=== PATIENT | female | born 1950 | race Caucasian/White ===

== ENCOUNTER → 2019-09-27 13:06 | Outpatient (CLI) | payer MEDICARE, SELFPAY ==
--- NOTE | ~2019-09-27 | XR_ITS ---
EXAMINATION: XR chest 2V EXAM DATE: 09/27/2019 13:14 INDICATION: Cough for one month. Pneumonia. TECHNIQUE: Frontal and lateral projections of the chest obtained and reviewed. Comparison is made to prior examination from 06/13/2018. FINDINGS: There is severe chronic hyperinflation. There is aortic arterial sclerosis. The lungs are clear. There are no pleural effusions. The cardiomediastinal silhouette is within normal limits. T here is no pneumothorax suspected. There is mild to moderate thoracolumbar scoliosis. There is no si gnificant interval change. IMPRESSION: 1. No acute cardiopulmonary findings. 2. Hyperinflation. Reviewed, dictated and finalized at location A.
== END ==
PROVIDERS: PCP Internal Medicine; Visit Provider Internal Medicine
DX: J18.9 Pneumonia, unspecified organism (principal); R91.8 Other nonspecific abnormal finding of lung field
CPT/HCPCS: 71046

== ENCOUNTER 2020-05-17 09:32 | Emergency (ER) | payer MEDICARE, SELFPAY ==
--- NOTE | ~2020-05-17 | XR_ITS ---
EXAMINATION: XR chest 2V EXAM DATE: 05/17/2020 09:55 INDICATION: COUGH x 8 mos, afebrile, back pain, prev smoker, hx of HTN . TECHNIQUE: Frontal and lateral projections of the chest obtained and reviewed. Comparison is made to prior examination from 09/27/2019. FINDINGS: Severe chronic hyperinflation. There is aortic arteriosclerosis. The lungs are clear. The re are no pleural effusions. The cardiomediastinal silhouette is within normal limits. There is no pneumothorax suspected. Mild thoracic, moderate lumbar scoliosis. IMPRESSION: 1. No acute cardiopulmonary findings. 2. Hyperinflation. Reviewed, dictated and finalized at location B. [employer]PER[employer]
[2020-05-17 09:37] VITALS: BP 157/88; PULSE 93; RESP 16; TEMP 37.3; O2SAT 97
--- NOTE | 2020-05-17 10:05 | ED.URI ---
HPI - URI/Sore Throat General Chief Complaint: Upper Respiratory Infection Stated Complaint: back pain/sinus draingage Source: patient Mode of arrival: ambulatory Limitations: no limitations History of Present Illness HPI Narrative: 70-year-old female presents to [facility] for complaints of postnasal drainage, chest congestion, dry cough and intermittent shortness of breath for the past 2 weeks. Patient reports that she has a long history of pneumonia. Patient reports that she was diagnosed in September and January. Patient reports that 2 weeks ago her primary care provider again diagnosed with pneumonia without completing a chest x-ray. Patient reports that she finished her antibiotic approximately 4 days ago. Patient is a smoker. Patient denies fever, bodies, chills, nausea, vomiting, diarrhea or wheezing. MD elicited complaint: cough Onset (ago): week(s) (2) Able to tolerate fluids by mouth: Yes Relieving factors: nothing Treatments prior to arrival: none Related Data Allergies Allergy/AdvReac Type Severity Reaction Status Date / Time celecoxib Allergy Severe Hives Verified 05/17/20 09:38 levofloxacin Allergy Intermediate itching Verified 05/17/20 09:38 Sulfa (Sulfonamide Allergy Intermediate Nausea Verified 05/17/20 09:38 Antibiotics) Review of Systems Constitutional: Constitutional: Denies chills, Denies fatigue, Denies fever(s) and Denies weakness ENT: Denies dysphagia, Denies dizziness, Denies epistaxis and Denies sore throat Comments: PND Cardiovascular: Cardiovascular: Denies chest pain and Denies radiating jaw, neck or arm pain Respiratory: Respiratory: Reports chest congestion, Reports cough, Reports dyspnea and Denies wheezing Gastrointestinal: Gastrointestinal: Denies abdominal pain, Denies constipation, Denies diarrhea, Denies nausea and Denies vomiting Musculoskeletal: Musculoskeletal: Denies back pain, Denies joint swelling and Denies muscle cramps Neurologic: Denies vertigo, Denies dizziness and Denies syncope Endocrine: Endocrine: Denies fatigue [facility] Past Medical History Medical History (Updated 05/17/20 @ 10:16 by Laura Dangelo APRN) Borderline hyperlipidemia Hypertension Tonsillectomy planned Family History Family History Mother Carcinoma of colon Father Carcinoma of colon Social History Social History Smoking status: Current every day smoker Second hand tobacco smoke exposure: No Alcohol intake: current Comments At time of signature, I agree with nursing past medical, surgical, social and family history. There is no relevant family history pertinent to the presenting complaint. Exam Const: General: no acute distress and alert Nutritional Appearance: well nourished Orientation/consciousness: patient oriented x3 HENMT: Head: normal to inspection Face and sinus: sinuses nontender Mouth: Yes Normal oral and palatal mucosa present, Yes lip normal and Yes moist mucous membranes Other: Mild amount of clear post-nasal drainage noted Neck: Neck: normal visual inspection and no lymphadenopathy Chest: Chest palpation & inspection: normal inspection of the chest Resp: Effort & Inspection: normal respiratory effort, not labored, not tachypneic and no use of accessory muscles Auscultation: no rales, no rhonchi, no wheezes and diminished lung sounds diffuse Cardio: Rate: regular rate, not bradycardic and not tachycardic Rhythm: regular rhythm Heart sounds: no murmurs Skin: General skin exam: normal color, no jaundice and no pallor Rashes: no rashes Wounds: no wounds Neuro: General: patient oriented x3, moves all extremities, no meningeal signs and no focal motor deficits Speech: normal speech Psych: Appearance: grossly normal Mental Status: mental status grossly normal Affect: normal affect Thought content: Yes Normal thought content present Course Vital Sign
== END 2020-05-17 10:21 | disposition home or self-care (01) ==
PROVIDERS: Emergency Provider Nurse Practitioner Family; PCP Internal Medicine
DX: J06.9 Acute upper respiratory infection, unspecified (principal); F17.200 Nicotine dependence, unspecified, uncomplicated; I10 Essential (primary) hypertension
CPT/HCPCS: 71046; 99213; G0463

== ENCOUNTER 2020-05-22 00:35 | Outpatient (CLI) | payer MEDICARE, SELFPAY ==
[2020-05-22 19:47] LABS: SARS-CoV-2 RNA PCR Negative
== END 2020-05-22 00:36 | disposition home or self-care (01) ==
LOC: ANHCOVIDDT 00:35
PROVIDERS: PCP Internal Medicine; Visit Provider Internal Medicine Gastroenterology
DX: Z01.818 Encounter for other preprocedural examination (principal); Z20.828 Contact with and (suspected) exposure to other viral communicable diseases
CPT/HCPCS: 87635; C9803; U0003

== ENCOUNTER 2020-05-25 00:20 | Day surgery (SDC) | payer MEDICARE, SELFPAY ==
[2020-05-18 14:35] VITALS: BMI 20.1
[2020-05-25 07:07] VITALS: BP 144/77; PULSE 108; RESP 16; TEMP 36.6; O2SAT 95; BMI 19.6
--- NOTE | 2020-05-25 07:12 | WPDANESEPPF ---
Anes - Initial Pre Proc Eval Procedure: Operation Date: 05/25/20 08:30 Proposed Procedures p Screening Colonoscopy - Zachary Martinez MD Date/Time: 05/25/20 07:12 Surgeon: Zachary Martinez MD Pre Op Diagnosis: Hx of Colon Polyps Patient Data Age: 70 Gender: F Height: 1.57 m Weight: 48.8 kg Last Vital Signs Temp 36.6 C 05/25/20 07:07 Pulse 108 H 05/25/20 07:07 Resp 16 05/25/20 07:07 BP 144/77 H 05/25/20 07:07 Pulse Ox 95 05/25/20 07:07 Allergies Allergy/AdvReac Type Severity Reaction Status Date / Time celecoxib Allergy Severe Hives Verified 05/25/20 07:06 levofloxacin Allergy Intermediate itching Verified 05/25/20 07:06 Sulfa (Sulfonamide Allergy Intermediate Nausea Verified 05/25/20 07:06 Antibiotics) Home Medications Medication Instructions Recorded Confirmed Type atorvastatin 20 mg tablet 20 mg PO DAILY 90 Days #90 tablet 04/30/20 05/18/20 Rx ergocalciferol (vitamin D2) 1,250 50,000 unit PO MONTHLY 90 Days #3 04/30/20 05/18/20 Rx mcg (50,000 unit) capsule cap pantoprazole 40 mg tablet,delayed 40 mg PO DAILY 90 Days #90 tablet 04/30/20 05/18/20 Rx release perindopril erbumine 8 mg tablet 8 mg PO DAILY 90 Days #90 tablet 04/30/20 05/18/20 Rx albuterol sulfate [ProAir HFA] 1 inh INHALATION QID PRN #6.7 g 05/17/20 05/18/20 Rx loratadine [Claritin] 10 mg PO DAILY PRN #30 tablet 05/17/20 05/18/20 Rx ibuprofen 600 mg PO TID PRN 05/18/20 05/18/20 History Patient hx anesthesia problems: none Family hx anesthesia problems: none PMFSH Past Medical History Medical History (Updated 05/18/20 @ 00:00 by Petrona Austin) Borderline hyperlipidemia Hypertension Tonsillectomy planned Family History Family History Mother Carcinoma of colon Father Carcinoma of colon Social History Social History Smoking packs per day: 0.5 Smoking cigarettes per day: 10.0 Years smoked: 50 Smoking pack-years: 25.00 Smoking status: Current every day smoker Tobacco type: cigarettes Second hand tobacco smoke exposure: No Alcohol intake: current Living arrangements: with family Gender identity (if verbalized by the patient): Female Spiritual care concerns: No Anes - Eval Final PreProcedure Day of Procedure 05/25/20 07:12 Patient weight: normal Heart: regular rate and rhythm Lungs: clear to auscultation and normal air movement Airway: Mallampati scale class II Neurological: alert and oriented Last oral intake: >/= 8 hours ASA classification: II Emergent: no Anesthetic plan: proceed Anesthesia type and monitoring: general GIVS Informed Consent: The patient's anesthetic plan and its attendant risks and benefits were discussed with the patient/family/POA. Questions were solicited and answers provided to the satisfaction of the patient/family/POA.
[2020-05-25] MEDS: LACTATED RINGERS 1,000 ML 150 ML IV CONT (07:18)
--- NOTE | 2020-05-25 08:05 | WPDGICN ---
Assessment and Plan Assessment and plan (1) Personal history of colonic polyps: Code(s): Z86.010 - Personal history of colonic polyps Status: Acute Assessment and Plan: Patient has had colon polyps on several occasions in the past. Family history is significant both mother father and grandfather have had colon cancer. Plan is for surveillance colonoscopy now and at every 2-3 year intervals in the future. (2) Encounter for colonoscopy in patient with family history of colon cancer: Code(s): Z12.11 - Encounter for screening for malignant neoplasm of colon; Z80.0 - Family history of malignant neoplasm of digestive organs Status: Acute GI Consult Note Consult date/time: 05/25/20 08:05 HPI: Delilah Baltazar is a 70 year old female Presents for follow-up surveillance colonoscopy. Patient has had colon polyps in the past. Most recent colonoscopy 2018. Revealed several colon polyps. Family history is significant both mother father and grandfather all of had colon cancer. Patient states that her current weight appetite bowel movements are normal. She denies abdominal pain. She has had no bleeding. [facility] Past Medical History Medical History (Updated 05/25/20 @ 08:06 by Zachary Martinez MD) Borderline hyperlipidemia Hypertension Tonsillectomy planned Family History Family History Mother Carcinoma of colon Father Carcinoma of colon Social History Social History Smoking packs per day: 0.5 Smoking cigarettes per day: 10.0 Years smoked: 50 Smoking pack-years: 25.00 Smoking status: Current every day smoker Tobacco type: cigarettes Second hand tobacco smoke exposure: No Alcohol intake: current Living arrangements: with family Gender identity (if verbalized by the patient): Female Spiritual care concerns: No Meds Home Medications and Allergies Home Medications Medication Instructions Recorded Confirmed Type atorvastatin 20 mg tablet 20 mg PO DAILY 90 Days #90 tablet 04/30/20 05/18/20 Rx ergocalciferol (vitamin D2) 1,250 50,000 unit PO MONTHLY 90 Days #3 04/30/20 05/18/20 Rx mcg (50,000 unit) capsule cap pantoprazole 40 mg tablet,delayed 40 mg PO DAILY 90 Days #90 tablet 04/30/20 05/18/20 Rx release perindopril erbumine 8 mg tablet 8 mg PO DAILY 90 Days #90 tablet 04/30/20 05/18/20 Rx albuterol sulfate [ProAir HFA] 1 inh INHALATION QID PRN #6.7 g 05/17/20 05/18/20 Rx loratadine [Claritin] 10 mg PO DAILY PRN #30 tablet 05/17/20 05/18/20 Rx ibuprofen 600 mg PO TID PRN 05/18/20 05/18/20 History Allergies Allergy/AdvReac Type Severity Reaction Status Date / Time celecoxib Allergy Severe Hives Verified 05/25/20 07:06 levofloxacin Allergy Intermediate itching Verified 05/25/20 07:06 Sulfa (Sulfonamide Allergy Intermediate Nausea Verified 05/25/20 07:06 Antibiotics) Vital Signs Vital Signs - 24 hr 05/25/20 07:07 Temperature 97.8 F Pulse Rate 108 H Respiratory Rate 16 Blood Pressure 144/77 H Pulse Oximetry 95 Exam Narrative: Exam Narrative: Physical exam reveals patient to be alert. Vital signs stable. HEENT exam unremarkable. Lungs are clear to auscultation and percussion. Heart is without murmur or extra sounds. Abdominal exam bowel sounds are present soft nontender with no organomegaly. Digital external rectal exam normal.
[2020-05-25 08:30] VITALS: BP 94/52; PULSE 77; RESP 23; O2SAT 95
[2020-05-25 08:40] VITALS: BP 125/62; PULSE 67; RESP 18; O2SAT 93
[2020-05-25 08:50] VITALS: BP 134/68; PULSE 72; RESP 16; O2SAT 93
== END 2020-05-25 09:07 | disposition home or self-care (01) ==
PROVIDERS: PCP Internal Medicine; Visit Provider Internal Medicine Gastroenterology
PROC: 0DJD8ZZ Inspection of Lower Intestinal Tract, Via Natural or Artificial Opening Endoscopic (ICD-10-PCS; CPT 45378; principal; 2020-05-25 08:30)
DX: Z12.11 Encounter for screening for malignant neoplasm of colon (principal); K63.5 Polyp of colon; K62.1 Rectal polyp; K57.30 Diverticulosis of large intestine without perforation or abscess without bleeding; K64.8 Other hemorrhoids; Z80.0 Family history of malignant neoplasm of digestive organs; I10 Essential (primary) hypertension; F17.210 Nicotine dependence, cigarettes, uncomplicated
CPT/HCPCS: 45385; 45388; 87635; 88305; C9803; J2704; J7120; U0003

== ENCOUNTER 2021-02-25 14:22 | Outpatient (CLI) | payer MEDICARE, SELFPAY ==
--- NOTE | ~2021-02-25 | CT_ITS ---
EXAMINATION:CT lung screening DATE: 02/25/2021 14:39 INDICATION: Personal history of tobacco dependence. Current smoker with 50 pack year history. TECHNIQUE: Computed tomography (CT) of the chest was performed without intravenous contrast. Automate d exposure control and iterative reconstruction technique were employed. The dose-length product (DLP ) was 62.28 mGy-cm. COMPARISON: Chest 2 views 05/17/2020 FINDINGS: There is moderate emphysema. There is mild atelectasis bilaterally. There is mild scarring at the lung apices. Calcified left hilar and mediastinal lymph nodes are consistent with old granulom atous disease. The heart size is normal. There are coronary artery calcifications. No pericardial eff usion. Calcifications in the spleen are consistent with old granulomatous disease. There is a 1.9 cm cyst in the liver. There is levoscoliosis of cervicothoracic spine. There is mild thoracic spondylosi s. IMPRESSION: 1. Lung-RADS category 2: Benign appearance or behavior. Continue annual screening with noncontrast lo w-dose chest CT in 12 months. Reviewed, dictated and finalized at location B. IMPRESSION: 1. Lung-RADS category 2: Benign appearance or behavior. Continue annual screeni ng with noncontrast low-dose chest CT in 12 months.
== END 2021-02-25 14:23 | disposition home or self-care (01) ==
PROVIDERS: PCP Internal Medicine; Visit Provider Internal Medicine
DX: Z87.891 Personal history of nicotine dependence (principal)
CPT/HCPCS: 71271

== ENCOUNTER 2021-04-01 14:05 | Outpatient (CLI) | payer MEDICARE, SELFPAY ==
--- NOTE | ~2021-04-01 | US_ITS ---
EXAMINATION: US arterial ankle brachial ind DATE: 04/01/2021 14:37 INDICATION: Peripheral vascular disease. TECHNIQUE: Segmental pressures and plethysmographic and Doppler waveforms of the brachial and lower e xtremity arteries were obtained. COMPARISON: None. FINDINGS: Right and left brachial artery pressures of 152 mm Hg and 149 mm Hg, respectively, are concordant (no rmal difference <= 30 mmHg). The right ankle-brachial index (ASIA) is 0.89 (normal >= 0.9-1.0). The right great toe-brachial index (TBI) is 0.70 (normal >= 0.65). Arterial Doppler waveforms are biphasic with brisk systolic upstrokes at both the right posterior tibial and dorsalis pedis arteries. The left ASIA is 1.15. The left TBI is 0.68. Arterial Doppler waveforms are biphasic with brisk systol ic upstrokes at both the left posterior tibial and dorsalis pedis arteries. IMPRESSION: 1. Possible mild arterial occlusive disease to the right lower limb with borderline right ASIA but nor mal right TBI. 2. No significant arterial occlusive disease to the left lower limb with normal left ASIA and TBI. Reviewed, dictated and finalized at location A. IMPRESSION: 1. Possible mild arterial occlusive disease to the right lower limb with border line right ASIA but normal right TBI. 2. No significant arterial occlusive disease to the left lower limb with normal left ASIA and TBI.
== END 2021-04-01 14:06 | disposition home or self-care (01) ==
PROVIDERS: PCP Internal Medicine; Visit Provider Internal Medicine
DX: I73.9 Peripheral vascular disease, unspecified (principal)
CPT/HCPCS: 93922

== ENCOUNTER 2021-04-15 14:23 | Outpatient (CLI) | payer MEDICARE, SELFPAY ==
--- NOTE | ~2021-04-15 | MM_ITS ---
EXAMINATION: MM screening jorge l BI w doug HISTORY: Screening mammogram TECHNIQUE: Craniocaudal and mediolateral oblique 3-D tomosynthesis images were obtained and synthetic 2-D images were generated. CAD analysis was submitted and interpreted. COMPARISON: No prior mammogram is available for comparison at this institution. BREAST PARENCHYMAL COMPOSITION: The breasts are heterogeneously dense, which may obscure small masses . FINDINGS: RIGHT BREAST: There is a possible mass in the middle third of the slightly outer breast best apprecia asif 3.5 cm from the nipple on the craniocaudal view. LEFT BREAST: There is no evidence of suspicious mass, calcification, or architectural distortion to s uggest malignancy. IMPRESSION: 1. Possible right breast mass. 2. Additional mammographic views and possible breast ultrasound are recommended. BI-RADS Category 0: Incomplete: Needs additional imaging evaluation. Reviewed, dictated and finalized at location A. IMPRESSION: 1. Possible right breast mass. 2. Additional mammographic views and possible breast ultrasound are recommended . BI-RADS Category 0: Incomplete: Needs additional imaging evaluation.
--- NOTE | ~2021-04-15 | DEXA_ITS ---
Bone Density Report Name: Delilah Baltazar Age: 71 Sex: Female Ethnicity: White Date of : 1950 Indication: postmenopausal; Referring Provider: AMARILYS WESTFALL Study: Bone densitometry was performed. Exam Date: April 15, 2021 Accession number: [id number] Bone Density: Region BMD T-score Z-score Classification AP Spine (L1, L2) 1.001 0.2 2.2 Normal Femoral Neck (Left) 0.680 -1.5 0.3 Osteopenia Total Hip (Left) 0.800 -1.2 0.4 Osteopenia Total Hip Bilateral Avg 0.797 -1.2 0.4 Osteopenia Femoral Neck (Right) 0.662 -1.7 0.2 Osteopenia Total Hip (Right) 0.793 -1.2 0.3 Osteopenia World Health Organization criteria for BMD impression classify patients as: Normal (T-score at or above -1.0), Osteopenia (T-score between -1.0 and -2.5), or Osteoporosis (T-score at or below -2.5). 10-year Fracture Risk(1): Major Osteoporotic Fracture 9.7% Hip Fracture 1.7% Reported Risk Factors: [place] (), Neck BMD=0.662, BMI=21.9 (1) FRAX(R) Version 3.08. Fracture probability calculated for an untreated patient. Fracture probability may be lower if the patient has received treatment. Clinical Information Provided by Patient: Has used the following medications: Vitamin D Patient maximum height was 62 Menopause Age: 50 Drinks caffeinated beverages Onset of menses at age 14 Number of children 2 Impression: The patient has low bone mass, based on the Right Femoral Neck T-score. The patient has an estimated ten-year risk of hip fracture of 1.7% and an estimated ten-year risk of major fracture of 9.7%, based on the WHO FRAX algorithm. Discussion: BONE DENSITY IS LOW AT ONE OR MORE SKELETAL SITES. This patient's lowest T-score is low at one or more skeletal sites. It meets the World Health Organization's (WHO) criteria for ?low bone mass? (T-score between -1.0 and -2.5). The patient's 10-year risk of fracture as calculated by FRAX is less than the threshold where pharmacological therapy is recommended by the National Osteoporosis Foundation (NOF). However, all treatment decisions require clinical judgment and consideration of individual patient factors, including patient preferences, comorbidities, previous drug use, risk factors not captured in the FRAX model (e.g., frailty, falls, vitamin D deficiency, increased bone turnover, interval significant decline in bone density) and possible under or overestimation of fracture risk by FRAX. The patient should follow a healthful lifestyle (good nutrition with adequate calcium and vitamin D, and appropriate weight-bearing exercise). Follow-Up: Consider repeating this study in 2 to 3 years to reassess this patient's status, or sooner if there is some new clinical indication. Reported by: [facility] on 04/15/2021 2:51:00 PM. Re
== END 2021-04-15 14:24 | disposition home or self-care (01) ==
LOC: ANHIMG 14:25
PROVIDERS: PCP Internal Medicine; Visit Provider Internal Medicine
DX: Z12.31 Encounter for screening mammogram for malignant neoplasm of breast (principal); Z78.0 Asymptomatic menopausal state; M85.89 Other specified disorders of bone density and structure, multiple sites; R92.8 Other abnormal and inconclusive findings on diagnostic imaging of breast
CPT/HCPCS: 77063; 77067; 77080

== ENCOUNTER 2021-04-24 10:53 | Outpatient (CLI) | payer MEDICARE, SELFPAY ==
--- NOTE | ~2021-04-24 | MMUS_ITS ---
EXAMINATION: MM diagnostic jorge l RT w doug, US breast RT limited HISTORY: Follow-up right breast asymmetry TECHNIQUE: Additional 3-D tomosynthesis images of the right breast were performed and synthetic 2-D i mages were generated. CAD analysis was submitted and interpreted. High resolution Limited right breas t ultrasound was performed. COMPARISON: 04/15/2021 BREAST PARENCHYMAL COMPOSITION: Breast composed of scattered areas of fibroglandular density. FINDINGS: MAMMOGRAPHIC FINDINGS: There are no suspicious masses, calcifications or architectural distortion in the right breast to sug gest malignancy. ULTRASOUND: Limited right breast ultrasound: Normal heterogeneous echotexture without focal solid or cystic mass. IMPRESSION: 1. No evidence for malignancy in the right breast. 2. Routine yearly screening mammogram and regular clinical breast examination are recommended. BI-RADS Category 1: Negative Reviewed, dictated and finalized at location A. IMPRESSION: 1. No evidence for malignancy in the right breast. 2. Routine yearly screening mammogram and regular clinical breast examination a re recommended. BI-RADS Category 1: Negative
== END 2021-04-24 10:54 | disposition home or self-care (01) ==
LOC: ANHIMG 10:54
PROVIDERS: PCP Internal Medicine; Visit Provider Internal Medicine
DX: R92.8 Other abnormal and inconclusive findings on diagnostic imaging of breast (principal)
CPT/HCPCS: 76642; 77061; 77065; G0279

== ENCOUNTER 2022-02-20 14:40 | Emergency (ER) | payer MEDICARE, SELFPAY ==
--- NOTE | 2022-02-20 14:42 | ED.UPPEXIN ---
HPI - Extremity Injury (Upper) General Chief Complaint: Extremity Problem,Nontraumatic Stated Complaint: Left Wrist Pain Time Seen by Provider: 02/20/22 14:42 Source: patient Mode of arrival: ambulatory Limitations: no limitations History of Present Illness HPI narrative: Ms. Baltazar is a 71-year-old female patient presenting to the clinic today with complaints of left wrist pain times. She reports Related Data Home Medications Medication Instructions Recorded Confirmed cholecalciferol (vitamin D3) 1,250 50,000 unit PO MONTHLY 11/29/20 02/20/22 mcg (50,000 unit) capsule triamcinolone acetonide 10 mg/mL 10 mg subcut .3 month 02/21/21 02/20/22 suspension for injection Allergies Allergy/AdvReac Type Severity Reaction Status Date / Time celecoxib Allergy Severe Hives Verified 02/20/22 14:48 levofloxacin Allergy Intermediate Nausea Verified 02/20/22 14:48 Sulfa (Sulfonamide Allergy Intermediate Nausea Verified 02/20/22 14:48 Antibiotics) Review of Systems Review of Systems: Pertinent positives per HPI. Patient denies any fever, chills, rash, headache, visual changes, dizziness, cough, runny nose, sore throat, shortness of breath, chest pain, palpitations, nausea, vomiting, diarrhea, constipation, abdominal pain, or any urinary issues. [facility] Past Medical History Medical History Borderline hyperlipidemia Hypertension Tonsillectomy planned Surgical History Surgical History H/O colonoscopy 05/25/2020 Dr. Martinez + colonic polyp repeat in 2-3 years. Family History Family History Mother Carcinoma of colon Father Carcinoma of colon Social History Social History Smoking packs per day: 0.5 Smoking cigarettes per day: 10.0 Years smoked: 50 Smoking pack-years: 25.00 Smoking status: Former smoker Tobacco type: cigarettes Second hand tobacco smoke exposure: No Smoking end date: 12/14/20 Alcohol intake: never Substance use: never Gender identity (if verbalized by the patient): Female Spiritual care concerns: No Comments At the time of my signature, I reviewed and agree with the nursing past medical, surgical, social, and family history. There is no relevant family history pertinent to the patient complaint. Exam Narrative: General: Well-developed, well nourished, in no apparent distress Head: Normocephalic, atraumatic. Cardio: Regular rate and rhythm, s1 and s2 normal, no murmur appreciated. Resp: Clear to auscultation bilaterally, no rhonchi, rales, wheezing or rubs. Musculoskeletal: No deformity, non-tender to palpation, grossly normal range of motion, muscle strength strong and equal, peripheral pulse strong, no edema, no cyanosis, normal gait and station Course Course Emergency Course: Portions of this record may have been created with voice recognition software. Level of Care: Express Care Visit Vital Signs Vital signs: Vital signs reviewed MDM - Extremity Injury (Upper) MDM Narrative Medical decision making narrative: At the time of visit patient is resting comfortably on the exam table. Differential Diagnosis Differential diagnosis: Likely sprain and strain of wrist and fracture of wrist Discharge Plan Discharge Clinical Impression: Acute pain of left wrist Patient Disposition: Home, Self-Care Condition: Stable Instructions: Antibiotic Form, Arthralgia (ED), Tendinitis (ED) Additional Instructions: Left wrist pain likely from tendonitis. Take Naproxen as prescribed. Rest, ice, and elevate. Wear wrist brace x 1 week. Follow up with your PCP in 1-2 weeks if symptoms persist. Prescriptions: New naproxen 500 mg tablet 500 mg PO BID PRN (Reason: pain) 7 Days Qty: 14 0RF No A
[2022-02-20 14:49] VITALS: BP 163/81; PULSE 74; RESP 16; TEMP 35.8; O2SAT 96
[2022-02-20 14:50] VITALS: BP 163/81; PULSE 74; RESP 16; TEMP 35.8; O2SAT 96
== END 2022-02-20 14:58 | disposition home or self-care (01) ==
PROVIDERS: Emergency Provider Nurse Practitioner Family; PCP Internal Medicine
DX: M25.532 Pain in left wrist (principal); Z87.891 Personal history of nicotine dependence; I10 Essential (primary) hypertension
CPT/HCPCS: 99213; G0463

== ENCOUNTER 2022-02-24 07:48 | Outpatient (CLI) | payer MEDICARE, SELFPAY ==
[2022-02-24 09:00] LABS: Basophils Absolute Auto 0.1 K/mm3 (0.0-0.1); Basophils Percent Auto 0.8 % (0.2-1.2); Eosinophils Absolute Auto 0.3 K/mm3 (0-0.3); Eosinophils Percent Auto 4.3 % (0-4.4); Hematocrit 38.9 % (37.0-47.0); Hemoglobin 12.1 g/dL (12.0-15.0); Immature Granulocyte Absolute 0.02 K/mm3 (0.00-0.031); Immature Granulocyte Percent A 0.3 % (0-0.5); Lymphocytes Absolute Auto 1.51 K/mm3 (0.9-3.2); Lymphocytes Percent Auto 24.8 % (18.3-44.2); Mean Corpuscular HGB Conc 31.1 g/dl (32-36); Mean Corpuscular Hemoglobin 29.4 pg (26-34); Mean Corpuscular Volume 94.4 fl (80-100); Monocytes Absolute Auto 0.8 K/mm3 (0.1-0.6); Monocytes Percent Auto 12.3 % (2.6-8.5); Neutrophils Absolute Auto 3.5 K/mm3 (1.3-6.7); Neutrophils Percent Auto 57.5 % (45.5-73.1); Platelet Count Result 214 k/mm3 (150-375); Red Blood Count 4.12 M/mm3 (4.2-5.4); White Blood Count 6.1 K/mm3 (4.5-10.0)
[2022-02-24 09:11] LABS: Albumin Level 4.2 g/dL (3.5-5.1); Anion Gap 8 mmol/L (8-16); Blood Urea Nitrogen 23 mg/dL (7-17); Calcium 9.4 mg/dL (8.4-10.2); Carbon Dioxide 28 mmol/L (22-30); Chloride 100 mmol/L (98-107); Estimated Glomerular Filt Rate > 60; Glucose 91 mg/dL (65-110); Sodium 136 mmol/L (137-145)
[2022-02-24 09:29] LABS: Urine Cotinine NEGATIVE
[2022-02-24 09:41] LABS: Hemoglobin A1C 5.4 % (<5.7)
== END 2022-02-24 07:49 | disposition home or self-care (01) ==
LOC: ANHSURGERY 07:51
PROVIDERS: PCP Internal Medicine; Visit Provider Orthopaedic Surgery
DX: Z01.818 Encounter for other preprocedural examination (principal); M17.0 Bilateral primary osteoarthritis of knee
CPT/HCPCS: 80048; 80307; 82040; 83036; 85025; 87070

== ENCOUNTER 2022-02-28 07:25 | Outpatient (CLI) | payer MEDICARE, SELFPAY ==
--- NOTE | ~2022-02-28 | XR_ITS ---
EXAMINATION: XR wrist LT min 3V DATE: 02/28/2022 07:50 INDICATION: Left wrist pain TECHNIQUE: Posteroanterior, ulnar deviation, oblique, and lateral views of the left wrist were obtain ed. COMPARISON: None available FINDINGS: No fracture is identified. There is moderate osteoarthritis at the triscaphe joint and mild osteoarthritis at the first carpometacarpal joint. Negative ulnar variance is noted. The soft tissue s are unremarkable. IMPRESSION: 1. Osteoarthritis without acute osseous abnormality. Reviewed, dictated and finalized at location A.
== END 2022-02-28 07:26 | disposition home or self-care (01) ==
PROVIDERS: PCP Internal Medicine; Visit Provider Nurse Practitioner
DX: M25.532 Pain in left wrist (principal); M19.032 Primary osteoarthritis, left wrist
CPT/HCPCS: 73110

== ENCOUNTER 2022-03-12 00:30 | Day surgery (SDC) | payer MEDICARE, SELFPAY ==
--- NOTE | 2022-02-24 07:49 | PC.NURSE ---
PRE-OP INSTRUCTIONS, PLEASE READ CAREFULLY Report to the Outpatient Waiting Room, entrance under the green pavilion located off [facility], at time _1000_ on date _03/12/22_. OR Time: _1200_. - You and your visitor will be asked to self-screen and do not enter if you have any COVID symptoms. - A mask is required within the hospital. - Only one visitor and NO children visitors are allowed at this time. - The patient visitor is requested to leave or wait in car when not with patient due to restrictions. -PACK A SMALL OVERNIGHT BAG AND LEAVE IN THE CARE. VISITING HOURS 10AM-8PM. PARK IN FRONT PARKING LOT AND USE MAIN HOSPITAL ENTRANCE. Patients may have clear liquids (water, carbonated beverages, clear teas, apple juice) until 3 hours prior to surgery (0900 AM) with a maximum of 20 ounces. - No food from midnight until time of surgery Take the following medications with a SIP of water the morning of surgery: _AMLODIPINE_ Medications to discontinue per DR. LO - _IBUPROFEN 7 DAYS PRIOR TO SURGERY, Date to take last dose 03/04/22_ Please no make-up, nail albanian, hairspray, perfume, deodorant, or body powder the day of surgery. No jewelry (including any body piercings) or valuables the day of surgery, leave them at home. Please take a shower or bath the night before, or the morning of, surgery with an antibacterial soap. Wear comfortable, loose fitting clothing. - Jewelry must be removed prior to entering the operating room. Rings and piercings that are not removed may be cut off. - The hospital will not accept responsibility for valuables. - Please leave all valuables, including medications, at home the day of surgery. If you are going home after surgery, a licensed warehouse driver must drive you home. - NO public transportation without another adult. - We recommend that an adult stay with you for 24 hours following discharge. - We also recommend that you do not drive, make important decision, drink alcoholic beverages, or take any drugs that were not prescribed by your health care provider for at least 24 hours after your discharge time. Follow any additional instructions given to you from your surgeon. TOTAL JOINT CLASS 02/26/22 @ [facility] MAIN ENTRANCE - LOWER LEVEL If you or anyone in your household have experienced Covid symptoms in the past week, please notify your surgeon or the nurse liaison at the phone number below for possible testing. Instructions given to __PT__and asked if any additional questions and then verbalized understanding. Patient advised to call surgeon office or pre surgery nurse liaison [phone] if any additional questions.
[2022-02-24 08:12] VITALS: BP 154/78; PULSE 76; RESP 18; TEMP 37; O2SAT 93; BMI 23.2
--- NOTE | 2022-03-10 12:03 | PM.IMHP ---
H&P: HPI History of Present Illness Date/Time: 03/10/22 12:03 Chief Complaint: Bilateral knee DJD Narrative: 71-year-old female patient of Dr. Nick who presents today for right total knee arthroplasty with cortisone injection in the left. Patient has been having pain in her knees for years. She has been treating this nonsurgically with cortisone injections every 3 months as well as ibuprofen 600 mg 3 times a day. She has severe medial compartment arthritis in both knees. She has reached a point where the injections and the medications are not improving her symptoms well enough. She is a very active individual and the pain in her knee starting to prevent her from being active. She feels this point she is ready to proceed with total knee arthroplasty. She will also be receiving cortisone injection in the left knee at the time surgery as well. Review of Systems Review of Systems: All systems reviewed & are unremarkable except as noted in HPI and below PMFSH Past Medical History Medical History Borderline hyperlipidemia Hypertension Tonsillectomy planned Surgical History Surgical History H/O colonoscopy 05/25/2020 Dr. Martinez + colonic polyp repeat in 2-3 years. Family History Family History Mother Carcinoma of colon Father Carcinoma of colon Social History Social History Smoking packs per day: 0.5 Smoking cigarettes per day: 10.0 Years smoked: 50 Smoking pack-years: 25.00 Smoking status: Former smoker Tobacco type: cigarettes Second hand tobacco smoke exposure: No Smoking end date: 12/14/20 Additional smoking assessment comments: PT DENIES ALL FORMS OF TOBACCO USE Alcohol intake: never Substance use: never Substance use type: does not use Gender identity (if verbalized by the patient): Female Spiritual care concerns: No Meds Home Medications and Allergies Home Medications Medication Instructions Recorded Confirmed Type amlodipine 5 mg tablet 5 mg PO DAILY #90 tabs 09/30/21 02/28/22 Rx pantoprazole 40 mg tablet,delayed 40 mg PO DAILY 90 days #90 tabs 09/30/21 02/28/22 Rx release tiotropium 2.5 mcg-olodaterol 2.5 2 puff inhalation DAILY #4 grams 09/30/21 02/28/22 Rx mcg/actuation mist for inhalation (Stiolto Respimat) atorvastatin 20 mg tablet 20 mg PO DAILY 90 days #90 tabs 10/15/21 02/28/22 Rx perindopril erbumine 8 mg tablet 8 mg PO DAILY 90 days #90 tabs 11/18/21 02/28/22 Rx cholecalciferol (vitamin D3) 50 50 mcg PO DAILY 02/24/22 02/28/22 History mcg (2,000 unit) tablet ibuprofen 600 mg tablet 600 mg PO TID PRN Pain 02/24/22 02/28/22 History Allergies Allergy/AdvReac Type Severity Reaction Status Date / Time celecoxib Allergy Severe Hives Verified 03/06/22 12:48 levofloxacin Allergy Intermediate Nausea Verified 03/06/22 12:48 Sulfa (Sulfonamide Allergy Intermediate Nausea Verified 03/06/22 12:48 Antibiotics) Exam Narrative: 71-year-old female alert pleasant. She is 5 ft tall 122 lb. Range of motion right knee is from 3-155 degrees. 2+ dorsalis pedis and posterior artery pulse palpable. Hip range of motion is full without discomfort. Negative Stinchfield maneuver. Normal quad strength. Mild tenderness over the medial joint line to palpation. No edema in lower extremity. Normal sensation to the right lower extremity. Resp: Auscultation: clear to auscultation bilaterally Cardio: Rate: regular rate Rhythm: regular rhythm Assessment and Plan Assessment and plan (1) Left knee DJD: Code(s): M17.12 - Unilateral primary osteoarthritis, left knee Status: Acute (2) Right knee DJD: Code(s): M17.11 - Unilateral primary osteoarthritis, right knee Status: Acute Plan 71-year-old female who has
--- NOTE | 2022-03-11 13:16 | WPDANESEPPF ---
Anes - Initial Pre Proc Eval Procedure: Operation Date: 03/12/22 12:00 Proposed Procedures p Total Right Knee Arthroplasty, Cortisone Injection Left Knee - Chacorta Dunlap MD Date/Time: 03/11/22 13:16 Surgeon: Chacorta Dunlap MD Pre Op Diagnosis: O.A. Both Knees Patient Data Age: 71 Gender: F Height: 1.57 m Weight: 57.7 kg Last Vital Signs Temp 37.0 C 02/24/22 08:12 Pulse 76 02/24/22 08:12 Resp 18 02/24/22 08:12 BP 154/78 H 02/24/22 08:12 Pulse Ox 93 02/24/22 08:12 O2 Del Method Room Air 02/24/22 08:12 Allergies Allergy/AdvReac Type Severity Reaction Status Date / Time celecoxib Allergy Severe Hives Verified 03/12/22 11:14 levofloxacin Allergy Intermediate Nausea Verified 03/12/22 11:14 Sulfa (Sulfonamide Allergy Intermediate Nausea Verified 03/12/22 11:14 Antibiotics) Home Medications Medication Instructions Recorded Confirmed Type amlodipine 5 mg tablet 5 mg PO DAILY #90 tabs 09/30/21 02/28/22 Rx pantoprazole 40 mg tablet,delayed 40 mg PO DAILY 90 days #90 tabs 09/30/21 02/28/22 Rx release tiotropium 2.5 mcg-olodaterol 2.5 2 puff inhalation DAILY #4 grams 09/30/21 02/28/22 Rx mcg/actuation mist for inhalation (Stiolto Respimat) atorvastatin 20 mg tablet 20 mg PO DAILY 90 days #90 tabs 10/15/21 02/28/22 Rx perindopril erbumine 8 mg tablet 8 mg PO DAILY 90 days #90 tabs 11/18/21 02/28/22 Rx cholecalciferol (vitamin D3) 50 50 mcg PO DAILY 02/24/22 02/28/22 History mcg (2,000 unit) tablet ibuprofen 600 mg tablet 600 mg PO TID PRN Pain 02/24/22 02/28/22 History Patient hx anesthesia problems: none Family hx anesthesia problems: none Results Review: All pre-operative results and documents have been reviewed as part of the pre-operative evaluation. [facility] Past Medical History Medical History (Updated 03/11/22 @ 13:17 by Antwon Lynn MD) Borderline hyperlipidemia Chronic GERD COPD (chronic obstructive pulmonary disease) with chronic bronchitis Hypertension Osteoarthritis Personal history of nicotine dependence Tonsillectomy planned Surgical History Surgical History H/O colonoscopy 05/25/2020 Dr. Martinez + colonic polyp repeat in 2-3 years. Family History Family History Mother Carcinoma of colon Father Carcinoma of colon Social History Social History Smoking packs per day: 0.5 Smoking cigarettes per day: 10.0 Years smoked: 50 Smoking pack-years: 25.00 Smoking status: Former smoker Tobacco type: cigarettes Second hand tobacco smoke exposure: No Smoking end date: 12/14/20 Additional smoking assessment comments: PT DENIES ALL FORMS OF TOBACCO USE Alcohol intake: never Substance use: never Substance use type: does not use Living arrangements: alone Gender identity (if verbalized by the patient): Female Spiritual care concerns: No Anes - Eval Final PreProcedure Day of Procedure 03/11/22 13:16 Patient weight: normal Heart: regular rate and rhythm Lungs: clear to auscultation and normal air movement Airway: Mallampati scale class II Neurological: alert and oriented Last oral intake: >/= 8 hours ASA classification: III Emergent: no Anesthetic plan: proceed Anesthesia type and monitoring: general LMA Results Review: All pre-operative results and documents have been reviewed as part of the pre-operative evaluation. Informed Consent: The patient's anesthetic plan and its attendant risks and benefits were discussed with the patient/family/POA. Questions were solicited and answers provided to the satisfaction of the patient/family/POA.
[2022-03-12] VITALS (14 sets, daily range): BP systolic 134–161; BP diastolic 56–90; PULSE 82–99; RESP 10–24; TEMP 33.9–37.2; O2SAT 87–98
--- NOTE | ~2022-03-12 | XR_ITS ---
EXAMINATION: XR knee RT 2V DATE: 03/12/2022 17:17 INDICATION: Postoperative evaluation following right total knee arthroplasty. TECHNIQUE: Anteroposterior and lateral views of the right knee were obtained. COMPARISON: None. FINDINGS: Right total knee arthroplasty without patellar resurfacing appears well seated and in near anatomic a lignment. No fractures identified. Expected postoperative subcutaneous and intra-articular gas. IMPRESSION: 1. Right total knee arthroplasty, negative for postoperative purposes. Reviewed, dictated and finalized at location A.
[2022-03-12] MEDS: LACTATED RINGERS 1,000 ML 30 ML IV CONT ×2 (11:00→16:19)
[2022-03-12] MEDS: TRANEXAMIC ACID 1,000MG/ISO100 1,000 MG/100 ML BAG 200 MG IVPB (11:00)
[2022-03-12] MEDS: ACETAMINOPHEN 500 MG TABLET 1000 MG PO (11:00)
--- NOTE | 2022-03-12 12:11 | WPDHPUPDATE1 ---
History and Physical Update Update Date/Time: 03/12/22 12:11 History and Physical has been reviewed, including an updated exam of the patient. There are NO changes in the patient's condition. Risks, benefits, and alternatives have been discussed and questions answered. Patient agrees to proceed with procedure.
[2022-03-12] MEDS: ceFAZolin 2 GM/D5W 50 ML 2 GM/50 ML BAG IVPB (12:44)
[2022-03-12] MEDS: LIDOCAINE HCL 1% PF 30 ML VIAL INFILTRATE (13:00)
[2022-03-12] MEDS: methylPREDNISolone ACETATE 80 MG/ML VIAL IM (13:00)
[2022-03-12] MEDS: ceFAZolin SODIUM 1 GM VIAL 3 GM IRRIGATION (13:23)
[2022-03-12] MEDS: GENTAMICIN BONE CEMENT REFOBACIN 1 EACH TOPICAL (14:38)
[2022-03-12] MEDS: TRANEXAMIC ACID 1,000 MG/10 ML AMPUL 1000 MG IV PUSH (15:02)
[2022-03-12] MEDS: ceFAZolin SODIUM 1 GM VIAL IV PUSH (15:03)
--- NOTE | 2022-03-12 16:00 | W.PM.PROC2 ---
Procedure Note - Detailed Date of Procedure 03/12/22 Pre-op Diagnosis O.A. Both Knees Post-op Diagnosis Same Procedure Performed Cortisone injection left knee, right total knee arthroplasty Surgeon Chacorta Dunlap MD Hinging Machine Operator Galdino Anesthesia General Description of Procedure Patient was brought to the operating room general anesthesia was administered. She received 2 g Ancef weight based vancomycin 1 g of tranexamic acid preoperatively. The left knee was prepped with ChloraPrep and 80 mg of Depo-Medrol 3 cc 1% lidocaine were injected without difficulty into the left knee using sterile technique. The right knee was prepped draped usual fashion. The was exsanguinated tourniquet elevated to 250 mmHg. A 6 in longitudinal incision was made and a vastus medialis splitting approach utilized splitting the vastus medialis at the superior pole of the patella. Infrapatellar and suprapatellar fat pads were excised the quadriceps synovectomy carried out. The patella had normal articular cartilage on it. There is a small osteophyte along the medial margin and inferomedially which was debrided. The a guide chloé was inserted down the femoral canal after aspiration canal contents using the 5 degree valgus cutting bushing 9 mm of bone removed from the distal femur. Next the tibial plateau was cut making the cut perpendicular to the axis of the tibia making a skin cut off the low point of the medial tibial plateau which removed about 8 mm laterally. Meniscal remnants were excised the PCL was recessed. She had no flexion contracture under anesthesia so we did not release posterior capsule. In flexion the knee measured 8 mm medially and 11 mm laterally at 90? of flexion. We set the femoral sizing guide at 3? external rotation which matched Whitesides line. Posterior referencing pinholes were placed. 62.5 was going to notch. We made a cut with a 65 and then placed a small amount of flexion the distal femoral cut so that we could apply the 62.5 cutting guide which was further stabilized with the threaded pins and AP and chamfer cuts were made. Notch was avoided. The trial fit appropriately about 1 mm of lateral overhang flush medially. Tibia was sized to a 67 vanguard with the component placed at proper rotation reference soft the medial 1/3 of the tibial tubercle and the anterior cortex of the tibial metaphysis and 2nd metatarsal ray. This was punched. We trialed with 10 insert and stability was very appropriate 90? with a 10 insert opening 1 mm laterally 2 mm medially at 90?. The knee had a fairly positive bounce. 1-2 mm of medial play and no significant play laterally. Therefore an additional 1 mm bone was removed the distal femur. Minimal posterior femoral osteophytes removed. With trialing the knee now came out to full extension with 1 mm lateral opening 2 mm medial opening and appropriate stability in all positions. Lug holes were drilled. Step drill was used to make multiple perforations in the bone. The 2 batches of methylmethacrylate 1 with gentamicin powder mix immediately applied the 67 tibial component and the 62.5 right CR femoral component vanguard. Cement was applied to the tibia pressurized tibial component fully seated cement applied to the femur femoral component fully seated the brought into extension with an 11 mm 5 in 1 insert for pressurization. Tourniquet was released at approximately 105 minutes. Cement was allowed to harden local anesthetic cocktail was injected hemostasis was achieved trialing showed the 10 was the appropriate choice and had the same findings as described above. This was placed without difficulty 10 locked with a locking pin range of motion stability patellar tracking reconfirmed. Arthrotomy was closed with 2. Vicryl 1. Unidirectional barbed Stratafix suture. The split closed with 1. Vicryl skin closed with 2 subcutaneous Vicryl 3-0 subcuticular Monocryl and glue. 3rd g Ancef 2nd g of tranexamic acid were given
[2022-03-12] MEDS: fentaNYL CITRATE INJ (*CRX) 100 MCG/2 ML VIAL 25 MCG IV PUSH ×6 (16:31→17:27)
[2022-03-12] MEDS: ONDANSETRON INJ 4 MG/2 ML VIAL IV PUSH (16:54)
--- NOTE | 2022-03-12 18:08 | ADMGEN ---
This patient, Delilah Baltazar, was admitted to Medical Room 243-01. Patient/family oriented to hospital policies and general routines including ID bracelet, bed and alarms, visiting hours, pain management, procedures, bathroom and other care routines, personal items, smoking policy, room service/diet, and visiting hours. Information on how to activate the Rapid Response Team has been discussed. Patient/Family are encouraged to report perceived risks to care and to ask questions if they do not understand what they are told or what they should do.
[2022-03-12] MEDS: MORPHINE SULFATE (*CRX) 2 MG/ML INJ IV PUSH ×4 (18:29→22:59)
[2022-03-12] MEDS: SODIUM CHLORIDE 0.9% IV 1,000 ML 125 ML IV CONT (18:29)
[2022-03-12] MEDS: ONDANSETRON HCL ODT 4 MG TABLET PO (19:43)
[2022-03-12] MEDS: diphenhydrAMINE HCl INJ 50 MG/ML VIAL 25 MG IV PUSH (21:17)
[2022-03-12] MEDS: KETOROLAC 15 MG/ML VIAL (*BKC) IV PUSH (21:36)
--- NOTE | 2022-03-12 22:00 | WPDCN ---
Assessment and Plan Assessment and plan (1) Osteoarthritis of both knees: Code(s): M17.0 - Bilateral primary osteoarthritis of knee Status: Acute Assessment and Plan: Postoperative day 0 status post right total knee arthroplasty and left knee cortisone injection. Difficulty disease evening controlling her pain. Morphine seems to be making her more nauseated and is not very effective. She is not having any spasms thus diazepam or other muscle laxatives would likely not be of benefit. At this time we will try Ofirmev 1000 mg x 1. Discontinue morphine and switch to dilaudid which does not seem to cause as much nausea. Monitor on capnography. Wound care and and DVT prophylaxis deferred to Dr. Dunlap. PT/OT consulted. (2) Postoperative nausea: Code(s): R11.0 - Nausea; Z98.890 - Other specified postprocedural states Status: Acute Assessment and Plan: An ongoing issue despite receiving ondansetron and diphenhydramine. Morphine may be contributing to her nausea and does not seem to be helping with her pain much either. Phenergan can be good for opioid induced nausea and vomiting; will try 1 dose this evening to see how she responds. Continue judicious IV fluid rehydration. (3) Hypertension: Code(s): I10 - Essential (primary) hypertension Status: Acute Assessment and Plan: Blood pressures were reviewed and are stable postoperatively. Resume antihypertensives and monitor. (4) Hyperlipidemia: Code(s): E78.5 - Hyperlipidemia, unspecified Status: Acute Assessment and Plan: Continue statin. Check LFTs in a.m. (5) Chronic obstructive pulmonary disease: Code(s): J44.9 - Chronic obstructive pulmonary disease, unspecified Status: Acute Assessment and Plan: No acute issues. Continue inhalers. Plan Thank you for allowing us to participate in this patient's care. Please do not hesitate to contact us with any questions. Supervising physician for this medical consultation is Dr. Dr. Marco Dominguez. HPI Data of Consult Date/Time: 03/12/22 22:00 Requesting Physician: Chacorta Dunlap MD Consult Narrative Reason for consult: Postoperative medical management. Narrative: This is a 71-year-old female with osteoarthritis, hypertension, hyperlipidemia, and GERD whom the hospitalist service has been consulted for help managing her medical conditions postoperatively. She has had ongoing pain in both knees for quite some time. Unfortunately conservative outpatient treatment has not provided her with longstanding benefit and she opted for replacement of the right knee today. She also received a cortisone injection in her left knee. Surgery was performed under general anesthesia with no immediate complications documented an estimated blood loss of 150 mL. She has been having issues with pain control and nausea postoperatively. Morphine and ketorolac have not provided her with much relief, and she still rates her pain 8/10. She describes a constant ache and occasional sharp pain in the right knee up into the right thigh. She is not having any spasms in the near leg. She also reports ongoing nausea despite ondansetron and diphenhydramine. She denies vomiting but reports frequent dry heaves. Review of Systems Review of Systems: Twelve systems were reviewed. No fever, chills, or sweats. No chest pain or shortness of breath. No cough. No paresthesias, skin color, or temperature changes distal to the surgical site. No history of venous thromboembolism. Except as documented, all other systems were reviewed and are negative. [facility] Past Medical History Medical History (Updated 03/12/22 @ 23:34 by Cassandra Trent PA-C) Chronic GERD Chronic obstructive pulmonary disease Hyperlipidemia Hypertension Osteoarthritis Stress incontinence Surgical History Surgical History (Updated 03/12/22 @ 22:50 by Cassandra Trent PA-C) History of colo
--- NOTE | 2022-03-12 23:53 | PC.NURSE ---
Pharmacy notified first dose IV Tylenol due at time of order 2049. No dose received, unable to reach pharmacy prior to 0. First dose will be given at 0000.
--- NOTE | 2022-03-12 23:56 | PC.NURSE ---
Hospitalist ordered dilaudid Q4hr to start after 0100 if pt unable to take PO and having severe pain. Pt placed on capnography per order.
[2022-03-13] VITALS (7 sets, daily range): BP systolic 121–146; BP diastolic 56–60; PULSE 74–98; RESP 20–24; TEMP 36.3–36.9; O2SAT 90–95
[2022-03-13] MEDS: PROMETHAZINE HCL 25 MG/ML AMPUL 12.5 MG IV PUSH
[2022-03-13] MEDS: oxyCODONE HCL (*CRX) 5 MG TAB IR PO ×2 (01:53→05:28)
[2022-03-13] MEDS: oxyCODONE HCL (*CRX) 2.5 MG TAB IR PO ×4 (01:53→13:16)
[2022-03-13 04:35] LABS: Basophils Percent Auto 0.1 % (0.2-1.2); Hematocrit 34.5 % (37.0-47.0); Hemoglobin 11.1 g/dL (12.0-15.0); Immature Granulocyte Absolute 0.05 K/mm3 (0.00-0.031); Immature Granulocyte Percent A 0.5 % (0-0.5); Lymphocytes Absolute Auto 0.64 K/mm3 (0.9-3.2); Lymphocytes Percent Auto 6.5 % (18.3-44.2); Mean Corpuscular HGB Conc 32.2 g/dl (32-36); Mean Corpuscular Hemoglobin 29.8 pg (26-34); Mean Corpuscular Volume 92.5 fl (80-100); Monocytes Absolute Auto 0.4 K/mm3 (0.1-0.6); Monocytes Percent Auto 4.5 % (2.6-8.5); Neutrophils Absolute Auto 8.7 K/mm3 (1.3-6.7); Neutrophils Percent Auto 88.4 % (45.5-73.1); Platelet Count Result 219 k/mm3 (150-375); Red Blood Count 3.73 M/mm3 (4.2-5.4); Red Cell Distribution Width 12.7 % (11.5-14.5); White Blood Count 9.9 K/mm3 (4.5-10.0)
[2022-03-13 04:53] LABS: Alanine Aminotransferase 13 U/L (6-35); Alkaline Phosphatase 60 U/L (38-126); Anion Gap 10 mmol/L (8-16); Aspartate Amino Transferase 26 U/L (14-36); Bilirubin,Total 0.4 mg/dL (0.2-1.3); Blood Urea Nitrogen 13 mg/dL (7-17); Calcium 8.9 mg/dL (8.4-10.2); Carbon Dioxide 27 mmol/L (22-30); Chloride 98 mmol/L (98-107); Estimated CRCL calculation 58 ml/min; Estimated Glomerular Filt Rate > 60; Glucose 137 mg/dL (65-110); Magnesium 1.6 mg/dL (1.6-2.3); Potassium 3.9 mmol/L (3.4-5.0); Sodium 135 mmol/L (137-145)
[2022-03-13] MEDS: ONDANSETRON HCL ODT 4 MG TABLET PO (05:30)
[2022-03-13] MEDS: PANTOPRAZOLE 40 MG TABLET PO (06:40)
--- NOTE | 2022-03-13 07:28 | PM.PNORT ---
Subjective Subjective Date/Time Seen: 03/13/22 07:28 Postop day 1 patient is alert. She was very nauseated when she 1st got the floor yesterday. Most likely from postop anesthesia. She did get 2 small dose of morphine, 2 mg due to increased pain in the knee. Patient did get up to the bedside commode this morning and tolerated this until she got back in the and some continued nausea. Patient is still having nausea at this point. No bouts emesis. Morning labs are noted and are relatively all normal. I did order a dose of Decadron this morning that hopefully will help with pain and nausea for her. She has been getting Zofran. We have ordered a her 2nd dose of vancomycin to 500 rather than a 1000 due to her weight. Her dressing is dry and intact. Minimal swelling in the knee. Neurovascularly she is intact. She is tolerating pain medicine without increased nausea. At this point patient is on 2 L of O2 per nasal cannula and her sats are 92/93. Nursing will work on weaning her off the oxygen this morning. She is a 50 year history of smoking. We will have Physical therapy work with the patient today and see how she does by this afternoon. If she is making steady improvement and is comfortable we plan to discharge the patient home this afternoon. If she continues to have significant symptoms with nausea and intolerance she may need to be kept for another night. Objective Data Vital Signs Vital Signs: Vital Signs - 24 hr 03/12/22 11:10 03/12/22 16:25 03/12/22 16:40 Temperature 37.2 C 36.7 C Pulse Rate 82 98 99 Respiratory Rate 14 14 15 Blood Pressure 161/68 H 141/60 H 147/70 H Pulse Oximetry 96 98 94 Oxygen Delivery Room Air Simple Face Mask Simple Face Mask Oxygen Flow Rate 8 8 03/12/22 16:55 03/12/22 17:10 03/12/22 17:25 Temperature Pulse Rate 92 94 94 Respiratory Rate 18 10 L 16 Blood Pressure 147/68 H 143/70 H 148/68 H Pulse Oximetry 95 94 Oxygen Delivery Nasal Cannula Nasal Cannula Oxygen Flow Rate 2 2 03/12/22 17:40 03/12/22 17:49 03/12/22 18:40 Temperature Pulse Rate 90 89 Respiratory Rate 12 20 Blood Pressure 135/71 140/90 Pulse Oximetry 95 98 Oxygen Delivery Room Air Nasal Cannula Room Air Oxygen Flow Rate 2 08/31/22 18:12 03/12/22 18:36 03/12/22 19:21 Temperature 36.9 C 33.9 C L 36.7 C Pulse Rate 82 90 95 Respiratory Rate 24 H 20 20 Blood Pressure 142/56 H 139/57 L 134/78 Pulse Oximetry 89 L 93 87 L Oxygen Delivery Oxygen Flow Rate 03/12/22 21:18 03/12/22 23:33 03/13/22 00:04 Temperature 36.8 C 36.4 C Pulse Rate 98 95 93 Respiratory Rate 16 12 20 Blood Pressure 147/69 H 146/60 H Pulse Oximetry 90 92 92 Oxygen Delivery Oxygen Flow Rate 03/12/22 23:45 03/13/22 06:42 Temperature 36.9 C Pulse Rate 89 82 Respiratory Rate 18 22 H Blood Pressure 121/56 L Pulse Oximetry 92 91 Oxygen Delivery Nasal Cannula Oxygen Flow Rate 3 Intake/Output Intake/Output: Intake & Output 03/10/22 03/11/22 03/12/22 03/13/22 23:59 23:59 23:59 23:59 Intake Total 1700 1215 Output Total 1800 Balance 1700 -585 Meds/Results Medications: Active Medications Generic Name Dose Route Start Last Admin Trade Name Freq PRN Reason Stop Dose Admin Amlodipine Besylate 5 mg 03/13/22 09:00 Amlodipine Besylate 5 Mg Tablet PO DAILY KRISTEN Apixaban 2.5 mg 03/13/22 09:00 Apixaban 2.5 Mg Tablet PO Q12HR KRISTEN Atorvastatin Calcium 20 mg 03/12/22 21:00 03/12/22 21:31 Atorvastatin 20 Mg Tablet PO Not Given HS KRISTEN Hydromorphone HCl 0.5 mg 03/13/22 01:00 Hydromorphone Hcl Inj (*Crx) 1 Mg/Ml Syr IV PUSH Q4H PRN Breakthrough Pain Rated 7-10 Vancomycin HCl 1,000 mg in 250 mls @ 250 mls/hr 03/12/22 23:00 03/12/22 23:57 Vancomycin 1,000 Mg/D5w 250 Ml IVPB 03/13/22 11:59 Infused Q12H KRISTEN Infusion Cefazolin Sodium 1 gm in 50 mls @ 100 mls/hr 03/12/22 21:00 03/13/22 06:42 Ancef 1 Gm/D5w 50 Ml Pm IVPB 03/13/22
[2022-03-13] MEDS: APIXABAN 2.5 MG TABLET PO (08:16)
[2022-03-13] MEDS: CHOLECALCIFEROL 1,000 UNITS TABLET 2000 UNITS PO (08:16)
[2022-03-13] MEDS: amLODIPine BESYLATE 5 MG TABLET PO (08:16)
[2022-03-13] MEDS: MELOXICAM 7.5 MG TABLET PO (08:16)
[2022-03-13] MEDS: polyethylene glycoL 3350 17 GM POWD.PACK PO (08:17)
[2022-03-13] MEDS: SENNA/DOCUSATE SODIUM TABLET 2 TAB PO (08:17)
--- NOTE | 2022-03-13 08:18 | P.PNAN_ITS ---
Anes - Prog Note Post-Op Date/Time: 03/13/22 08:18 Cardiovascular status: normal Respiratory status: normal Airway patency: baseline Mental status: baseline Post-Op hydration status: normal Vital Signs: Last Vital Signs Temp 36.9 C 03/13/22 06:42 Pulse 82 03/13/22 06:42 Resp 22 H 03/13/22 06:42 BP 121/56 L 03/13/22 06:42 Pulse Ox 91 03/13/22 06:42 O2 Del Method Nasal Cannula 03/12/22 23:45 O2 Flow Rate 3 03/12/22 23:45 Pain Score (VAS): 02/19 I/O: Intake & Output 03/12/22 03/13/22 03/13/22 23:59 07:59 15:59 Intake Total 1650 1215 Output Total 1800 Balance 1650 -585 Laboratory Tests 03/13/22 04:18 03/13/22 04:18 03/12/22 03/13/22 03/13/22 11:39 04:18 04:18 WBC 9.9 RBC 3.73 L Hgb 11.1 L Hct 34.5 L MCV 92.5 MCH 29.8 MCHC 32.2 RDW 12.7 Plt Count 219 MPV 10.0 Immature Gran % (Auto) 0.5 Neut % (Auto) 88.4 H Lymph % (Auto) 6.5 L [place] % (Auto) 4.5 Eos % (Auto) 0.0 Baso % (Auto) 0.1 L Lymph # (Auto) 0.64 L [place] # (Auto) 0.4 Eos # (Auto) 0.0 Baso # (Auto) 0.0 Abs Immat Gran (auto) 0.05 H Absolute Neuts (auto) 8.7 H Absolute Nucleated RBC 0.0 Nucleated RBC % 0.0 Sodium 135 L Potassium 3.9 Chloride 98 Carbon Dioxide 27 Anion Gap 10 BUN 13 D Creatinine 0.60 L Estim Creat Clear Calc 58 Estimated GFR > 60 Glucose 137 H Calcium 8.9 Magnesium 1.6 Total Bilirubin 0.4 Direct Bilirubin 0.0 AST 26 ALT 13 Alkaline Phosphatase 60 Total Protein 6.0 L Albumin 4.0 Blood Type O Positive Antibody Screen Negative Post-procedural complaints: nausea Patient Feedback: Patient satisfied with anesthetic care.
--- NOTE | 2022-03-13 08:27 | PM.DS ---
DS: Admitting Diagnosis Discharge Date 03/13 Admitting Diagnosis right knee DJD DS: Discharge Diagnosis Discharge Diagnosis Plan 71-year-old female in with a right total knee arthroplasty cortisone injection into the left knee on 03/12. Underwent the procedure without complications. She had significant of nausea postoperatively. This started immediately after surgery and continued overnight. No bouts of emesis. She is tolerating pain medicine without increased nausea. She was up to the bedside commode evening surgery and did tolerate this relatively well. Morning postop day 1 she was still nauseated but seem to be improving. Pain was improving. She was able to straight-leg raise the morning of postop day 1. She was on oxygen per nasal cannula still morning of postop day 1. She is a 50 year smoker. She has no shortness of breath. They will wean her off the oxygen throughout the day on postop day 1. She is on Eliquis for DVT prophylaxis she is on Tylenol 650 Q 6 hours and oxycodone 5 mg. She is also on meloxicam 7.5 mg. She is weight-bearing as tolerated. Patient is going to work physical therapy on 03/13 she continues do well throughout the day with planned discharge home Later that day. Patient was strongly advised to keep the leg elevated at home prevent swelling as well as do her exercises on a hourly basis. She is having home health set up to the fact she has no one to drive her to outpatient therapy. She will also go home on Senokot and MiraLax for constipation. Patient was advised any questions or concerns she is to call the office otherwise we will see her at her appointment dates. DS: Summary Hospital Course Hospital Course: Stable Time Spent with Patient Time attestation: Total time spent providing and/or coordinating discharge services: DS: Data Data Completed and Pending Labs on day of discharge: Labs from last 24 hours 03/13/22 03/13/22 03/12/22 04:18 04:18 11:39 WBC 9.9 RBC 3.73 L Hgb 11.1 L Hct 34.5 L MCV 92.5 MCH 29.8 MCHC 32.2 RDW 12.7 Plt Count 219 MPV 10.0 Immature Gran % (Auto) 0.5 Neut % (Auto) 88.4 H Lymph % (Auto) 6.5 L [place] % (Auto) 4.5 Eos % (Auto) 0.0 Baso % (Auto) 0.1 L Lymph # (Auto) 0.64 L [place] # (Auto) 0.4 Eos # (Auto) 0.0 Baso # (Auto) 0.0 Abs Immat Gran (auto) 0.05 H Absolute Neuts (auto) 8.7 H Absolute Nucleated RBC 0.0 Nucleated RBC % 0.0 Sodium 135 L Potassium 3.9 Chloride 98 Carbon Dioxide 27 Anion Gap 10 BUN 13 D Creatinine 0.60 L Estim Creat Clear Calc 58 Estimated GFR > 60 Glucose 137 H Calcium 8.9 Magnesium 1.6 Total Bilirubin 0.4 Direct Bilirubin 0.0 AST 26 ALT 13 Alkaline Phosphatase 60 Total Protein 6.0 L Albumin 4.0 Blood Type O Positive Antibody Screen Negative Discharge Plan Discharge Patient Disposition: Home, Self-Care Discharge Instructions: PATRICE LO M.D [facility], [address] [address] POST-OPERATIVE DISCHARGE INSTRUCTIONS TOTAL KNEE ARTHROPLASTY 1. When resting, lie on back with leg elevated above heart to minimize swelling. Significant swelling could indicate a blood clot and if this occurs call the office (or go to the ER) to have a venous ultrasound. 2. Do exercise 5 times a day. 3. Do not sit with leg down except for meals. 4. Wound Care: Nursing will give additional dressings at discharge. Patient to change dressing at home 1 week from surgery, then maintain until seen in office. 5. May shower with dressing in place. 6. Follow weight bearing status instructions. IMPORTANT: Remember not to sit in the chair for more than 30 minutes at a time. As a rule, during the first 14 days after surgery, only sit in the chair to work on the chair knee bending stretch exercise, for meals or for use of the re
[2022-03-13] MEDS: ACETAMINOPHEN 325 MG TABLET 650 MG PO (11:10)
--- NOTE | 2022-03-13 12:30 | PM.IMPN ---
Progress Note: A&P Assessment and Plan (1) Osteoarthritis of both knees: Code(s): M17.0 - Bilateral primary osteoarthritis of knee Status: Acute Assessment and Plan: POD#1 status post right total knee arthroplasty and left knee cortisone injection. Wound care and and DVT prophylaxis deferred to Dr. Dunlap. PT/OT consulted. Pain control with oral medications, wean IV narcotics. (2) Postoperative nausea: Code(s): R11.0 - Nausea; Z98.890 - Other specified postprocedural states Status: Acute Assessment and Plan: Improving. No emesis. Given dexamethasone IV x1 by Ortho this am. PRN IV ondansetron Continue judicious IV fluid rehydration. Bowel regimen. (3) Postoperative hypoxia: Code(s): R09.02 - Hypoxemia; Z98.890 - Other specified postprocedural states Status: Acute Assessment and Plan: Likely secondary to IV narcotics and anesthesia overnight. Wean O2 to keep sats>92%. Push incentive spirometry use Q1-2 hour while awake. IS 1250 mL. (4) Hypertension: Code(s): I10 - Essential (primary) hypertension Status: Chronic Assessment and Plan: Blood pressures were reviewed and mildly elevated, but stable. Continue antihypertensives at home dose and monitor. (5) Hyperlipidemia: Code(s): E78.5 - Hyperlipidemia, unspecified Status: Chronic Assessment and Plan: Continue statin. LFTs within normal limits. (6) Chronic obstructive pulmonary disease: Code(s): J44.9 - Chronic obstructive pulmonary disease, unspecified Status: Chronic Assessment and Plan: Not in acute exacerbation. Continue maintenance inhalers. Plan Thank you for allowing us to participate in this patient's care. Please do not hesitate to contact us with any questions. Time Spent With Patient Time with patient: 15 - 25 minutes Subjective Date/time seen: 03/13/22 12:30 Delilah Baltazar is a 71-year-old female with osteoarthritis, hypertension, hyperlipidemia, and GERD who presented to the hospital for right TKA. Patient is POD#1. She reports mild nausea, but no emesis. She is tolerating her diet and passing flatus. Nursing reports the patient had multiple doses of morphine yesterday, requiring oxygen and capnography monitoring overnight. She denies c/o chest pain, shortness of breath or dyspnea with exertion. Nursing is weaning her O2. Review of Systems Review of Systems: All systems reviewed & are unremarkable except as noted in HPI and below Exam Narrative: General: No acute distress. Sitting up in the chair. HEENT: PERRL, EOMI. Sclera anicteric. Moist mucous membranes. Neck: Supple. Respiratory: Lungs are clear to auscultation bilaterally. RR even and unlabored. Speaking in full sentences. No accessory muscle use. Cardiovascular: Regular rate and rhythm with S1-S2. No murmurs, gallops or rubs. Gastrointestinal: Abdomen soft, nontender, and nondistended with positive bowel sounds. No guarding. Skin: Warm and dry. No rash or lesions on limited exam. Right knee aquacel dressing clean, dry and intact. Surrounding skin with mild edema, no erythema or discharge. Extremities: No cyanosis, clubbing, or edema. Radial and pedal pulses intact. Neurovascularly intact distal to the surgical site. Neurological: Alert. Oriented x4. Cranial nerves 2-12 grossly intact. No gross focal deficits to casual conversation. Psychiatric: Pleasant and cooperative with appropriate mood and affect. Objective Data Vital Signs Vital Signs: Vital Signs - 24 hr 03/12/22 16:25 03/12/22 16:40 03/12/22 16:55 Temperature 98.1 F Pulse Rate 98 99 92 Respiratory Rate 14 15 18 Blood Pressure 141/60 H 147/70 H 147/68 H Pulse Oximetry 98 94 Oxygen Delivery Simple Face Mask Simple Face Mask Oxygen Flow Rate 8 8 03/12/22 17:10 03/12/22 17:25 03/12/22 17:40 Temperature Pulse Rate 94 94 90 Respiratory Rate 10 L
== END 2022-03-13 14:25 | disposition home health service (06) ==
LOC: ANHSURGERY 09:53 → ANH2MED 17:53
PROVIDERS: Physician Assistant; PCP Internal Medicine; Visit Provider Orthopaedic Surgery
PROC: (CPT 27447; principal; 2022-03-12 12:00)
DX: M17.0 Bilateral primary osteoarthritis of knee (principal); R11.0 Nausea; I10 Essential (primary) hypertension; E78.5 Hyperlipidemia, unspecified; J44.9 Chronic obstructive pulmonary disease, unspecified; Z87.891 Personal history of nicotine dependence; Z79.51 Long term (current) use of inhaled steroids
CPT/HCPCS: 27447; 20610; 36415; 73560; 80048; 80076; 80307; 82040; 83036; 83735; 85025; 86850; 86900; 86901; 87070; 97110; 97161; 97165; 97530; 97535; A9270; C1713; C1776; J0131; J0171; J0690; J1040; J1100; J1170; J1200; J1885; J2270; J2370; J2405; J2550; J2704; J2795; J3010; J3370; J7030; J7120

== ENCOUNTER 2022-03-18 15:36 | Observation (INO) | payer MEDICARE, SELFPAY ==
--- NOTE | ~2022-03-18 | US_ITS ---
EXAMINATION: US venous doppler LE RT DATE: 03/18/2022 16:45 INDICATION: Right lower limb pain TECHNIQUE: Trimble scale images without and with compression and Doppler images of the right lower extre mity veins were obtained. COMPARISON: None FINDINGS: The right common femoral vein, profunda femoral vein, femoral vein, popliteal vein, peronea l trunk, posterior tibial veins, and greater saphenous vein are patent. IMPRESSION: 1. Patent right lower extremity veins. No evidence of deep venous thrombosis. Reviewed, dictated and finalized at location B.
--- NOTE | ~2022-03-18 | CT_ITS ---
EXAMINATION: CT abdomen pelvis w con DATE: 03/18/2022 18:14 INDICATION: Right lower quadrant abdominal pain. Right groin pain. TECHNIQUE: Computed tomography (CT) of the abdomen and pelvis was performed with 100 mL Omnipaque 350 intravenous contrast. Automated exposure control and iterative reconstruction technique were employe d. The dose-length product was 217.15 mGy-cm. COMPARISON: None. FINDINGS: The visualized portions of the lung bases demonstrate emphysema and mild atelectasis. No pl eural effusion. The heart size is normal. There are coronary artery calcifications. No pericardial ef fusion. There are cysts in the liver measuring up to 21 mm. The gallbladder is normal. Calcifications in the spleen are consistent with old granulomatous disease. The pancreas, adrenal glands, and kidne ys are normal. There is a 3.2 cm fusiform aneurysm of infrarenal aorta. There is diverticulosis of th e colon without evidence of diverticulitis. There is a large volume of stool in the colon. The append ix is normal. There is a diverticulum of the third portion of the duodenum. There are no pathological ly enlarged lymph nodes. There is no free intraperitoneal fluid. There is severe stenosis of right co mmon femoral artery. There is moderate stenosis of right common iliac artery. There is lumbar dextros coliosis and severe spondylosis. There is mild osteoarthritis of the hips. IMPRESSION: 1. 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 2. Severe stenosis of right common femoral artery and moderate stenosis of right common iliac artery. 3. Mild osteoarthritis of the hips. Reviewed, dictated and finalized at location E. IMPRESSION: 1. 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 2. Severe stenosis of right common femoral artery and moderate stenosis of righ t common iliac artery. 3. Mild osteoarthritis of the hips.
--- NOTE | ~2022-03-18 | US_ITS ---
EXAMINATION: US art doppler w press LE DATE: 03/19/2022 10:34 INDICATION: Peripheral arterial disease. TECHNIQUE: Segmental pressures and plethysmographic and Doppler waveforms of the brachial and lower e xtremity arteries were obtained. COMPARISON: None. FINDINGS: Right and left brachial artery pressures of 165 mm Hg and 171 mm Hg, respectively, are concordant (no rmal difference <= 30 mmHg). The thigh and below-knee pressures were not measured due to recent knee surgery. The right ankle-brac hial index (ASIA) is 0.65 (normal >= 0.9-1.0). The right great toe-brachial index (TBI) is 0.26 (alison l >= 0.65). Arterial Doppler waveforms are biphasic from the common femoral artery to the ankle. The left ASIA is 1.06. The left TBI is 0.25. Arterial Doppler waveforms are biphasic from common femor al artery to the ankle. IMPRESSION: 1. Moderately decreased right ASIA, consistent with right-sided arterial occlusive disease. 2. Decreased left TBI and normal left ASIA, consistent with left-sided arterial occlusive disease. Not e that ASIA may be overestimated if arteries are calcified. Reviewed, dictated and finalized at location A. IMPRESSION: 1. Moderately decreased right ASIA, consistent with right-sided arterial occlusi ve disease. 2. Decreased left TBI and normal left ASIA, consistent with left-sided arterial occlusive disease. Note that ASIA may be overestimated if arteries are calcified .
--- NOTE | ~2022-03-18 | XR_ITS ---
EXAMINATION: XR knee RT 3V DATE: 03/18/2022 19:58 INDICATION: Right lower limb pain. TECHNIQUE: 3 views of right knee were obtained. COMPARISON: Right knee radiographs 03/12/2022 FINDINGS: There is a total right knee arthroplasty without patellar resurfacing in near-anatomic alig nment. No periprosthetic lucency to suggest loosening or infection. There is an osteophyte of the pat lary. There is soft tissue gas, consistent with recent surgery. There is a small knee joint effusion versus synovitis. IMPRESSION: 1. Total right knee arthroplasty in near-anatomic alignment. 2. Small right knee joint effusion versus synovitis. Reviewed, dictated and finalized at location E.
--- NOTE | ~2022-03-18 | XR_ITS ---
EXAMINATION: XR hip RT 2V w AP pelvis INDICATION: Right hip pain TECHNIQUE: AP view the pelvis and two views of the right hip are obtained. COMPARISON: CT from today FINDINGS: Bone alignment is normal. There is no fracture. Contrast from earlier CT partially opacifie s the urinary tract. There is severe lumbar spondylosis. IMPRESSION: 1. No acute osseous abnormality. Reviewed, dictated and finalized at location F.
--- NOTE | ~2022-03-18 | MR_ITS ---
EXAMINATION: MR hip RT wo/w con DATE: 03/19/2022 09:54 INDICATION: Right hip pain TECHNIQUE: Magnetic resonance imaging (MRI) of the right hip was performed without and with 10 mL Mu ltihance intravenous contrast. Sequences included full-field axial PD-weighted FS FSE and T1-weighted FSE, coronal of the pelvis with PD-weighted FS FSE, T2-weighted FSE and T1-weighted FSE, small field of view of the right hip with axial PD-weighted FS FSE, sagittal PD-weighted FS FSE, coronal PD-weig hted FS FSE and coronal T2 weighted FSE. Radial T1-weighted FGR oriented orthogonal to the acetabula r rim were obtained for evaluation of the labrum. Postcontrast large [id number] axial T1-weighted FS FSE of the pelvis were also obtained. COMPARISON: None FINDINGS: Bones/labrum/cartilage: Lumbar dextroscoliosis with severe multilevel spondylosis. Normal alignment at the bilateral hips. No fracture, avascular necrosis or pathologic marrow replacing process. Mild right hip osteoarthritis w ith partial thickness cartilage loss resulting in mild nonuniform joint space narrowing at the lead mechanic ior and posterosuperior aspect of the joint space. There is a tear of the anterosuperior to superolat eral right acetabular labrum. Similar tear is suggested at the contralateral left hip which is not di agnostically evaluated on the larger field of view images. Fluid: Relative symmetric small bilateral hip joint effusions. Soft tissues: Normal and symmetric muscle bulk and signal in the pelvis and visualized proximal thighs. The iliopso as, gluteal and proximal hamstring tendons are normal. Marked sigmoid diverticulosis without adjacent inflammatory change to suggest diverticulitis. Limited evaluation of visceral organs of the pelvis i s unremarkable. No pathologically enlarged pelvic/inguinal lymphadenopathy. IMPRESSION: 1. Mild right hip osteoarthritis with anterosuperior to superolateral labral tear. 2. Lumbar dextroscoliosis with severe spondylosis. 3. Prominent sigmoid diverticulosis. Reviewed, dictated and finalized at location A. IMPRESSION: 1. Mild right hip osteoarthritis with anterosuperior to superolateral labral te ar. 2. Lumbar dextroscoliosis with severe spondylosis. 3. Prominent sigmoid diverticulosis.
[2022-03-18 15:42] VITALS: BP 134/60; PULSE 99; RESP 18; TEMP 36.8; O2SAT 98
[2022-03-18 16:06] LABS: Basophils Percent Auto 0.7 % (0.2-1.2); Eosinophils Absolute Auto 0.1 K/mm3 (0-0.3); Eosinophils Percent Auto 2.2 % (0-4.4); Hematocrit 32.6 % (37.0-47.0); Hemoglobin 10.6 g/dL (12.0-15.0); Immature Granulocyte Absolute 0.16 K/mm3 (0.00-0.031); Immature Granulocyte Percent A 2.7 % (0-0.5); Lymphocytes Absolute Auto 1.33 K/mm3 (0.9-3.2); Lymphocytes Percent Auto 22.5 % (18.3-44.2); Mean Corpuscular HGB Conc 32.5 g/dl (32-36); Mean Corpuscular Hemoglobin 29.9 pg (26-34); Mean Corpuscular Volume 91.8 fl (80-100); Mean Platelet Volume 9.8 fl (7.4-10.4); Monocytes Percent Auto 16.8 % (2.6-8.5); Neutrophils Absolute Auto 3.3 K/mm3 (1.3-6.7); Neutrophils Percent Auto 55.1 % (45.5-73.1); Platelet Count Result 290 k/mm3 (150-375); Red Blood Count 3.55 M/mm3 (4.2-5.4); Red Cell Distribution Width 12.6 % (11.5-14.5); White Blood Count 5.9 K/mm3 (4.5-10.0)
[2022-03-18 16:16] LABS: INR 1.1; Prothrombin Time 13.3 Seconds (11.1-14.7)
[2022-03-18 16:17] LABS: Alanine Aminotransferase 16 U/L (6-35); Albumin Level 4.2 g/dL (3.5-5.1); Alkaline Phosphatase 66 U/L (38-126); Anion Gap 17 mmol/L (8-16); Aspartate Amino Transferase 28 U/L (14-36); Bilirubin,Total 1.4 mg/dL (0.2-1.3); Blood Urea Nitrogen 15 mg/dL (7-17); Calcium 9.2 mg/dL (8.4-10.2); Carbon Dioxide 29 mmol/L (22-30); Chloride 89 mmol/L (98-107); Estimated CRCL calculation 58 ml/min; Estimated Glomerular Filt Rate > 60; Glucose 107 mg/dL (65-110); Potassium 3.9 mmol/L (3.4-5.0); Sodium 135 mmol/L (137-145)
--- NOTE | 2022-03-18 17:49 | ED.LOWEXIN ---
HPI - Extremity Injury (Lower) General Chief Complaint: Extremity Injury, Lower <Natalie Vicente PA-C - Last Filed: 03/18/22 17:55> Stated Complaint: pain in groin post op knee <RENE Oakley Last Filed: 03/18/22 17:55> Time Seen by Provider: 03/18/22 17:18 <RENE Oakley Last Filed: 03/18/22 17:55> Source: patient <RENE Oakley Last Filed: 03/18/22 17:55> Mode of arrival: wheelchair <RENE Oakley Last Filed: 03/18/22 17:55> Limitations: no limitations <RENE Oakley Last Filed: 03/18/22 17:55> History of Present Illness HPI Narrative: This is a 71 year old female that presents to the ER for right hip pain. Present over the last couple of days. The pain is sharp and constant in nature. Worse with movement. Relieved with rest. Reports recent right knee total arthroplasty. She was sent to the ER for rule out DVT. Does report bruising and swelling to the right lower leg. Is currently taking Eliquis for DVT prophylaxis. Denies fever, erythema or warmth of the leg. <Natalie Vicente PA-C - Last Filed: 03/18/22 17:55> Related Data Home Medications: Home Medications Medication Instructions Recorded Confirmed cholecalciferol (vitamin D3) 50 50 mcg PO DAILY 02/24/22 02/28/22 mcg (2,000 unit) tablet <RENE Oakley Last Filed: 03/18/22 17:55> Allergies/Adverse Reactions: Allergies Allergy/AdvReac Type Severity Reaction Status Date / Time celecoxib Allergy Severe Hives Verified 03/12/22 11:14 levofloxacin Allergy Intermediate Nausea Verified 03/12/22 11:14 Sulfa (Sulfonamide Allergy Intermediate Nausea Verified 03/12/22 11:14 Antibiotics) <RENE Oakley Last Filed: 03/18/22 17:55> Review of Systems Review of Systems: CONSTITUTIONAL: Denies fever GASTROINTESTINAL: Reports nausea. Denies abdominal pain, vomiting, or diarrhea. GENITOURINARY: Denies dysuria or hematuria. SKIN: Denies rash MUSCULOSKELETAL: Reports joint pain, and myalgia. NEUROLOGIC: Denies numbness <Natalie Vicente PA-C - Last Filed: 03/18/22 17:55> All systems reviewed & are unremarkable except as noted in HPI and below <Natalie Vicente PA-C - Last Filed: 03/18/22 17:55> [facility] Past Medical History Medical History: Medical History (Updated 03/13/22 @ 13:37 by Trupti Kraft, LEAD PROCESS ENGINEER) Chronic GERD Chronic obstructive pulmonary disease Hyperlipidemia Hypertension Osteoarthritis Stress incontinence <Natalie Vicente PA-C - Last Filed: 03/18/22 17:55> Surgical History Surgical History: Surgical History (Updated 03/12/22 @ 22:50 by Cassandra Trent PA-C) History of colonoscopy with polypectomy History of tonsillectomy <Natalie Vicente PA-C - Last Filed: 03/18/22 17:55> Family History Family History: Family History Mother Carcinoma of colon Father Carcinoma of colon <Natalie Vicente PA-C - Last Filed: 03/18/22 17:55> Social History Social History: Social History (Updated 03/12/22 @ 22:51 by Cassandra Trent PA-C) Social History: Surrogate medical decision maker: Cristine Baltazar, daughter. Code status: Full code. Smoking packs per day: 0.5 Smoking cigarettes per day: 10.0 Years smoked: 50 Smoking pack-years: 25.00 Smoking status: Former smoker Tobacco type: cigarettes Second hand tobacco smoke exposure: No Alcohol intake: never Substance use: never Substance use type: does not use Additional living arrangements comments: The patient lives in her own home in [place]. in June 2021. Additional occupation/education comments: Retired. Spiritual care concerns: No <Natalie Vicente PA-C - Last Filed: 03/18/22 17:55> Exam Narrative: GENERAL: Well-appearing, well-nourished, and in no acute distress. HEAD: Normocephalic, atraumatic. EYES: EOMI. CHEST: Clear to au
[2022-03-18] MEDS: MORPHINE SULFATE (*CRX) 4 MG/ML INJ IV PUSH (17:56)
[2022-03-18] MEDS: ONDANSETRON INJ 4 MG/2 ML VIAL IV PUSH (17:56)
--- NOTE | 2022-03-18 19:29 | PC.NURSE ---
1899 Assumed pt care from ROSALIO Martin
[2022-03-18 19:35] LABS: Appearance Urine Clear (Clear); Bilirubin Urine Negative (Negative); Color Urine Yellow (Yellow); Glucose Urine UA Negative (Negative); Ketones Urine 2+ mg/dL (Negative); Leukocyte Esterase Ur Negative LEU/UL (Negative); Nitrate Urine Negative (Negative); Protein Urine Negative (Negative); Specific Grav Ur <= 1.005 (1.001-1.035); Urobilinogen Urine 0.2 mg/dL (<2.0); pH Urine 6.5 (5.0-9.0)
[2022-03-18] MEDS: KETOROLAC 15 MG/ML VIAL (*BKC) IV PUSH (19:45)
[2022-03-18 19:56] LABS: Add Urine Microscopic? YES; Blood Urine Trace-Intact (Negative)
[2022-03-18 19:58] LABS: RBC Urine 0-2 /hpf (0-2)
[2022-03-18 19:59] LABS: Squamous Epithelial Cell Urine Few /hpf (Few); WBC Urine None seen /hpf
[2022-03-18 20:00] LABS: Bacteria Urine None seen /hpf
--- NOTE | 2022-03-18 21:40 | PM.IMHP ---
H&P: HPI History of Present Illness Date/Time: 03/18/22 21:40 Chief Complaint: Right femoral pain Narrative: This is a 71-year-old female patient who underwent a right total knee arthroplasty per Dr. Dunlap on 03/12/2022. The patient has been on pain medication since she went home which is making her very nauseated. She has been on Eliquis for DVT prophylaxis and taking oxycodone as well as meloxicam. She does have a large hematoma around the left leg extending to the lower extremity. She is also complaining of some constipation and has not had a bowel movement for at least 2 days. Her pain is worse with movement and is constant. She has not had any relief from the right femoral pain. The hip pelvis x-ray was read as no acute osseous abnormality. Knee x-ray was read as total right knee arthroplasty in near anatomic alignment. Small right knee joint effusion versus synovitis. Abdominal pelvis CT was read as the following. 1. 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 2. Severe stenosis of right common femoral artery and moderate stenosis of right common iliac artery. 3. Mild osteoarthritis of the hips. Venous Dopplers were performed which shows a patent right lower extremity pain no evidence of deep vein thrombosis. ED note from conversation with vascular surgeon per meri Vicente in [place] (Spoke with about patient and workup, vascular surgery at [facility].? Patient is appropriate for outpatient evaluation for findings on CT scan.? She may call to make an appointment . Spoke with Dr. Dunlap about patient and workup who recommends admission for intractable groin pain.) The patient was given morphine, Zofran, Toradol and Tylenol without any relief of the right foot more pain. The patient is being admitted for observation status on the date of service of 03/18/2022. Review of Systems Review of Systems: See HPI All systems reviewed & are unremarkable except as noted in HPI and below Constitutional: Constitutional: Reports as per HPI and Reports no additional constitutional complaints Eyes: Eyes: Reports as per HPI and Reports no additional eye complaints ENT: Reports system reviewed and no additional complaints, except as documented and Reports Normal hearing present Cardiovascular: Cardiovascular: Reports no additional cardiovascular complaints Respiratory: Respiratory: Reports no additional respiratory complaints and Reports no additional respiratory complaints Gastrointestinal: Gastrointestinal: Reports as per HPI and Reports no additional gastrointestinal complaints Musculoskeletal: Musculoskeletal: Reports no additional musculoskeletal complaints Integumentary/Breasts: Skin/Breast: Reports system reviewed and no additional complaints, except as docu and Reports as per HPI Neurologic: Reports system reviewed and no additional complaints, except as documented, Reports as per HPI and Reports Normal hearing present Psychiatric: Psychiatric: Reports no additional psychiatric complaints and Reports as per HPI Endocrine: Endocrine: Reports no additional endocrine complaints Hematologic/Lymphatic: Hematologic/Lymphatic: Reports no additional hematologic/lymphatic complaints Allergic/Immunologic: Allergic/Immunologic: Reports no additional allergic/immunologic complaints [facility] Past Medical History Medical History (Updated 03/18/22 @ 22:26 by Tiffany Angulo NP) Atypical pigmented lesion Chronic GERD Chronic obstructive pulmonary disease Encounter for colonoscopy in patient with family history of colon cancer Establishing care with new doctor, encounter for History of tobacco use Hyperlipidemia Hypertension Osteoarthritis Screening mammogram, encounter for Tobacco use disorder Surgical History Surgical History (Updated 03/18/22 @ 22:18 by Tiffany Angulo NP) History of colonoscopy with polypectomy History of tonsillectomy S/P total knee arthroplasty Right knee 03/12/2022 Family History
[2022-03-18 22:33] VITALS: BP 115/52; PULSE 89; RESP 16; TEMP 37; O2SAT 97
[2022-03-18 22:45] VITALS: BP 129/61; PULSE 92; RESP 22; TEMP 36.6; O2SAT 94; BMI 22.4
[2022-03-18 22:55] VITALS: BP 129/61; PULSE 92; RESP 22; TEMP 36.6; O2SAT 94
[2022-03-18] MEDS: HYDROmorphone HCL INJ (*CRX) 1 MG/ML SYR 0.5 MG IV PUSH (23:07)
--- NOTE | 2022-03-19 00:02 | PC.NURSE ---
This patient, Delilah Baltazar, was admitted to Medical Room 347-01. Patient/family oriented to hospital policies and general routines including ID bracelet, bed and alarms, visiting hours, pain management, procedures, bathroom and other care routines, personal items, smoking policy, room service/diet, and visiting hours. Information on how to activate the Rapid Response Team has been discussed. Patient/Family are encouraged to report perceived risks to care and to ask questions if they do not understand what they are told or what they should do.
[2022-03-19] MEDS: HYDROmorphone HCL INJ (*CRX) 1 MG/ML SYR 0.5 MG IV PUSH ×6 (03:13→23:04)
[2022-03-19] MEDS: APIXABAN 2.5 MG TABLET PO ×3 (03:17→20:27)
[2022-03-19 04:18] VITALS: BP 126/53; PULSE 89; RESP 16; TEMP 36.4; O2SAT 92
[2022-03-19 05:30] LABS: Basophils Absolute Auto 0.1 K/mm3 (0.0-0.1); Basophils Percent Auto 1.2 % (0.2-1.2); Eosinophils Absolute Auto 0.2 K/mm3 (0-0.3); Eosinophils Percent Auto 2.6 % (0-4.4); Hematocrit 29.8 % (37.0-47.0); Hemoglobin 9.8 g/dL (12.0-15.0); Immature Granulocyte Absolute 0.13 K/mm3 (0.00-0.031); Immature Granulocyte Percent A 2.1 % (0-0.5); Lymphocytes Absolute Auto 1.72 K/mm3 (0.9-3.2); Lymphocytes Percent Auto 28.4 % (18.3-44.2); Mean Corpuscular HGB Conc 32.9 g/dl (32-36); Mean Corpuscular Hemoglobin 29.8 pg (26-34); Mean Corpuscular Volume 90.6 fl (80-100); Mean Platelet Volume 9.7 fl (7.4-10.4); Monocytes Absolute Auto 1.1 K/mm3 (0.1-0.6); Monocytes Percent Auto 17.8 % (2.6-8.5); Neutrophils Absolute Auto 2.9 K/mm3 (1.3-6.7); Neutrophils Percent Auto 47.9 % (45.5-73.1); Platelet Count Result 289 k/mm3 (150-375); Red Blood Count 3.29 M/mm3 (4.2-5.4); Red Cell Distribution Width 12.6 % (11.5-14.5); White Blood Count 6.1 K/mm3 (4.5-10.0)
[2022-03-19 05:42] LABS: Alanine Aminotransferase 13 U/L (6-35); Albumin Level 3.7 g/dL (3.5-5.1); Alkaline Phosphatase 59 U/L (38-126); Anion Gap 10 mmol/L (8-16); Aspartate Amino Transferase 23 U/L (14-36); Bilirubin,Total 1.3 mg/dL (0.2-1.3); Blood Urea Nitrogen 17 mg/dL (7-17); Carbon Dioxide 27 mmol/L (22-30); Chloride 96 mmol/L (98-107); Estimated CRCL calculation 68 ml/min; Estimated Glomerular Filt Rate > 60; Glucose 86 mg/dL (65-110); Phosphorus 4.3 mg/dL (2.5-4.5); Potassium 3.1 mmol/L (3.4-5.0); Sodium 133 mmol/L (137-145)
[2022-03-19 05:43] LABS: Lactic Acid Reflex 0.7 mmol/L (0.7-2.0)
[2022-03-19] MEDS: ONDANSETRON INJ 4 MG/2 ML VIAL IV PUSH (08:25)
[2022-03-19] MEDS: polyethylene glycoL 3350 17 GM POWD.PACK PO (08:31)
[2022-03-19] MEDS: amLODIPine BESYLATE 5 MG TABLET PO (08:32)
[2022-03-19] MEDS: lisinopriL 20 MG TABLET PO (08:32)
[2022-03-19] MEDS: MELOXICAM 7.5 MG TABLET PO (08:32)
[2022-03-19] MEDS: SENNA/DOCUSATE SODIUM TABLET 2 TAB PO ×2 (08:32→20:27)
[2022-03-19] MEDS: CHOLECALCIFEROL 1,000 UNITS TABLET 2000 UNITS PO (08:33)
[2022-03-19] MEDS: ATORVASTATIN 20 MG TABLET PO (08:33)
[2022-03-19] MEDS: POTASSIUM CHLORIDE 20 MEQ PACKET (FOR LIQUID) 40 MEQ PO (08:43)
[2022-03-19] MEDS: FAMOTIDINE 20 MG/2 ML VIAL IV PUSH ×2 (08:45→16:57)
[2022-03-19] MEDS: UMECLIDINIUM/VILANTEROL 62.5-25 MCG ELLIPTA 1 PUFF INHALATION (11:03)
--- NOTE | 2022-03-19 11:24 | PM.CNOR ---
Assessment and Plan Assessment and plan (1) Intractable pain: Code(s): R52 - Pain, unspecified Status: Acute Plan 71-year-old female who appears to have possible diverticulitis at this. After consult General surgery for evaluation and treatment options. She may be developing an ileus as well following surgery. She has been getting the Senokot MiraLax this morning. We limit narcotics at this point. Her knee is and appears to be healing uneventfully. The ecchymosis she has on the leg dissipate time. Her hip has good range of motion any real discomfort in the MRI scan was equivocal. Since being home patient has very limited food intake, her protein was low on admission. She may need some supplemental treatments depending on general surgery's recommendation for treatment. Patient is Eliquis at this. History of Present Illness HPI Consult date: 03/19/22 Chief complaint: Intractable Right Groin Pain Narrative: 71-year-old female who underwent right total knee arthroplasty 1 week ago. Patient was having quite a bit and nausea immediately following surgery as well as into postop day 1. No bouts of emesis. She did feel comfortable and wanted to go home following day /. She did go home with Senokot MiraLax for constipation. We also gave her Zofran to help with the nausea. Patient states at that time she had a very sensitive stomach to most medications. She was taking oxycodone 2.5 mg. She was also taking Tylenol every 6 hours. I talked with the patient on the phone her Thursday following day she was still having nausea as well as a lot of stomach gas. She states she was belching quite a bit. She started [id number] Pepcid twice a day as well. She was still having nausea. We switched her pain medication to hydrocodone instead of oxycodone which typically has less issues for nausea. She will remain on Zofran. I again talked to the patient Saturday 03/17. She was still having the nausea. Over the phone she states she was having left-sided lower quadrant pain. Apparently she missed spoke. She has been having right-sided lower quadrant pain has been very painful for. She continued to have the nausea. Symptoms got worse and she came to emergency night was admitted. They did do a CT scan her abdomen which showed possible diverticulitis. Appendix looks in stated on report. Overall she states her knee is doing well she is not having much pain in regard to the knee. MRI scan was done the right hip today which showed no significant arthritic changes of the right hip. It did show again diverticulitis in the sigmoid. Patient states on Thursday she 2 very loose bowel movements at home and stop taking the Senokot MiraLax at that point because she was concerned she going to continue with having loose stools being on the medicine. She has not had a bowel movement since that time. [facility] Past Medical History Medical History (Updated 03/18/22 @ 22:26 by Tiffany Angulo NP) Atypical pigmented lesion Chronic GERD Chronic obstructive pulmonary disease Encounter for colonoscopy in patient with family history of colon cancer Establishing care with new doctor, encounter for History of tobacco use Hyperlipidemia Hypertension Osteoarthritis Screening mammogram, encounter for Tobacco use disorder Surgical History Surgical History (Updated 03/18/22 @ 22:18 by Tiffany Angulo NP) History of colonoscopy with polypectomy History of tonsillectomy S/P total knee arthroplasty Right knee 03/12/2022 Family History Family History Mother Carcinoma of colon Father Carcinoma of colon Social History Social History (Updated 03/18/22 @ 22:20 by Tiffany Angulo NP) Social History: 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 She is a former smoker and only has 1 child. She is . She denies any alcohol marijuana or illicit drug Surrogate medical de
--- NOTE | 2022-03-19 12:43 | PM.CNGS ---
Assessment and Plan Assessment and plan (1) Intractable pain: Code(s): R52 - Pain, unspecified Status: Acute Assessment and Plan: Patient having RLQ abdominal pain and right groin pain. No evidence of acute appendicitis or any other acute surgical issues on imaging. Her white blood cell count is normal and she is afebrile. She appears to have a large amount of stool in the colon that may be contributing to her pain and nausea. Will additionally give her 1/2 bottle of magnesium citrate to treat her constipation. History of Present Illness Consult details Consult date: 03/19/22 [facility] Past Medical History Medical History (Updated 03/18/22 @ 22:26 by Tiffany Angulo NP) Atypical pigmented lesion Chronic GERD Chronic obstructive pulmonary disease Encounter for colonoscopy in patient with family history of colon cancer Establishing care with new doctor, encounter for History of tobacco use Hyperlipidemia Hypertension Osteoarthritis Screening mammogram, encounter for Tobacco use disorder Surgical History Surgical History (Updated 03/18/22 @ 22:18 by Tiffany Angulo NP) History of colonoscopy with polypectomy History of tonsillectomy S/P total knee arthroplasty Right knee 03/12/2022 Family History Family History Mother Carcinoma of colon Father Carcinoma of colon Social History Social History (Updated 03/18/22 @ 22:20 by Tiffany Angulo NP) Social History: 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 She is a former smoker and only has 1 child. She is . She denies any alcohol marijuana or illicit drug Surrogate medical decision maker: Cristine Baltazar, daughter. Code status: Full code. Smoking packs per day: 1 Smoking cigarettes per day: 20.0 Years smoked: 40 Smoking pack-years: 40.00 Smoking status: Former smoker Tobacco type: cigarettes Second hand tobacco smoke exposure: No Alcohol intake: never Substance use: never Substance use type: does not use Additional living arrangements comments: The patient lives in her own home in [place]. in June 2021. Additional occupation/education comments: Retired. Spiritual care concerns: No Meds Home Medications and Allergies Home Medications Medication Instructions Recorded Confirmed Type amlodipine 5 mg tablet 5 mg PO DAILY #90 tabs 09/30/21 03/18/22 Rx pantoprazole 40 mg tablet,delayed 40 mg PO DAILY 90 days #90 tabs 09/30/21 03/18/22 Rx release tiotropium 2.5 mcg-olodaterol 2.5 2 puff inhalation DAILY #4 grams 09/30/21 03/18/22 Rx mcg/actuation mist for inhalation (Stiolto Respimat) atorvastatin 20 mg tablet 20 mg PO DAILY 90 days #90 tabs 10/15/21 03/18/22 Rx perindopril erbumine 8 mg tablet 8 mg PO DAILY 90 days #90 tabs 11/18/21 03/18/22 Rx cholecalciferol (vitamin D3) 50 50 mcg PO DAILY 02/24/22 03/18/22 History mcg (2,000 unit) tablet apixaban 2.5 mg tablet (Eliquis) 2.5 mg PO Q12HR #27 tabs 03/13/22 03/18/22 Rx polyethylene glycol 3350 17 gram 17 g PO QAM #30 ea 03/13/22 03/18/22 Rx oral powder packet (Miralax) sennosides 8.6 mg-docusate sodium 2 tab PO BID #6 tabs 03/13/22 03/18/22 Rx 50 mg tablet (Senokot-S) acetaminophen 325 mg tablet (Mapap 650 mg PO Q6HR PRN Pain 03/18/22 03/18/22 History (acetaminophen)) hydrocodone 7.5 mg-acetaminophen 1 tablet PO DIRECTED PRN Pain 03/18/22 03/18/22 History 325 mg tablet meloxicam 7.5 mg tablet 7.5 mg PO QAM 03/18/22 03/18/22 History Allergies Allergy/AdvReac Type Severity Reaction Status Date / Time celecoxib Allergy Severe Hives Verified 03/12/22 11:14 levofloxacin Allergy Intermediate Nausea Verified 03/12/22 11:14 Sulfa (Sulfonamide Allergy Intermediate Nausea Verified 03/12/22 11:14 Antibiotics) Vital Signs Vital Signs - 24 hr 03/18/22 15:42 03/18/22 22:33 03/18/22 22:45 Temperature 98.3 F 98
[2022-03-19 12:57] VITALS: BMI 22.4
--- NOTE | 2022-03-19 13:26 | PM.IMPN ---
Progress Note: A&P Assessment and Plan (1) Intractable pain: Code(s): R52 - Pain, unspecified Status: Acute Assessment and Plan: -the patient was started on IV Tylenol -orthopedic physician has been notified and recommends an MRI of the right hip for tomorrow. -CT of the pelvis as mentioned above. 1. 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 2. Severe stenosis of right common femoral artery and moderate stenosis of right common iliac artery. 3. Mild osteoarthritis of the hips. -as mentioned above in the HPI the ED provider did call a vascular surgeon who recommended that the patient be seen outpatient -continue with analgesics -MRI of the right hip scheduled for tomorrow. -arterial Dopplers ordered for tomorrow. -the patient had a venous Doppler which was negative for DVT and the patient is currently on Eliquis. Arterial Doppler does show some vascular disease in his right lower extremity. Legs are both warm. Symptoms on the right lower quadrant of the abdomen probably completely unrelated to her vascular disease issues. If she has ongoing right lower extremity symptoms will need a follow-up with vascular surgery.\ Appreciate surgical input (2) Hypertension: Code(s): I10 - Essential (primary) hypertension Status: Chronic Assessment and Plan: -continue with amlodipine (3) Chronic obstructive pulmonary disease: Code(s): J44.9 - Chronic obstructive pulmonary disease, unspecified Status: Chronic Assessment and Plan: -continue with home inhalers (4) Chronic GERD: Code(s): K21.9 - Gastro-esophageal reflux disease without esophagitis Status: Acute Assessment and Plan: -continue with IV Pepcid -stool softener since she is on narcotic (5) Hyperlipidemia: Qualifiers: Hyperlipidemia type: mixed hyperlipidemia Qualified Code(s): E78.2 - Mixed hyperlipidemia Code(s): E78.5 - Hyperlipidemia, unspecified Status: Acute Assessment and Plan: -continue with atorvastatin Subjective Date/time seen: 03/19/22 13:26 Still complaining of right lower quadrant pain. Exam Const: General: cooperative, healthy appearing, comfortable, no acute distress, well developed, alert, awake and Physically active Nutritional Appearance: average body habitus and well nourished Orientation/consciousness: oriented to person, oriented to place, oriented to time and patient oriented x3 Limitations: no limitations HENMT: Head: normal to inspection, No palpable skull fracture present, normocephalic and atraumatic Ears: hearing grossly normal bilaterally and external ears normal General nose exam: Normal external nose present and Normal nares present Eyes: General: appearance normal, both eyes and all related structures Alignment and Position: alignment normal Periorbital: periorbital findings normal Eyelids: eyelids normal Sclera: sclerae normal Pupils: Equal, round and reactive pupils present EOM: EOMs intact bilaterally Neck: Neck: normal visual inspection, full ROM, no lymphadenopathy, trachea midline and supple Chest: Chest palpation & inspection: normal inspection of the chest Resp: Effort & Inspection: normal respiratory effort Auscultation: clear to auscultation bilaterally Cardio: Palpation: normal PMI Rate: regular rate Rhythm: regular rhythm Heart sounds: S1 normal heart sound present and S2 normal heart sound present Peripheral pulses: Peripheral pulses 2+ throughout GI: Inspection: normal to inspection Auscultation: normal bowel sounds Rectal Exam: deferred Back/Spine/Pelvis: Cervical Spine: cervical ROM normal Skin: General skin exam: normal color Lesions: no lesions Hair: normal Nails: normal Other: Dressing to right knee dry intact. She has a hematoma around the area of her knee replacement with purple bruising noted from her knee down to her right ankle. Neuro: General: oriented to person, oriented to place, pavan
[2022-03-19 14:00] VITALS: BP 116/50; PULSE 91; RESP 20; TEMP 36.4; O2SAT 97
--- NOTE | 2022-03-19 14:20 | PM.PNGS ---
Progress Note: A&P Assessment and Plan (1) Right lower quadrant abdominal pain: Code(s): R10.31 - Right lower quadrant pain Status: Acute Assessment and Plan: Patient seen and examined. I discussed the patient with ANDRESSA Olguin. I agree with her documentation as noted in her consultation. I provided a substantive portion of the care of this patient. I personally performed the medical decision making and much of the history and exam for this encounter. I reviewed the CT scan independently. I do not see evidence of an acute surgical process at this time. I spoke with Dr. Dunlap regarding my findings. I suspect that her fullness and tenderness in the right lower quadrant is distended cecum from retained stool. Will give oral per good if is a as well as some enemas. Repeat her CBC and exam again tomorrow. Thank you for asking us to see her in consultation. We will follow along with you. Subjective Subjective Date/Time Seen: 03/19/22 14:20 Interval history: The patient is a 71-year-old woman who had a right total knee arthroplasty 1 week ago. She has been on apixaban prophylaxis for venous thromboembolism. She was doing well but 3 days ago began experiencing right lower quadrant abdominal pain. She admits that she has not had a bowel movement for several days. She did have a couple of small bowel movements at home but that was probably 4 days ago. She came to the emergency room and had a thorough evaluation. She is seen in consultation at the request of Dr. Dunlap regarding her right lower quadrant abdominal pain. She has had no nausea or vomiting. She has not noticed any fever. Review of Systems Review of Systems: All systems reviewed & are unremarkable except as noted in HPI and below ( HPI) Exam Const: General: comfortable and no acute distress GI: Inspection: normal to inspection, non-distended and no visible herniation GI Palp: Yes Soft to palpation, Yes Tenderness to palpation present (GI) ( right lower quadrant), No Guarding due to palpation present (GI), No Hepatomegaly present, No Splenomegaly present, No Hernia present, Yes Palpable mass present ( fullness right lower quadrant) and No Ascites present Auscultation: normal bowel sounds Objective Data Vital Signs Vital Signs: Vital Signs - 24 hr 03/18/22 15:42 03/18/22 22:33 03/18/22 22:45 Temperature 36.8 C 37.0 C 36.6 C Pulse Rate 99 89 92 Respiratory Rate 18 16 22 H Blood Pressure 134/60 115/52 L 129/61 Pulse Oximetry 98 97 94 Oxygen Delivery Room Air 03/18/22 23:56 03/19/22 04:18 03/18/22 22:55 Temperature 36.4 C 36.6 C Pulse Rate 89 92 Respiratory Rate 16 22 H Blood Pressure 126/53 L 129/61 Pulse Oximetry 92 94 Oxygen Delivery Room Air Intake/Output Intake/Output: Intake & Output 03/16/22 03/17/22 03/18/22 03/19/22 23:59 23:59 23:59 23:59 Intake Total 100 540 Output Total 200 Balance 100 340 Meds/Results Medications: Active Medications Generic Name Dose Route Start Last Admin Trade Name Freq PRN Reason Stop Dose Admin Amlodipine Besylate 5 mg 03/19/22 09:00 03/19/22 08:32 Amlodipine Besylate 5 Mg Tablet PO 5 mg DAILY KRISTEN Administration Apixaban 2.5 mg 03/19/22 00:45 03/19/22 12:37 Apixaban 2.5 Mg Tablet PO 2.5 mg Q12HR KRISTEN Administration Atorvastatin Calcium 20 mg 03/19/22 09:00 03/19/22 08:33 Atorvastatin 20 Mg Tablet PO 20 mg DAILY KRISTEN Administration Famotidine 20 mg 03/19/22 09:00 03/19/22 08:45 Famotidine 20 Mg/2 Ml Vial IV PUSH 20 mg BID KRISTEN Administration Hydromorphone HCl 0.5 mg 03/18/22 21:45 03/19/22 10:41 Hydromorphone Hcl Inj (*Crx) 1 Mg/Ml Syr IV PUSH 0.5 mg Q2H PRN Administration Pain Rated 7-10 Acetaminophen 1,000 mg in 100 mls @ 400 mls/hr 03/18/22 21:50 Ofirmev 1,000 Mg Ivpb IVPB 03/19/22 21:49 Q6H PRN pain3-6 Lisinopril 20 mg 03/19/22 09:00 03/19/22 08:32 Lisinopril 20 M
--- NOTE | 2022-03-19 14:34 | PM.CNGS ---
Assessment and Plan Assessment and plan (1) Right lower quadrant abdominal pain: Code(s): R10.31 - Right lower quadrant pain Status: Acute Assessment and Plan: Patient with RLQ abdominal pain. Her WBC count is normal and she is afebrile. There is no evidence of acute appendicitis or an acute surgical process at this time. She does have a large volume of stool throughout her colon, which could be contributing to her abdominal pain and possibly nausea. Will stimulate her bowels from above and agree with enemas. Will repeat labs tomorrow and monitor with serial abdominal exams. (2) COPD (chronic obstructive pulmonary disease) with chronic bronchitis: Code(s): J44.9 - Chronic obstructive pulmonary disease, unspecified Status: Acute (3) S/P total knee arthroplasty: Code(s): Z96.659 - Presence of unspecified artificial knee joint Status: Acute Plan I have discussed the patient's case and plan of care with Dr. Owens. Thank you for allowing us to see the patient in consultation and we will continue to follow along with you. History of Present Illness Consult details Consult date: 03/19/22 Reason for consult: other (RLQ abdominal pain) Requesting physician: Merrick Sanchez PA Narrative: This is a 71-year-old woman who had a right total knee arthroplasty 1 week ago.? She was discharged post-op day 1 and has been on apixaban for venous thromboembolism prophylaxis.? She was doing well until 3 days ago when she began experiencing right lower quadrant abdominal pain and right groin pain. She also endorses nausea ever since having surgery with a few episodes of vomiting at home. She had a few small BMs after surgery, but her last BM was 4 days ago.?The RLQ abdominal pain was initially mild and intermittent, but her pain became more severe yesterday. She presented to the ER for evaluation. Labs showed a normal WBC count. She had plain films of her right knee and hip that were unremarkable. Venous doppler study was negative for RLE DVT. CT abdomen/pelvis showed a large volume of stool in the colon, a normal appendix, 3.2 cm AAA, and mild OA of hips. Also incidentally noted was severe stenosis of the right common femoral artery and moderate stenosis of right common iliac artery. Vascular surgery was consulted from the ER and recommended outpatient f/u. She was admitted and is requiring IV Dilaudid for her pain almost every 2 hours.? She is now seen in consultation at the request of Dr. Dunlap regarding her right lower quadrant abdominal pain.? She denies any fever or chills. Her pain is very low in the RLQ almost in the right groin. Although she is having nausea, she is currently eating her lunch and has been tolerating this well. She reports having dry heaves last night. She has received Miralax once this morning and a fleets enema. She reports flatus. Labs again today show a normal WBC count. Review of Systems Review of Systems: All systems reviewed & are unremarkable except as noted in HPI and below Constitutional: Constitutional: Reports as per HPI, Reports no additional constitutional complaints, Denies chills, Denies fatigue, Denies fever(s), Denies headache(s) and Reports poor appetite Eyes: Eyes: Reports no additional eye complaints ENT: Reports system reviewed and no additional complaints, except as documented Cardiovascular: Cardiovascular: Reports no additional cardiovascular complaints, Denies chest pain and Denies leg edema Respiratory: Respiratory: Reports no additional respiratory complaints, Denies cough and Denies dyspnea Gastrointestinal: Gastrointestinal: Reports as per HPI, Reports no additional gastrointestinal complaints, Reports abdominal pain (RLQ, right groin), Denies melena, Denies bloating, Denies hematochezia, Reports constipation, Denies diarrhea, Reports nausea and Reports vomiting Genitourinary: Genitourinary: Reports no additional female genitourinary complaints Musculoskeletal: Musc
--- NOTE | 2022-03-19 14:36 | PM.CNGS ---
Assessment and Plan Assessment and plan (1) Right lower quadrant abdominal pain: Code(s): R10.31 - Right lower quadrant pain Status: Acute Assessment and Plan: patient has normal white count and no evidence of appendicitis by CT scan or MRI. No evidence of diverticulitis. There is no evidence of bleeding. She does have a fullness in the right lower quadrant and judging by the CT scan I think this is the cecum which is tender and distended with retained stool. I discussed this with Dr. Dunlap. will go ahead and start the patient on Metamucil, mineral oil, do collects tabs and Senokot. I will also go ahead with a soapsuds enema. Thank you for asking me to see the patient in consultation. I will follow along with you. We will repeat a CBC again in the morning as well as examination. (2) S/P total knee arthroplasty: Code(s): Z96.659 - Presence of unspecified artificial knee joint Status: Acute Assessment and Plan: One week ago. History of Present Illness Consult details Consult date: 03/19/22 Reason for consult: abdominal pain Requesting physician: Chacorta Dunlap MD Narrative: Patient is a 71-year-old woman who 1 week ago underwent right total knee arthroplasty. She did well following the surgery. She has been on laxatives as well as Eliquis for venous thromboembolism prophylaxis. About 3 days ago she started having right lower quadrant abdominal pain. She admits that she has been constipated. She had 2 small bowel movements after discharge but they were at least 4 days ago. She came to the emergency room today as this pain was intractable. She had a thorough workup. MRI of the hip showed no osteoarthritis and a labral tear. She also had a CT scan of the abdomen pelvis. This showed a normal appendix. There was a very small fusiform aneurysm and some evidence of inflow vascular disease on the right leg. ABIs showed 0.65 on the right side left side was normal. Venous Doppler was negative. Patient's white count was normal. She is seen now in consultation for her right lower quadrant abdominal pain at the request of Dr. Dunlap. she has had no fever or chills. She has had no nausea or vomiting. She has never had pain like this before. She did receive a Fleet's enema but had very minimal bowel movement afterwards. Her right lower quadrant pain has stayed the same since she has been in the hospital. Review of Systems Review of Systems: All systems reviewed & are unremarkable except as noted in HPI and below ( HPI and those items noted below) Constitutional: Constitutional: Denies chills and Denies fever(s) Cardiovascular: Cardiovascular: Denies chest pain, Denies diaphoresis, Denies dyspnea and Denies paroxysmal nocturnal dyspnea Respiratory: Respiratory: Denies chest congestion, Denies cough and Denies dyspnea Gastrointestinal: Gastrointestinal: Reports as per HPI, Reports abdominal pain, Reports constipation, Denies nausea and Denies vomiting Integumentary/Breasts: Skin/Breast: Denies lesions and Denies rash PMFSH Past Medical History Medical History (Updated 03/19/22 @ 14:26 by Vini Owens MD) Atypical pigmented lesion Chronic GERD Chronic obstructive pulmonary disease Encounter for colonoscopy in patient with family history of colon cancer Establishing care with new doctor, encounter for History of tobacco use Hyperlipidemia Hypertension Osteoarthritis Screening mammogram, encounter for Tobacco use disorder Surgical History Surgical History (Updated 03/19/22 @ 14:44 by Vini Owens MD) History of colonoscopy with polypectomy History of tonsillectomy S/P total knee arthroplasty Right knee 03/12/2022 Family History Family History Mother Carcinoma of colon Father Carcinoma of colon Social History Social History (Updated 03/18/22 @ 22:20 by Tiffany Angulo NP) Social History: The patient i
[2022-03-19] MEDS: BISACODYL 5 MG TABLET EC 10 MG PO (15:37)
[2022-03-19] MEDS: PSYLLIUM POWDER PACKET 1 PACKET PO (15:38)
[2022-03-19] MEDS: MINERAL OIL 30 ML UDC 15 ML PO (15:38)
[2022-03-19 19:53] VITALS: BP 126/48; PULSE 94; RESP 18; TEMP 36.4; O2SAT 93
[2022-03-19 20:00] VITALS: PULSE 94; RESP 18; O2SAT 93
[2022-03-20 04:43] VITALS: BP 124/73; PULSE 100; RESP 18; TEMP 36.4; O2SAT 94
[2022-03-20 05:26] LABS: Hemoglobin 9.9 g/dL (12.0-15.0); Mean Corpuscular Hemoglobin 29.9 pg (26-34); Mean Corpuscular Volume 90.6 fl (80-100); Mean Platelet Volume 9.4 fl (7.4-10.4); Platelet Count Result 298 k/mm3 (150-375); Red Blood Count 3.31 M/mm3 (4.2-5.4); Red Cell Distribution Width 12.8 % (11.5-14.5); White Blood Count 5.7 K/mm3 (4.5-10.0)
[2022-03-20 05:39] LABS: Anion Gap 6 mmol/L (8-16); Blood Urea Nitrogen 15 mg/dL (7-17); Calcium 8.8 mg/dL (8.4-10.2); Carbon Dioxide 31 mmol/L (22-30); Chloride 96 mmol/L (98-107); Estimated CRCL calculation 58 ml/min; Estimated Glomerular Filt Rate > 60; Glucose 96 mg/dL (65-110); Potassium 3.1 mmol/L (3.4-5.0); Sodium 133 mmol/L (137-145)
--- NOTE | 2022-03-20 07:29 | PM.PNORT ---
Progress Note: A&P Assessment and Plan (1) S/P total knee arthroplasty: Code(s): Z96.659 - Presence of unspecified artificial knee joint Status: Acute Assessment and Plan: Patient had passage of a great deal of gas but minimal stool yesterday. She has noticed no pain in the right lower quadrant this morning as yet so it would seem that the decompression of the distended cecum has associated with resolution of her right lower abdominal pain. She is complaining of more pain in her knee today and looking at her medication list, the IV Tylenol was discontinued but the oral Tylenol was not started. I have ordered 650 Tylenol scheduled Q 6 hours. Her relative ileus is likely due to the narcotic use and it would be best to minimize narcotic use and I have discussed this with her and we will try the 2.5 mg oxycodone on an as-needed basis. She has 5 mg at home and she can simply break these in half at home. Hopefully she will have solid stool expressed today to further evacuate the colon. I will defer to Dr. Owens recommendations for stool softening medications at discharge. She is trying to walk around frequently. She has extensive ecchymosis in her right leg. Her hemoglobin is 9.9 which is stable. There is mild swelling the right leg. It would be helpful for her leg to be elevated on pillows when she is in bed. Subjective Subjective Date/Time Seen: 03/20/22 07:29 Objective Data Vital Signs Vital Signs: Vital Signs - 24 hr 03/19/22 14:00 03/19/22 08:30 03/19/22 19:53 Temperature 36.4 C 36.4 C L Pulse Rate 91 94 Respiratory Rate 20 18 Blood Pressure 116/50 L 126/48 L Pulse Oximetry 97 93 Oxygen Delivery Room Air 03/19/22 20:00 03/20/22 04:43 Temperature 36.4 C Pulse Rate 94 100 Respiratory Rate 18 18 Blood Pressure 124/73 Pulse Oximetry 93 94 Oxygen Delivery Room Air Intake/Output Intake/Output: Intake & Output 03/17/22 03/18/22 03/19/22 03/20/22 23:59 23:59 23:59 23:59 Intake Total 100 1150 100 Output Total 200 Balance 100 950 100 Meds/Results Medications: Active Medications Generic Name Dose Route Start Last Admin Trade Name Freq PRN Reason Stop Dose Admin Acetaminophen 650 mg 03/20/22 07:30 Acetaminophen 325 Mg Tablet PO Q6H [facility] Amlodipine Besylate 5 mg 03/19/22 09:00 03/19/22 08:32 Amlodipine Besylate 5 Mg Tablet PO 5 mg DAILY [facility] Administration Apixaban 2.5 mg 03/19/22 00:45 03/19/22 20:27 Apixaban 2.5 Mg Tablet PO 2.5 mg Q12HR [facility] Administration Atorvastatin Calcium 20 mg 03/19/22 09:00 03/19/22 08:33 Atorvastatin 20 Mg Tablet PO 20 mg DAILY [facility] Administration Famotidine 20 mg 03/19/22 09:00 03/19/22 16:57 Famotidine 20 Mg/2 Ml Vial IV PUSH 20 mg BID [facility] Administration Hydromorphone HCl 0.5 mg 03/18/22 21:45 03/19/22 23:04 Hydromorphone Hcl Inj (*Crx) 1 Mg/Ml Syr IV PUSH 0.5 mg Q2H PRN Administration Pain Rated 7-10 Lisinopril 20 mg 03/19/22 09:00 03/19/22 08:32 Lisinopril 20 Mg Tablet PO 20 mg QAM [facility] Administration Meloxicam 7.5 mg 03/19/22 08:00 03/19/22 08:32 Meloxicam 7.5 Mg Tablet PO 7.5 mg DAILY@0800 [facility] Administration Mineral Oil 15 ml 03/19/22 21:00 03/19/22 20:28 Mineral Oil 30 Ml Udc PO Not Given Q12HR [facility] Ondansetron HCl 4 mg 03/18/22 22:18 03/19/22 08:25 Ondansetron Inj 4 Mg/2 Ml Vial IV PUSH 4 mg Q4H PRN Administration Nausea And Vomiting Oxycodone HCl 2.5 mg 03/20/22 07:28 Oxycodone Hcl (*Crx) 2.5 Mg Tab Ir PO Q4H PRN Pain Rated 7-10 Psyllium Hydrophilic Mucilloid 1 packet 03/19/22 21:00 03/19/22 20:29 Psyllium Powder Packet PO Not Given Q12HR [facility] Senna/Docusate Sodium 2 tab 03/19/22 21:00 03/19/22 20:27 Senna/Docusate Sodium Tablet PO 2 tab HS [facility] Administration Umeclidinium/Vilanterol 1 puff 03/19/22 08:00 03/19/22 11:03 Umeclidinium/Vilanterol 62.5-25 Mcg Ellipta
[2022-03-20 08:00] VITALS: PULSE 100; RESP 18; O2SAT 94
[2022-03-20] MEDS: UMECLIDINIUM/VILANTEROL 62.5-25 MCG ELLIPTA 1 PUFF INHALATION (08:03)
[2022-03-20] MEDS: APIXABAN 2.5 MG TABLET PO ×2 (08:56→21:24)
[2022-03-20] MEDS: amLODIPine BESYLATE 5 MG TABLET PO (08:56)
[2022-03-20] MEDS: MINERAL OIL 30 ML UDC 15 ML PO ×2 (08:56→21:28)
[2022-03-20] MEDS: CHOLECALCIFEROL 1,000 UNITS TABLET 2000 UNITS PO (08:56)
[2022-03-20] MEDS: PSYLLIUM POWDER PACKET 1 PACKET PO ×2 (08:56→21:28)
[2022-03-20] MEDS: ACETAMINOPHEN 500 MG TABLET 1000 MG PO ×2 (08:57→16:34)
[2022-03-20] MEDS: ATORVASTATIN 20 MG TABLET PO (08:57)
[2022-03-20] MEDS: lisinopriL 20 MG TABLET PO (08:57)
[2022-03-20] MEDS: FAMOTIDINE 20 MG/2 ML VIAL IV PUSH ×2 (08:58→16:34)
[2022-03-20] MEDS: MELOXICAM 7.5 MG TABLET PO (08:58)
--- NOTE | 2022-03-20 10:19 | PM.PNGS ---
Progress Note: A&P Assessment and Plan (1) Right lower quadrant abdominal pain: Code(s): R10.31 - Right lower quadrant pain Status: Acute Assessment and Plan: Clinically improving. RLQ abdominal pain improved and she is nontender on exam. Bowels moved this morning. Continue with bowel stimulation and treating her constipation. Avoid narcotics when possible. Continue to monitor. (2) S/P total knee arthroplasty: Code(s): Z96.659 - Presence of unspecified artificial knee joint Status: Acute Assessment and Plan: Encouraged increasing activity as tolerated with PT/OT. Plan I have discussed the patient's case and plan of care with Dr. Owens. Subjective Subjective Date/Time Seen: 03/20/22 10:19 Patient reports: no new complaints, feels better, tolerating a regular diet, flatus, bowel movement and afebrile Interval history: Patient seen and examined. She reports feeling much better today. Abdominal and groin pain has improved significantly. She reports lots of flatus today and had one large BM right before my arrival to her room. Also reports her nausea has improved and was able to tolerate breakfast well this am. Review of Systems Review of Systems: All systems reviewed & are unremarkable except as noted in HPI and below Exam Const: General: comfortable, no acute distress and awake Orientation/consciousness: patient oriented x3 GI: Inspection: normal to inspection and non-distended GI Palp: Yes Soft to palpation, No Tenderness to palpation present (GI), No Guarding due to palpation present (GI) and No Rebound tenderness present Auscultation: normal bowel sounds Extrem: Right lower extremity: edema (ecchymosis diffusely of right knee and lower leg) and knee (dressing dry and intact) Psych: Mental Status: mental status grossly normal Insight: Good insight present (Psych) Objective Data Vital Signs Vital Signs: Vital Signs - 24 hr 03/19/22 14:00 03/19/22 19:53 03/19/22 20:00 Temperature 97.6 F 97.5 F L Pulse Rate 91 94 94 Respiratory Rate 20 18 18 Blood Pressure 116/50 L 126/48 L Pulse Oximetry 97 93 93 Oxygen Delivery Room Air 03/20/22 04:43 Temperature 97.6 F Pulse Rate 100 Respiratory Rate 18 Blood Pressure 124/73 Pulse Oximetry 94 Oxygen Delivery Intake/Output Intake/Output: Intake & Output 0903/18/22 03/19/22 03/20/22 23:59 23:59 23:59 23:59 Intake Total 100 1150 340 Output Total 200 Balance 100 950 340 Meds/Results Medications: Active Medications Generic Name Dose Route Start Last Admin Trade Name Freq PRN Reason Stop Dose Admin Acetaminophen 1,000 mg 03/20/22 08:34 03/20/22 08:57 Acetaminophen 500 Mg Tablet PO 1,000 mg Q6H PRN Administration Mild Pain (1-3) or Fever Amlodipine Besylate 5 mg 03/19/22 09:00 03/20/22 08:56 Amlodipine Besylate 5 Mg Tablet PO 5 mg DAILY [facility] Administration Apixaban 2.5 mg 03/19/22 00:45 03/20/22 08:56 Apixaban 2.5 Mg Tablet PO 2.5 mg Q12HR [facility] Administration Atorvastatin Calcium 20 mg 03/19/22 09:00 03/20/22 08:57 Atorvastatin 20 Mg Tablet PO 20 mg DAILY [facility] Administration Famotidine 20 mg 03/19/22 09:00 03/20/22 08:58 Famotidine 20 Mg/2 Ml Vial IV PUSH 20 mg BID [facility] Administration Hydromorphone HCl 0.5 mg 03/18/22 21:45 03/19/22 23:04 Hydromorphone Hcl Inj (*Crx) 1 Mg/Ml Syr IV PUSH 0.5 mg Q2H PRN Administration Pain Rated 7-10 Lisinopril 20 mg 03/19/22 09:00 03/20/22 08:57 Lisinopril 20 Mg Tablet PO 20 mg QAM [facility] Administration Meloxicam 7.5 mg 03/19/22 08:00 03/20/22 08:58 Meloxicam 7.5 Mg Tablet PO 7.5 mg DAILY@0800 [facility] Administration Mineral Oil 15 ml 03/19/22 21:00 03/20/22 08:56 Mineral Oil 30 Ml Udc PO 15 ml Q12HR [facility] Administration Ondansetron HCl 4 mg 03/18/22 22:18 03/19/22 08:25 Ondansetron Inj 4 Mg/2 Ml Vial IV PUSH 4 mg Q4H PRN Administration Nausea A
--- NOTE | 2022-03-20 11:01 | PC.NURSE ---
On 03/20/22, the student, Marti Gaytan, provided care and completed [facility] documentation on this patient. I have reviewed the student's documentation and agree with the findings.
[2022-03-20] MEDS: POTASSIUM CHLORIDE 20 MEQ PACKET (FOR LIQUID) 40 MEQ PO (11:21)
--- NOTE | 2022-03-20 12:48 | PM.IMPN ---
Progress Note: A&P Assessment and Plan (1) Intractable pain: Code(s): R52 - Pain, unspecified Status: Acute Assessment and Plan: improved today. (2) Hypertension: Code(s): I10 - Essential (primary) hypertension Status: Chronic Assessment and Plan: -continue with amlodipine (3) Chronic obstructive pulmonary disease: Code(s): J44.9 - Chronic obstructive pulmonary disease, unspecified Status: Chronic Assessment and Plan: -continue with home inhalers (4) Chronic GERD: Code(s): K21.9 - Gastro-esophageal reflux disease without esophagitis Status: Acute Assessment and Plan: -continue with IV Pepcid -stool softener since she is on narcotic (5) Hyperlipidemia: Qualifiers: Hyperlipidemia type: mixed hyperlipidemia Qualified Code(s): E78.2 - Mixed hyperlipidemia Code(s): E78.5 - Hyperlipidemia, unspecified Status: Acute Assessment and Plan: -continue with atorvastatin Subjective Date/time seen: 03/20/22 12:48 No new complaints Exam Const: General: cooperative, healthy appearing, comfortable, no acute distress, well developed, alert, awake and Physically active Nutritional Appearance: average body habitus and well nourished Orientation/consciousness: oriented to person, oriented to place, oriented to time and patient oriented x3 Limitations: no limitations HENMT: Head: normal to inspection, No palpable skull fracture present, normocephalic and atraumatic Ears: hearing grossly normal bilaterally and external ears normal General nose exam: Normal external nose present and Normal nares present Eyes: General: appearance normal, both eyes and all related structures Alignment and Position: alignment normal Periorbital: periorbital findings normal Eyelids: eyelids normal Sclera: sclerae normal Pupils: Equal, round and reactive pupils present EOM: EOMs intact bilaterally Neck: Neck: normal visual inspection, full ROM, no lymphadenopathy, trachea midline and supple Chest: Chest palpation & inspection: normal inspection of the chest Resp: Effort & Inspection: normal respiratory effort Auscultation: clear to auscultation bilaterally Cardio: Palpation: normal PMI Rate: regular rate Rhythm: regular rhythm Heart sounds: S1 normal heart sound present and S2 normal heart sound present Peripheral pulses: Peripheral pulses 2+ throughout GI: Inspection: normal to inspection Auscultation: normal bowel sounds Rectal Exam: deferred Back/Spine/Pelvis: Cervical Spine: cervical ROM normal Skin: General skin exam: normal color Lesions: no lesions Hair: normal Nails: normal Other: Dressing to right knee dry intact. She has a hematoma around the area of her knee replacement with purple bruising noted from her knee down to her right ankle. Neuro: General: oriented to person, oriented to place, oriented to time and patient oriented x3 Cranial nerves: Yes Equal, round and reactive pupils present and Yes Normal hearing present Cognition (Neuro): normal cognition Speech: normal speech Sensory Exam: normal sensation Extrem: General: normal to inspection Right upper extremity: normal to inspection and shoulder/upper arm Left upper extremity: normal to inspection and shoulder/upper arm Left lower extremity: normal to inspection Other: Large amount of bruising to right knee all the way down to her ankle. Dressing intact to right knee without any drainage. Right lower extremity warm to touch with good capillary refill however her pedal pulse is weak. Psych: Appearance: grossly normal Mental Status: mental status grossly normal Speech and movement: Normal speech and movement present Affect: normal affect Attitude: cooperative Thought process: Normal thought process present Insight: Good insight present (Psych) Judgement: Good judgement present (Psych) Objective Data Vital Signs Vital Signs: Vital Signs - 24 hr 09
[2022-03-20 14:00] VITALS: BP 110/52; PULSE 92; RESP 18; TEMP 36.8; O2SAT 99
--- NOTE | 2022-03-20 14:47 | PCPTNOTE ---
Addendum entered by Natalie Rodriguez, PT 03/20/22 15:01: After patient showered, patient was agreeable to PT evaluation. Patient independent with functional mobility. Original Note: Attempted PT evaluation. Patient was found getting ready to take a shower independently. Per patient, she has been independent in the room using walker. Per patient, she continues to perform her HEP and ambulating as originally instructed with initial hospital stay when TKA was performed. Patient declines needing therapy services at this time. 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
[2022-03-20 19:55] VITALS: BP 107/49; PULSE 98; RESP 18; TEMP 36.4; O2SAT 95
[2022-03-20] MEDS: SENNA/DOCUSATE SODIUM TABLET 2 TAB PO (21:24)
[2022-03-21] MEDS: ACETAMINOPHEN 500 MG TABLET 1000 MG PO ×2 (00:01→12:59)
[2022-03-21 04:47] VITALS: BP 122/56; PULSE 82; RESP 16; TEMP 36.6; O2SAT 94
[2022-03-21] MEDS: CHOLECALCIFEROL 1,000 UNITS TABLET 2000 UNITS PO (08:40)
[2022-03-21] MEDS: APIXABAN 2.5 MG TABLET PO (08:40)
[2022-03-21] MEDS: ATORVASTATIN 20 MG TABLET PO (08:40)
[2022-03-21] MEDS: FAMOTIDINE 20 MG/2 ML VIAL IV PUSH (08:40)
[2022-03-21] MEDS: MINERAL OIL 30 ML UDC 15 ML PO (08:40)
[2022-03-21] MEDS: MELOXICAM 7.5 MG TABLET PO (08:40)
[2022-03-21] MEDS: amLODIPine BESYLATE 5 MG TABLET PO (08:40)
[2022-03-21] MEDS: lisinopriL 20 MG TABLET PO (08:40)
[2022-03-21] MEDS: PSYLLIUM POWDER PACKET 1 PACKET PO (08:40)
[2022-03-21 09:00] LABS: Anion Gap 8 mmol/L (8-16); Blood Urea Nitrogen 11 mg/dL (7-17); Calcium 9.3 mg/dL (8.4-10.2); Carbon Dioxide 30 mmol/L (22-30); Chloride 100 mmol/L (98-107); Estimated CRCL calculation 58 ml/min; Estimated Glomerular Filt Rate > 60; Glucose 98 mg/dL (65-110); Potassium 3.7 mmol/L (3.4-5.0); Sodium 138 mmol/L (137-145)
[2022-03-21] MEDS: UMECLIDINIUM/VILANTEROL 62.5-25 MCG ELLIPTA 1 PUFF INHALATION (09:10)
--- NOTE | 2022-03-21 10:55 | PM.PNGS ---
Progress Note: A&P Assessment and Plan (1) Right lower quadrant abdominal pain: Code(s): R10.31 - Right lower quadrant pain Status: Acute Assessment and Plan: Pain has resolved. Most likely due to constipation with retained stool in the cecum. Okay to discharge patient today. She does not need any new stool softeners but can go home on the MiraLax and Senokot that she already was taking. No need for surgical follow-up with me. Will sign off. (2) S/P total knee arthroplasty: Code(s): Z96.659 - Presence of unspecified artificial knee joint Status: Acute Subjective Subjective Date/Time Seen: 03/21/22 10:55 Patient reports: feels better (No abdominal pain. Only pain from knee replacement), bowel movement (Multiple BMs yesterday and this morning) and afebrile Review of Systems Review of Systems: All systems reviewed & are unremarkable except as noted in HPI and below (HPI and those items noted below) Constitutional: Constitutional: Denies chills and Denies fever(s) Cardiovascular: Cardiovascular: Denies chest pain, Denies diaphoresis, Denies dyspnea and Denies paroxysmal nocturnal dyspnea Respiratory: Respiratory: Denies chest congestion, Denies cough and Denies dyspnea Integumentary/Breasts: Skin/Breast: Denies lesions and Denies rash Exam Const: General: comfortable and no acute distress; No confusion Orientation/consciousness: patient oriented x3 and No confusion GI: Inspection: normal to inspection and non-distended GI Palp: Yes Soft to palpation, No Tenderness to palpation present (GI), No Guarding due to palpation present (GI) and No Rebound tenderness present Auscultation: normal bowel sounds Objective Data Vital Signs Vital Signs: Vital Signs - 24 hr 03/20/22 14:00 03/20/22 14:50 03/20/22 19:55 Temperature 36.8 C 36.4 C Pulse Rate 92 98 Respiratory Rate 18 18 Blood Pressure 110/52 L 107/49 L Pulse Oximetry 99 95 Oxygen Delivery Room Air 03/21/22 04:47 03/21/22 08:00 Temperature 36.6 C Pulse Rate 82 Respiratory Rate 16 Blood Pressure 122/56 L Pulse Oximetry 94 Oxygen Delivery Room Air Intake/Output Intake/Output: Intake & Output 03/18/22 03/19/22 03/20/22 03/21/22 23:59 23:59 23:59 23:59 Intake Total 100 1150 1020 390 Output Total 200 Balance 351 208 5397 390 Meds/Results Medications: Active Medications Generic Name Dose Route Start Last Admin Trade Name Freq PRN Reason Stop Dose Admin Acetaminophen 1,000 mg 03/20/22 08:34 03/21/22 00:01 Acetaminophen 500 Mg Tablet PO 1,000 mg Q6H PRN Administration Mild Pain (1-3) or Fever Amlodipine Besylate 5 mg 03/19/22 09:00 03/21/22 08:40 Amlodipine Besylate 5 Mg Tablet PO 5 mg DAILY [facility] Administration Apixaban 2.5 mg 03/19/22 00:45 03/21/22 08:40 Apixaban 2.5 Mg Tablet PO 2.5 mg Q12HR [facility] Administration Atorvastatin Calcium 20 mg 03/19/22 09:00 03/21/22 08:40 Atorvastatin 20 Mg Tablet PO 20 mg DAILY [facility] Administration Famotidine 20 mg 03/19/22 09:00 03/21/22 08:40 Famotidine 20 Mg/2 Ml Vial IV PUSH 20 mg BID [facility] Administration Hydromorphone HCl 0.5 mg 03/18/22 21:45 03/19/22 23:04 Hydromorphone Hcl Inj (*Crx) 1 Mg/Ml Syr IV PUSH 0.5 mg Q2H PRN Administration Pain Rated 7-10 Lisinopril 20 mg 03/19/22 09:00 03/21/22 08:40 Lisinopril 20 Mg Tablet PO 20 mg QAM [facility] Administration Meloxicam 7.5 mg 03/19/22 08:00 03/21/22 08:40 Meloxicam 7.5 Mg Tablet PO 7.5 mg DAILY@0800 [facility] Administration Mineral Oil 15 ml 03/19/22 21:00 03/21/22 08:40 Mineral Oil 30 Ml Udc PO 15 ml Q12HR [facility] Administration Ondansetron HCl 4 mg 03/18/22 22:18 03/19/22 08:25 Ondansetron Inj 4 Mg/2 Ml Vial IV PUSH 4 mg Q4H PRN Administration Nausea And Vomiting Oxycodone HCl 2.5 mg 03/20/22 07:28 Oxycodone Hcl (*Crx) 2.5 Mg Tab Ir PO Q4H PRN Pain Rated 7-10 Psyllium [place]
--- NOTE | 2022-03-21 11:59 | PM.DS ---
DS: Admitting Diagnosis Discharge Date March 21, 2022 Admitting Diagnosis right groin pain DS: Discharge Diagnosis Discharge Diagnosis (1) Intractable pain: Code(s): R52 - Pain, unspecified Status: Acute Assessment and Plan: improved today. (2) Hypertension: Code(s): I10 - Essential (primary) hypertension Status: Chronic Assessment and Plan: -continue with amlodipine (3) Chronic obstructive pulmonary disease: Code(s): J44.9 - Chronic obstructive pulmonary disease, unspecified Status: Chronic Assessment and Plan: -continue with home inhalers (4) Chronic GERD: Code(s): K21.9 - Gastro-esophageal reflux disease without esophagitis Status: Acute Assessment and Plan: -continue with IV Pepcid -stool softener since she is on narcotic (5) Hyperlipidemia: Qualifiers: Hyperlipidemia type: mixed hyperlipidemia Qualified Code(s): E78.2 - Mixed hyperlipidemia Code(s): E78.5 - Hyperlipidemia, unspecified Status: Acute Assessment and Plan: -continue with atorvastatin DS: Summary Hospital Course Hospital Course: patient has a recent knee arthroplasty in came with right groin pain. This is felt to be likely related to constipation after bowel movement patient had significant improvement. She has been doing well for the in the last 2 days. We adjusted her pain medications and gave her new medications for constipation. Otherwise she is doing better bowels are moving and she can be discharged Time Spent with Patient Time attestation: Total time spent providing and/or coordinating discharge services: Exam Const: General: cooperative, healthy appearing, comfortable, no acute distress, well developed, alert, awake and Physically active Nutritional Appearance: average body habitus and well nourished Orientation/consciousness: oriented to person, oriented to place, oriented to time and patient oriented x3 Limitations: no limitations HENMT: Head: normal to inspection, No palpable skull fracture present, normocephalic and atraumatic Ears: hearing grossly normal bilaterally and external ears normal General nose exam: Normal external nose present and Normal nares present Eyes: General: appearance normal, both eyes and all related structures Alignment and Position: alignment normal Periorbital: periorbital findings normal Eyelids: eyelids normal Sclera: sclerae normal Pupils: Equal, round and reactive pupils present EOM: EOMs intact bilaterally Neck: Neck: normal visual inspection, full ROM, no lymphadenopathy, trachea midline and supple Chest: Chest palpation & inspection: normal inspection of the chest Resp: Effort & Inspection: normal respiratory effort Auscultation: clear to auscultation bilaterally Cardio: Palpation: normal PMI Rate: regular rate Rhythm: regular rhythm Heart sounds: S1 normal heart sound present and S2 normal heart sound present Peripheral pulses: Peripheral pulses 2+ throughout GI: Inspection: normal to inspection Auscultation: normal bowel sounds Rectal Exam: deferred Back/Spine/Pelvis: Cervical Spine: cervical ROM normal Skin: General skin exam: normal color Lesions: no lesions Hair: normal Nails: normal Other: Dressing to right knee dry intact. She has a hematoma around the area of her knee replacement with purple bruising noted from her knee down to her right ankle. Neuro: General: oriented to person, oriented to place, oriented to time and patient oriented x3 Cranial nerves: Yes Equal, round and reactive pupils present and Yes Normal hearing present Cognition (Neuro): normal cognition Speech: normal speech Sensory Exam: normal sensation Extrem: General: normal to inspection Right upper extremity: normal to inspection and shoulder/upper arm Left upper extremity: normal to inspection and shoulder/upper arm Left lower extremity: normal to inspection Other: Large amount o
== END 2022-03-21 14:10 | disposition home health service (06) ==
LOC: ANHED 17:31 → ANH3MED 23:48
PROVIDERS: Emergency Medicine; Nurse Practitioner; Physician Assistant; Surgery; Admitting Provider Internal Medicine; Emergency Provider Emergency Medicine; PCP Internal Medicine; Visit Provider Chiropractor
DX: M25.551 Pain in right hip (principal); R10.31 Right lower quadrant pain; R11.0 Nausea; K59.00 Constipation, unspecified; K56.7 Ileus, unspecified; I25.10 Atherosclerotic heart disease of native coronary artery without angina pectoris; I71.4 Abdominal aortic aneurysm, without rupture; M79.89 Other specified soft tissue disorders; J44.9 Chronic obstructive pulmonary disease, unspecified; I10 Essential (primary) hypertension; E78.2 Mixed hyperlipidemia; K21.9 Gastro-esophageal reflux disease without esophagitis; N39.3 Stress incontinence (female) (male); M16.0 Bilateral primary osteoarthritis of hip; Z96.651 Presence of right artificial knee joint; Z87.891 Personal history of nicotine dependence; Z79.51 Long term (current) use of inhaled steroids; Z79.01 Long term (current) use of anticoagulants; Z79.891 Long term (current) use of opiate analgesic
CPT/HCPCS: 36415; 73502; 73562; 73723; 74177; 80048; 80053; 81001; 82728; 83605; 83735; 84100; 85025; 85027; 85610; 93923; 93971; 94640; 96365; 96375; 96376; 97161; 99285; A9270; A9577; G0378; J0131; J1170; J1885; J2270; J2405; Q9967

== ENCOUNTER 2022-05-19 09:20 | Emergency (ER) | payer MEDICARE, SELFPAY ==
[2022-05-19 09:30] VITALS: BP 136/81; PULSE 84; RESP 18; TEMP 36; O2SAT 98
--- NOTE | 2022-05-19 09:56 | ED.URI ---
HPI - URI/Sore Throat General Chief Complaint: Ear Stated Complaint: Right Ear, Neck Pain Time Seen by Provider: 05/19/22 09:57 Source: patient, RN notes reviewed and old records reviewed Mode of arrival: ambulatory Limitations: no limitations History of Present Illness HPI Narrative: 72-year-old female presents to the [facility] with complaints of 2 weeks of right-sided sinus congestion and pressure. Over the last 2 days started having pain and pressure in her right ear. Denies fevers chest pain, abdominal pain. Has tried [id number] Tylenol Sinus medication with no improvement. Related Data Home Medications Medication Instructions Recorded Confirmed cholecalciferol (vitamin D3) 50 50 mcg PO DAILY 02/24/22 05/19/22 mcg (2,000 unit) tablet acetaminophen 325 mg tablet (Mapap 650 mg PO Q6HR PRN Pain 03/18/22 05/19/22 (acetaminophen)) meloxicam 7.5 mg tablet 7.5 mg PO QAM 03/18/22 05/19/22 Allergies Allergy/AdvReac Type Severity Reaction Status Date / Time celecoxib Allergy Severe Hives Verified 05/19/22 09:46 levofloxacin Allergy Intermediate Nausea Verified 05/19/22 09:46 Sulfa (Sulfonamide Allergy Intermediate Nausea Verified 05/19/22 09:46 Antibiotics) Review of Systems Review of Systems: All systems reviewed & are unremarkable except as noted in HPI and below Constitutional: Constitutional: Reports no additional constitutional complaints, Denies chills and Denies fever(s) Eyes: Eyes: Reports no additional eye complaints ENT: Reports as per HPI Cardiovascular: Cardiovascular: Reports no additional cardiovascular complaints Respiratory: Respiratory: Reports no additional respiratory complaints Gastrointestinal: Gastrointestinal: Reports no additional gastrointestinal complaints Musculoskeletal: Musculoskeletal: Reports no additional musculoskeletal complaints Integumentary/Breasts: Skin/Breast: Reports system reviewed and no additional complaints, except as docu Neurologic: Reports system reviewed and no additional complaints, except as documented Psychiatric: Psychiatric: Reports no additional psychiatric complaints Allergic/Immunologic: Allergic/Immunologic: Reports no additional allergic/immunologic complaints PMFSH Past Medical History Medical History Atypical pigmented lesion Chronic GERD Chronic obstructive pulmonary disease Encounter for colonoscopy in patient with family history of colon cancer Establishing care with new doctor, encounter for History of tobacco use Hyperlipidemia Hypertension Osteoarthritis Screening mammogram, encounter for Tobacco use disorder Surgical History Surgical History History of colonoscopy with polypectomy History of tonsillectomy S/P total knee arthroplasty Right knee 03/12/2022 Family History Family History Mother Carcinoma of colon Father Carcinoma of colon Social History Social History Social History: 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 She is a former smoker and only has 1 child. She is . She denies any alcohol marijuana or illicit drug Surrogate medical decision maker: Cristine Baltazar, daughter. Code status: Full code. Smoking packs per day: 1 Smoking cigarettes per day: 20.0 Years smoked: 40 Smoking pack-years: 40.00 Smoking status: Former smoker Tobacco type: cigarettes Second hand tobacco smoke exposure: No Alcohol intake: never Substance use: never Substance use type: does not use Additional living arrangements comments: The patient lives in her own home in [place]. in June 2021. Additional occupation/education comments: Retired. Spiritual care concerns: No Comments At the time of my signature, I reviewed
== END 2022-05-19 10:10 | disposition home or self-care (01) ==
PROVIDERS: Emergency Provider Nurse Practitioner; PCP Internal Medicine
DX: J01.90 Acute sinusitis, unspecified (principal); Z87.891 Personal history of nicotine dependence; K21.9 Gastro-esophageal reflux disease without esophagitis; J44.9 Chronic obstructive pulmonary disease, unspecified; E78.5 Hyperlipidemia, unspecified; I10 Essential (primary) hypertension; M19.90 Unspecified osteoarthritis, unspecified site
CPT/HCPCS: 99213; G0463

== ENCOUNTER 2022-09-04 14:41 | Outpatient (CLI) | payer MEDICARE, SELFPAY ==
--- NOTE | ~2022-09-04 | XR_ITS ---
EXAMINATION: XR chest 2V 09/04/2022 14:54 INDICATION: Cough and shortness of breath PROCEDURE: 2 view chest COMPARISON: Comparison to multiple prior studies sequentially, with oldest reviewed study dated 10/10. FINDINGS: The lungs are clear. The cardiomediastinal silhouette is within normal limits. There are no pleural effusions. There is no pneumothorax suspected. There is dextroscoliosis of the thoracic spine. IMPRESSION: 1: NO ACUTE CARDIOPULMONARY DISEASE. Reviewed, dictated and finalized at location A. 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
== END 2022-09-04 14:42 | disposition home or self-care (01) ==
LOC: ANHIMG 14:46
PROVIDERS: PCP Internal Medicine; Visit Provider Nurse Practitioner
DX: R05.9 Cough, unspecified (principal)
CPT/HCPCS: 71046

== ENCOUNTER 2022-12-04 08:59 | Outpatient (CLI) | payer MEDICARE, SELFPAY ==
--- NOTE | ~2022-12-04 | XR_ITS ---
Clinical Indication: Shortness of breath PA and lateral views of the chest: Comparison: 09/04/2022 Findings: The lungs are clear, without evidence of focal consolidation or pleural effusion. Probable COPD. Cardiomediastinal silhouette is within normal limits. Bones and soft tissues are unremarkable. Impression: Probable COPD. Clear lungs. Reviewed, dictated and finalized at location . Impression: Probable COPD. Clear lungs.
== END 2022-12-04 09:00 | disposition home or self-care (01) ==
PROVIDERS: PCP Family Medicine; Visit Provider Nurse Practitioner
DX: R06.02 Shortness of breath (principal)
CPT/HCPCS: 71046

== ENCOUNTER 2023-03-14 11:21 | Emergency (ER) | payer MEDICARE, SELFPAY ==
[2023-03-14 11:36] VITALS: BP 135/62; PULSE 70; RESP 16; TEMP 36.6; O2SAT 95
--- NOTE | 2023-03-14 12:05 | ED.GENADULT ---
HPI - General Adult General Chief complaint: Upper Respiratory Infection Stated complaint: Neck Pain Time Seen by Provider: 03/14/23 11:55 Source: patient, RN notes reviewed and old records reviewed Mode of arrival: ambulatory Limitations: no limitations History of Present Illness HPI narrative: 72 year old female who presents to [facility] care with complaints of one week duration of swelling and pain in the bilateral submandibular gland region of her neck. Pateint has palpable swelling of gland with tenderness on palpation. Patient reports that she has had some sinus congestion and drainage also and has been taking Tylenol sinus medication, denies any fever chills or body aches. Patient reports that she saw an Ent a few months ago for same symptoms was told was salivary gland infection and put on antibiotics and they resolved but has reoccurred. Patient has history of past tobacco use and COPD. Patient denies any sore throat or any difficulty with her swallowing or any changes in her breathing status. MD complaint: submandibular gland swelling and tenderness. Onset (ago): week(s) (1) Location: neck (submandibular area) Severity: mild Treatments prior to arrival: other (Tylenol sinus, uses inhalers) Related Data Home Medications Medication Instructions Recorded Confirmed cholecalciferol (vitamin D3) 50 50 mcg PO DAILY 02/24/22 03/14/23 mcg (2,000 unit) tablet ibuprofen 600 mg tablet 600 mg PO TID 12/04/22 03/14/23 Allergies Allergy/AdvReac Type Severity Reaction Status Date / Time celecoxib Allergy Severe Hives Verified 03/14/23 11:43 levofloxacin Allergy Intermediate Nausea Verified 03/14/23 11:43 Sulfa (Sulfonamide Allergy Intermediate Nausea Verified 03/14/23 11:43 Antibiotics) doxycycline Allergy Nausea and Verified 03/14/23 12:02 Vomiting Review of Systems Review of Systems: CONSTITUTIONAL: Denies malaise, chills, sweats, or fever. EYES: Denies visual changes, redness, or discharge. ENT: Reports rhinorrhea, sinus congestion,no sinus pain, otalgia and no sore throat.swelling and discomfort of bilateral submandibular glands CARDIOVASCULAR: Denies chest pain, palpitations, or edema. RESPIRATORY: Reports cough.? Denies acute dyspnea. GASTROINTESTINAL: Denies abdominal pain, nausea, vomiting, diarrhea SKIN: Denies rash or itching. MUSCULOSKELETAL: Denies myalgia. NEUROLOGIC: Denies headache. All systems reviewed & are unremarkable except as noted in HPI and below PMFSH Past Medical History Medical History Atypical pigmented lesion Chronic GERD Chronic obstructive pulmonary disease Encounter for colonoscopy in patient with family history of colon cancer Establishing care with new doctor, encounter for History of tobacco use Hyperlipidemia Hypertension Osteoarthritis Screening mammogram, encounter for Tobacco use disorder Surgical History Surgical History History of colonoscopy with polypectomy History of tonsillectomy S/P total knee arthroplasty Right knee 03/12/2022 Family History Family History Mother Carcinoma of colon Father Carcinoma of colon Social History Social History Social History: 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 She is a former smoker and only has 1 child. She is . She denies any alcohol marijuana or illicit drug Surrogate medical decision maker: Cristine Baltazar, daughter. Code status: Full code. Smoking packs per day: 1 Smoking cigarettes per day: 20.0 Years smoked: 40 Smoking pack-years: 40.00 Smoking status: Former smoker Tobacco type: cigarettes Second hand tobacco smoke exposure: No Alcohol intake: never Substance use: never Substance use type: does not use Lack of Trans
== END 2023-03-14 12:27 | disposition home or self-care (01) ==
PROVIDERS: Emergency Provider Registered Nurse; PCP Family Medicine
DX: K11.1 Hypertrophy of salivary gland (principal); K11.9 Disease of salivary gland, unspecified; Z87.891 Personal history of nicotine dependence; K21.9 Gastro-esophageal reflux disease without esophagitis; J44.9 Chronic obstructive pulmonary disease, unspecified; E78.5 Hyperlipidemia, unspecified; I10 Essential (primary) hypertension; M19.90 Unspecified osteoarthritis, unspecified site
CPT/HCPCS: 99213; G0463

== ENCOUNTER 2023-05-19 00:41 | Day surgery (SDC) | payer MEDICARE, SELFPAY ==
[2023-05-07 13:31] VITALS: BMI 24.1
--- NOTE | 2023-05-15 11:09 | SUR.PREOP ---
Patient called regarding upcoming procedure. Reviewed preop instructions, appointment times, and procedure prep.
[2023-05-19 11:09] VITALS: BP 131/61; PULSE 106; RESP 18; TEMP 36.2; O2SAT 92
[2023-05-19] MEDS: LACTATED RINGERS 1,000 ML 150 ML IV CONT (11:19)
--- NOTE | 2023-05-19 11:40 | PM.HPGS ---
History of Present Illness History of Present Illness Consent: Risks, benefits, and alternatives have been discussed and questions answered. Patient agrees to proceed with procedure. Chief complaint: Hx colon polyps, Family hx colon CA Narrative: Delilah Baltazar is a 73 year old female Presents for screening colonoscopy. Patient states that her current weight appetite and bowel movements are normal. Patient denies abdominal pain. She has had no bleeding. Her family history is significant both mother and father have had colon cancer. Patient herself has had colon polyps on frequent occasions in the past. Most recent colonoscopy 2018. Review of Systems Review of Systems: Review of systems noncontributory. [facility] Past Medical History Medical History (Updated 04/28/23 @ 13:27 by Rober Seaman APRN) Atypical pigmented lesion Chronic GERD Chronic obstructive pulmonary disease Encounter for colonoscopy in patient with family history of colon cancer Establishing care with new doctor, encounter for History of tobacco use Hyperlipidemia Hypertension Osteoarthritis Screening mammogram, encounter for Tobacco use disorder Surgical History Surgical History History of colonoscopy with polypectomy History of tonsillectomy S/P total knee arthroplasty Right knee 03/12/2022 Family History Family History Mother Carcinoma of colon Father Carcinoma of colon Social History Social History Social History: 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 She is a former smoker and only has 1 child. She is . She denies any alcohol marijuana or illicit drug Surrogate medical decision maker: Cristine Baltazar, daughter. Code status: Full code. Smoking packs per day: 1 Smoking cigarettes per day: 20.0 Years smoked: 50 Smoking pack-years: 50.00 Smoking status: Former smoker Tobacco type: cigarettes Second hand tobacco smoke exposure: No Alcohol intake: never Substance use: never Substance use type: does not use Lack of Transportation: No Lack of Food: Never True Current Housing: I Have Housing Concerned About Future Housing: No Difficulty Paying Gas/Electric Bills: No Difficulty Paying for Meds: No Currently Unemployed: No Difficulty w/ Childcare or Family Care: No Living arrangements: alone Additional living arrangements comments: The patient lives in her own home in [place]. in June 2021. Additional occupation/education comments: Retired. Spiritual care concerns: No Meds Home Medications and Allergies Home Medications Medication Instructions Recorded Confirmed Type cholecalciferol (vitamin D3) 50 50 mcg PO DAILY 02/24/22 05/07/23 History mcg (2,000 unit) tablet perindopril erbumine 8 mg tablet 8 mg PO DAILY 90 days #90 tabs 11/14/22 05/07/23 Rx albuterol sulfate 90 mcg/actuation 2 inh inhalation Q4H PRN shortness 12/04/22 05/07/23 Rx aerosol inhaler of breath or wheezing #8.5 grams ibuprofen 600 mg tablet 600 mg PO TID 12/04/22 05/07/23 History amlodipine 5 mg tablet 5 mg PO DAILY #90 tabs 04/06/23 05/07/23 Rx atorvastatin 20 mg tablet 20 mg PO DAILY 90 days #90 tabs 04/22/23 05/07/23 Rx pantoprazole 40 mg tablet,delayed See Rx Instructions .Route 04/28/23 05/07/23 Rx release .COMPLEX #90 tabs tiotropium 2.5 mcg-olodaterol 2.5 See Rx Instructions .Route 04/28/23 05/07/23 Rx mcg/actuation mist for inhalation .COMPLEX #4 grams (Stiolto Respimat) Allergies Allergy/AdvReac Type Severity Reaction Status Date / Time celecoxib Allergy Severe Hives Verified 05/19/23 11:07 levofloxacin Allergy Intermediate Nausea Verified 05/19/23 11:07 Sulfa (Sulfonamide Allergy Intermediate Nausea Verified 05/19/23 11:07 Antibiotics) nishant
--- NOTE | 2023-05-19 12:27 | WPDANESEPPF ---
Anes - Initial Pre Proc Eval Procedure: Operation Date: 05/19/23 12:30 Proposed Procedures p Colonoscopy - Zachary Martinez MD Date/Time: 05/19/23 12:27 Surgeon: Zachary Martinez MD Pre Op Diagnosis: Hx colon polyps, Family hx colon CA Patient Data Age: 73 Gender: F Height: 1.57 m Weight: 58.1 kg Last Vital Signs Temp 97.1 F L 05/19/23 11:09 Pulse 106 H 05/19/23 11:09 Resp 18 05/19/23 11:09 BP 131/61 05/19/23 11:09 Pulse Ox 92 05/19/23 11:09 O2 Del Method Room Air 05/19/23 11:09 Allergies Allergy/AdvReac Type Severity Reaction Status Date / Time celecoxib Allergy Severe Hives Verified 05/19/23 11:07 levofloxacin Allergy Intermediate Nausea Verified 05/19/23 11:07 Sulfa (Sulfonamide Allergy Intermediate Nausea Verified 05/19/23 11:07 Antibiotics) doxycycline Allergy Nausea and Verified 05/19/23 11:07 Vomiting Home Medications Medication Instructions Recorded Confirmed Type cholecalciferol (vitamin D3) 50 50 mcg PO DAILY 02/24/22 05/07/23 History mcg (2,000 unit) tablet perindopril erbumine 8 mg tablet 8 mg PO DAILY 90 days #90 tabs 11/14/22 05/07/23 Rx albuterol sulfate 90 mcg/actuation 2 inh inhalation Q4H PRN shortness 12/04/22 05/07/23 Rx aerosol inhaler of breath or wheezing #8.5 grams ibuprofen 600 mg tablet 600 mg PO TID 12/04/22 05/07/23 History amlodipine 5 mg tablet 5 mg PO DAILY #90 tabs 04/06/23 05/07/23 Rx atorvastatin 20 mg tablet 20 mg PO DAILY 90 days #90 tabs 04/22/23 05/07/23 Rx pantoprazole 40 mg tablet,delayed See Rx Instructions .Route 04/28/23 05/07/23 Rx release .COMPLEX #90 tabs tiotropium 2.5 mcg-olodaterol 2.5 See Rx Instructions .Route 04/28/23 05/07/23 Rx mcg/actuation mist for inhalation .COMPLEX #4 grams (Stiolto Respimat) Patient hx anesthesia problems: none Family hx anesthesia problems: none Results Review: All pre-operative results and documents have been reviewed as part of the pre-operative evaluation. [facility] Past Medical History Medical History (Updated 04/28/23 @ 13:27 by Rober Seaman APRN) Atypical pigmented lesion Chronic GERD Chronic obstructive pulmonary disease Encounter for colonoscopy in patient with family history of colon cancer Establishing care with new doctor, encounter for History of tobacco use Hyperlipidemia Hypertension Osteoarthritis Screening mammogram, encounter for Tobacco use disorder Surgical History Surgical History History of colonoscopy with polypectomy History of tonsillectomy S/P total knee arthroplasty Right knee 03/12/2022 Family History Family History Mother Carcinoma of colon Father Carcinoma of colon Social History Social History Social History: 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 She is a former smoker and only has 1 child. She is . She denies any alcohol marijuana or illicit drug Surrogate medical decision maker: Cristine Baltazar, daughter. Code status: Full code. Smoking packs per day: 1 Smoking cigarettes per day: 20.0 Years smoked: 50 Smoking pack-years: 50.00 Smoking status: Former smoker Tobacco type: cigarettes Second hand tobacco smoke exposure: No Alcohol intake: never Substance use: never Substance use type: does not use Lack of Transportation: No Lack of Food: Never True Current Housing: I Have Housing Concerned About Future Housing: No Difficulty Paying Gas/Electric Bills: No Difficulty Paying for Meds: No Currently Unemployed: No Difficulty w/ Childcare or Family Care: No Living arrangements: alone Additional living arrangements comments: The patient lives in her own home in [place]. in June 2021. Additional occupation/education comments: Retired. Spiritual ca
[2023-05-19 13:47] VITALS: BP 118/78; PULSE 81; RESP 20; O2SAT 97
--- NOTE | 2023-05-19 13:47 | SUR.PREOP ---
Patient notified that Dr Martinez is running behind and was updated to plan of care.
[2023-05-19 13:57] VITALS: BP 133/75; PULSE 75; RESP 16; O2SAT 92
[2023-05-19 14:07] VITALS: BP 136/75; PULSE 75; RESP 19; O2SAT 92
== END 2023-05-19 14:11 | disposition home or self-care (01) ==
PROVIDERS: PCP Nurse Practitioner; Visit Provider Internal Medicine Gastroenterology
PROC: 0DJD8ZZ Inspection of Lower Intestinal Tract, Via Natural or Artificial Opening Endoscopic (ICD-10-PCS; CPT 45378; principal; 2023-05-19 12:30)
DX: Z12.11 Encounter for screening for malignant neoplasm of colon (principal); D12.7 Benign neoplasm of rectosigmoid junction; K63.5 Polyp of colon; Z80.0 Family history of malignant neoplasm of digestive organs; Z79.51 Long term (current) use of inhaled steroids; J44.9 Chronic obstructive pulmonary disease, unspecified; I10 Essential (primary) hypertension; E78.5 Hyperlipidemia, unspecified; K21.9 Gastro-esophageal reflux disease without esophagitis; Z87.891 Personal history of nicotine dependence
CPT/HCPCS: 45385; 88305; J2704; J7120

== ENCOUNTER 2023-06-09 09:06 | Outpatient (CLI) | payer MEDICARE, SELFPAY ==
--- NOTE | ~2023-06-09 | CT_ITS ---
CT Scan of the Chest without Contrast: Clinical Indication: Lung cancer screening, personal history of nicotine dependence Technique: Contiguous sections were acquired throughout the chest without intravenous contrast. Dose reduction technique was used on this scan by utilizing automated exposure control and iterative recon struction technique. The dose-length product (DLP) was 63.15 mGy-cm. COMPARISON: 02/25/2021 Findings: There is no evidence of any significant mediastinal, hilar or axillary lymphadenopathy. There are ext ensive atherosclerotic calcifications of the aorta and coronary arteries. There is no evidence of pleural or pericardial effusion. Advanced emphysema noted. No pulmonary nodule seen. Images through the upper abdomen reveal stable hepatic cyst. Impression: Lung RADS 1: Negative. 12 month follow-up screening CT advised. Advanced emphysema. Reviewed, dictated and finalized at [facility]. SETTER Impression: Lung RADS 1: Negative. 12 month follow-up screening CT advised. Advanced emphysema.
[2023-06-09 10:00] VITALS: PULSE 86; O2SAT 92
[2023-06-09 10:03] VITALS: PULSE 106; O2SAT 84
[2023-06-09 10:04] VITALS: O2SAT 87
[2023-06-09 10:05] VITALS: PULSE 107; O2SAT 90
[2023-06-09 10:15] VITALS: PULSE 90; O2SAT 93
--- NOTE | 2023-06-09 11:41 | HOMEO2EVAL ---
Evaluation was performed at [facility] Home Oxygen Evaluation RC: Home Oxygen (O2) Evaluation Start: 06/09/23 11:39 Freq: Status: Active Protocol: RPE Activity Type Activity Date Activity User E-sign Co-sign Detail Recorded Client Recorded Date Recorded By Document 06/09/23 10:00 MARY JANE [email or web address] 06/09/23 11:41 MARY JANE Document 06/09/23 10:03 MARY JANE [email or web address] 06/09/23 11:41 MARY JANE Document 06/09/23 10:04 MARY JANE [email or web address] 06/09/23 11:41 MARY JANE Document 06/09/23 10:05 MARY JANE [email or web address] 06/09/23 11:41 MARY JANE Document 06/09/23 10:15 MARY JANE [email or web address] 06/09/23 11:41 MARY JANE 06/09/23 06/09/23 06/09/23 10:00 10:03 10:04 Home O2 Evaluation [Oxygen] -Test Phase Resting Exercise Exercise -Oxygen Delivery Room Air Room Air Nasal Cannula -Oxygen Flow Rate (L/min) 1 [Pulse Oximetry] -Pulse Oximetry (90-100 %) 92 84 L 87 L [Pulse Rate] -Pulse Rate (60-100 beats/min) 86 106 H [Comments] -Home Oxygen Evaluation Comments [Charges] -Treatment Charges O2 Evaluation - Outpatient 06/09/23 06/09/23 10:05 10:15 Home O2 Evaluation [Oxygen] -Test Phase Exercise Resting -Oxygen Delivery Nasal Cannula Room Air -Oxygen Flow Rate (L/min) 2 [Pulse Oximetry] -Pulse Oximetry (90-100 %) 90 93 [Pulse Rate] -Pulse Rate (60-100 beats/min) 107 H 90 [Comments] -Home Oxygen Evaluation Comments PT REQUIRES 2 L HOME O2 WITH ACTIVITY/ EXERTION [Charges] -Treatment Charges
--- NOTE | 2023-06-09 12:19 | WPDPFTINT ---
PFT Procedure Performed PFT Procedure Performed Spirometry with Pre/Post Bronchodilator Plethysmography (Lung Vol) Diffusing Cap (DLCO) Flow Vol Loop PFT Interpretation This is a pulmonary function test with pre and post-bronchodilator spirometry, plethysmography and diffusing capacity. The test was performed and results interpreted in accordance with the 2019 and 2005 ATS/ERS Task Force guidelines respectively using the Global Lung Function Initiative-2012 reference equations. Patient demonstrated good effort and cooperation. Reproducibility criteria were met. The quality of the pre bronchodilator spirometry maneuver was Grade A and post bronchodilator spirometry maneuver was Grade A. Findings: Spirometry: There is decreased maximal expiratory airflow at all lung volumes with concave expiratory flow tracing. The contour the inspiratory flow tracing is normal. The pre bronchodilator FVC is 2.25 L, 88% predicted. The pre bronchodilator FEV1 is 1.17 L, 59% predicted. The pre bronchodilator FEV1: FVC ratio is 52%. The post bronchodilator FVC is 2.29 L, representing a 2% increase. The post bronchodilator FEV1 is 1.25 L, representing a 7% increase. The post bronchodilator FEV1: FVC ratio is 54%. Plethysmography: The total lung capacity is 5.03 L, 107% predicted. The functional residual capacity is 3.24 L, 120% predicted. The residual volume is 2.45 L, 115% predicted. Diffusing capacity: The diffusing capacity unadjusted for hemoglobin and carboxyhemoglobin is 7.5, 39% predicted. The diffusing capacity adjusted for alveolar volume is 2.17, 50% predicted. Impression: There is a moderately severe obstructive abnormality without significant improvement after inhaling a single dose of albuterol. The lung volumes are normal. The diffusing capacity unadjusted for hemoglobin and carboxyhemoglobin is severely decreased and remains moderately decreased when adjusted for alveolar volume. There are no prior studies for comparison
== END 2023-06-09 09:07 | disposition home or self-care (01) ==
PROVIDERS: PCP Nurse Practitioner; Visit Provider Nurse Practitioner Family
DX: J44.9 Chronic obstructive pulmonary disease, unspecified (principal); Z12.2 Encounter for screening for malignant neoplasm of respiratory organs; R06.09 Other forms of dyspnea; Z87.891 Personal history of nicotine dependence; R94.2 Abnormal results of pulmonary function studies; J43.9 Emphysema, unspecified
CPT/HCPCS: 71271; 94060; 94618; 94726; 94729

== ENCOUNTER 2023-11-18 15:38 | Outpatient (CLI) | payer MEDICARE, SELFPAY ==
--- NOTE | ~2023-11-18 | MM_ITS ---
EXAMINATION: MM screening jorge l BI w doug HISTORY: Screening mammogram TECHNIQUE: Craniocaudal and mediolateral oblique 3-D tomosynthesis images were obtained and synthetic 2-D images were generated. CAD analysis was submitted and interpreted. COMPARISON: 04/24/2021 diagnostic right mammogram and Limited right breast ultrasound examination, re ported negative 04/15/2021 bilateral screening mammogram BREAST PARENCHYMAL COMPOSITION: The breasts are heterogeneously dense, which may obscure small masses . FINDINGS: There is an approximate 6 x 8 mm circumscribed multilobular opacity in the central very pos terior lower most aspect of the right breast, situated at the lower most Doug slices, likely a skin l esion. Recommend clinical correlation to confirm that this is a skin lesion, which might include phys ical examination or repeat examination with skin marker at the lesion. If there is no verified corres ponding skin lesion, then diagnostic right mammogram and right breast ultrasound examination recommen ded. Otherwise there is no evidence of suspicious mass, calcification, or architectural distortion to sugg est malignancy in either breast. There has been no other suspicious interval change. IMPRESSION: 1. Probable skin lesion in the central right posterior lower most aspect of the right breast, recomme nd visual inspection to confirm, with diagnostic mammogram or ultrasound as appropriate, if necessary 2. Recommend routine screening mammography in one year. BI-RADS Category 0: Incomplete: Needs additional imaging evaluation. Reviewed, dictated and finalized at location B. IMPRESSION: 1. Probable skin lesion in the central right posterior lower most aspect of the right breast, recommend visual inspection to confirm, with diagnostic mammogra m or ultrasound as appropriate, if necessary 2. Recommend routine screening mammography in one year. BI-RADS Category 0: Incomplete: Needs additional imaging evaluation.
== END 2023-11-18 15:39 | disposition home or self-care (01) ==
LOC: ANHIMG 16:12
PROVIDERS: PCP Nurse Practitioner; Visit Provider Nurse Practitioner
DX: Z12.31 Encounter for screening mammogram for malignant neoplasm of breast (principal); R92.8 Other abnormal and inconclusive findings on diagnostic imaging of breast
CPT/HCPCS: 77063; 77067

== ENCOUNTER → 2023-12-22 08:37 | Outpatient (REF) | payer MEDICARE, SELFPAY | LOC: ANHLAB 08:37 | PROVIDERS: PCP Nurse Practitioner; Visit Provider Plastic Surgery | DX: L82.1 Other seborrheic keratosis (principal) | CPT/HCPCS: 88305 ==

== ENCOUNTER 2023-12-23 16:56 | Emergency (ER) | payer MEDICARE, SELFPAY ==
[2023-12-23 17:04] VITALS: BP 117/68; PULSE 105; RESP 20; TEMP 36.4; O2SAT 95
--- NOTE | 2023-12-23 17:15 | ED.ALLEREA ---
HPI - Allergic Reaction General Chief complaint: Allergic Reaction Stated complaint: Wasp Sting Time Seen by Provider: 12/23/23 17:08 Source: patient and RN notes reviewed Mode of arrival: ambulatory Limitations: no limitations History of Present Illness HPI narrative: Patient presents today complaining of several wasp stings approximately 1.5 hours prior to arrival. States she has never been stung before and that large rash has formed. She took 1 25mg benadryl prior to arrival without relief of symptoms. Denies worse shortness of breath, difficulty swallowing, facial swelling. Patient's COPD and wears 2 L of O2 via nasal cannula at baseline. Related Data Home Medications Medication Instructions Recorded Confirmed cholecalciferol (vitamin D3) 50 50 mcg PO DAILY 02/24/22 12/23/23 mcg (2,000 unit) tablet ibuprofen 600 mg tablet 600 mg PO TID 12/04/22 12/23/23 Allergies Allergy/AdvReac Type Severity Reaction Status Date / Time celecoxib Allergy Severe Hives Verified 12/23/23 16:57 levofloxacin Allergy Intermediate Nausea Verified 12/23/23 16:57 Sulfa (Sulfonamide Allergy Intermediate Nausea Verified 12/23/23 16:57 Antibiotics) doxycycline Allergy Nausea and Verified 12/23/23 16:57 Vomiting Review of Systems Review of Systems: CONSTITUTIONAL: Denies body aches, fever, chills, or sweats. EYES: Denies visual changes, redness, or discharge. ENT: Denies rhinorrhea, congestion, sore throat, or otalgia. CARDIOVASCULAR: Denies chest pain, palpitations, or edema. RESPIRATORY: Denies cough or dyspnea. GASTROINTESTINAL: Denies abdominal pain, nausea, vomiting, or diarrhea. GENITOURINARY: Denies dysuria or hematuria. SKIN: +insect sting, rash MUSCULOSKELETAL: Denies back pain, joint pain, or myalgia. NEUROLOGIC: Denies headache, numbness, tingling, or weakness. PSYCH: Denies depression or anxiety. [facility] Past Medical History Medical History Atypical pigmented lesion Chronic GERD Chronic obstructive pulmonary disease Encounter for colonoscopy in patient with family history of colon cancer Establishing care with new doctor, encounter for History of tobacco use Hyperlipidemia Hypertension Osteoarthritis Screening mammogram, encounter for Tobacco use disorder Surgical History Surgical History History of colonoscopy with polypectomy History of tonsillectomy S/P total knee arthroplasty Right knee 03/12/2022 Family History Family History Mother Carcinoma of colon Father Carcinoma of colon Social History Social History Social History: 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 She is a former smoker and only has 1 child. She is . She denies any alcohol marijuana or illicit drug Surrogate medical decision maker: Cristine Baltazar, daughter. Code status: Full code. Smoking packs per day: 1 Smoking cigarettes per day: 20.0 Years smoked: 50 Smoking pack-years: 50.00 Smoking status: Former smoker Tobacco type: cigarettes Second hand tobacco smoke exposure: No Smoking end date: 07/13/19 Alcohol intake: never Substance use: never Substance use type: does not use Do You Feel Safe in your Home?: Yes Lack of Transportation: No Lack of Food: Never True Current Housing: I Have Housing Concerned About Future Housing: No Difficulty Paying Gas/Electric Bills: No Difficulty Paying for Meds: No Currently Unemployed: No Education: High School Diploma/GED Difficulty w/ Childcare or Family Care: No Living arrangements: alone Additional living arrangements comments: The patient lives in her own home in [place]. in June 2021. Additional occupation/education comments: [employer]
[2023-12-23] MEDS: dexAMETHasone SOD PHOS INJ 10 MG/ML 1 ML VIAL IM (17:20)
== END 2023-12-23 17:55 | disposition home or self-care (01) ==
PROVIDERS: Emergency Provider Nurse Practitioner; PCP Nurse Practitioner
DX: T63.461A Toxic effect of venom of wasps, accidental (unintentional), initial encounter (principal); L50.0 Allergic urticaria; Z87.891 Personal history of nicotine dependence; J44.9 Chronic obstructive pulmonary disease, unspecified; Z99.81 Dependence on supplemental oxygen; E78.5 Hyperlipidemia, unspecified; I10 Essential (primary) hypertension; M19.90 Unspecified osteoarthritis, unspecified site; K21.9 Gastro-esophageal reflux disease without esophagitis
CPT/HCPCS: 96372; 99213; G0463; J1100

== ENCOUNTER 2024-02-11 10:06 | Outpatient (CLI) | payer MEDICARE, SELFPAY ==
--- NOTE | ~2024-02-11 | XR_ITS ---
Lumbosacral Spine: AP and lateral views Clinical History: Pain Findings: There is dextroscoliosis of lumbar spine. There is severe degenerative disc narrowing throu ghout the lumbar spine. There is severe facet arthropathy throughout the lumbar spine. The sacroiliac joints are normally outlined. There are extensive atherosclerotic ossifications aorta, with suspecte d distal abdominal aortic aneurysm measuring up to 4.5 cm in diameter. Impression: Severe degenerative spondylosis throughout the lumbar spine, with associated dextroscoliosis. Findings consistent with 4.5 cm distal abdominal aortic aneurysm, delineated by extensive atheroscler otic calcifications on lateral view. Consider CT to further evaluate, as indicated. Reviewed, dictated and finalized at location . Impression: Severe degenerative spondylosis throughout the lumbar spine, with associated de xtroscoliosis. Findings consistent with 4.5 cm distal abdominal aortic aneurysm, delineated by extensive atherosclerotic calcifications on lateral view. Consider CT to furth er evaluate, as indicated.
== END 2024-02-11 10:07 | disposition home or self-care (01) ==
LOC: ANHIMG 10:09
PROVIDERS: PCP Nurse Practitioner; Visit Provider Nurse Practitioner
DX: M47.896 Other spondylosis, lumbar region (principal)
CPT/HCPCS: 72100

== ENCOUNTER 2024-02-19 07:29 | Outpatient (CLI) | payer MEDICARE, SELFPAY ==
--- NOTE | ~2024-02-19 | CT_ITS ---
CT of the Abdomen and Pelvis: Indication: Abdominal aortic aneurysm Technique: 2.5 mm axial scans were obtained through the abdomen and pelvis following intravenous adm inistration of 100 cc of Omnipaque 350. Dose reduction technique was used on this scan by utilizing a utomated exposure control and iterative reconstruction technique. The dose-length product (DLP) was 2 63.83 mGy-cm. COMPARISON: 03/18/2022 Findings: Scans through the lung bases are unremarkable. Stable hepatic cyst present. The spleen, pancreas, gallbladder, adrenals and kidneys are within alison l limits. There is a 3.4 cm infrarenal abdominal aortic aneurysm, with extensive atherosclerotic calc ifications and some mural thrombus. No lymphadenopathy. No bowel obstruction or bowel wall thickening. There is no evidence to suggest acute appendicitis. Images through the pelvis were performed. Urinary bladder unremarkable. No pelvic mass seen. No ascit es. Impression: 3.4 cm infrarenal abdominal aortic aneurysm, minimally increased in size from prior exam. Reviewed, dictated and finalized at location . Impression: 3.4 cm infrarenal abdominal aortic aneurysm, minimally increased in size from p rior exam.
[2024-02-19 07:49] LABS: Estimated Glomerular Filt Rate > 60
== END 2024-02-19 07:30 | disposition home or self-care (01) ==
PROVIDERS: PCP Nurse Practitioner; Visit Provider Nurse Practitioner
DX: R93.89 Abnormal findings on diagnostic imaging of other specified body structures (principal); I71.43 Infrarenal abdominal aortic aneurysm, without rupture
CPT/HCPCS: 74177; Q9967

== ENCOUNTER 2024-05-29 13:31 | Emergency (ER) | payer MEDICARE, SELFPAY ==
[2024-05-29 13:46] VITALS: BP 148/72; PULSE 78; RESP 16; TEMP 36.2; O2SAT 93
[2024-05-29 13:50] VITALS: RESP 18; O2SAT 93
[2024-05-29 13:51] VITALS: BP 148/72; PULSE 78; RESP 16; TEMP 36.2; O2SAT 93
--- NOTE | 2024-05-29 13:54 | ED_ITS ---
HPI - URI/Sore Throat General Chief Complaint: Upper Respiratory Infection Stated Complaint: chest congestion COPD HX Time Seen by Provider: 05/29/24 13:55 Source: patient, RN notes reviewed and old records reviewed Mode of arrival: ambulatory Limitations: no limitations History of Present Illness HPI Narrative: Patient with COPD and chronic respiratory failure, on supplemental oxygen, presents with complaints of cough, wheeze, shortness of breath for 2-3 days. She arrives speaking in complete sentence, no tripoding. She does report that she typically does not use her home oxygen at rest, but over the past few days has needed 2-3 L even while at rest to be comfortable. She denies any fever. She does report congested feeling in the chest and audible wheezes at home. She has been using inhalers and nebulizers as prescribed. She voices no other concerns or complaints at this time. She is not in any distress, including respiratory distress Related Data Home Medications Medication Instructions Recorded Confirmed cholecalciferol (vitamin D3) 50 50 mcg PO DAILY 02/24/22 05/05/24 mcg (2,000 unit) tablet ibuprofen 600 mg tablet 600 mg PO TID 12/04/22 05/05/24 aspirin 81 mg tablet,delayed 81 mg PO DAILY 05/05/24 05/05/24 release (Adult Aspirin Regimen) Allergies Allergy/AdvReac Type Severity Reaction Status Date / Time celecoxib Allergy Severe Hives Verified 05/05/24 07:19 levofloxacin Allergy Intermediate Nausea Verified 05/05/24 07:19 Sulfa (Sulfonamide Allergy Intermediate Nausea Verified 05/05/24 07:19 Antibiotics) doxycycline Allergy Nausea and Verified 05/05/24 07:19 Vomiting Review of Systems Review of Systems: All systems reviewed & are unremarkable except as noted in HPI and below Constitutional: Constitutional: Reports no additional constitutional complaints ENT: Reports system reviewed and no additional complaints, except as documented Cardiovascular: Cardiovascular: Reports no additional cardiovascular complaints Respiratory: Respiratory: Reports as per HPI, Reports no additional respiratory complaints, Reports chest congestion, Reports cough, Reports excessive phlegm production, Reports dyspnea on exertion and Reports wheezing Gastrointestinal: Gastrointestinal: Reports no additional gastrointestinal complaints PMFSH Past Medical History Medical History Atypical pigmented lesion Chronic GERD Chronic obstructive pulmonary disease Encounter for colonoscopy in patient with family history of colon cancer Establishing care with new doctor, encounter for History of tobacco use Hyperlipidemia Hypertension Osteoarthritis Screening mammogram, encounter for Tobacco use disorder Surgical History Surgical History History of colonoscopy with polypectomy History of tonsillectomy S/P total knee arthroplasty Right knee 03/12/2022 Family History Family History Mother Carcinoma of colon Father Carcinoma of colon Sibling No problems noted. 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 She is a former smoker and only has 1 child. She is . She denies any alcohol marijuana or illicit drug Surrogate medical decision maker: Cristine Baltazar, daughter. Code status: Full code. Smoking packs per day: 1 Smoking cigarettes per day: 20.0 Years smoked: 50 Smoking pack-years: 50.00 Smoking status: Former smoker Tobacco type: cigarettes Second hand tobacco smoke exposure: No Smoking end date: 07/13/19 Alcohol intake: never Substance use: never Substance use type: does not use Do You Feel Safe in your Home?: Yes Lack of Transportation: No Lack of Food: Never True Current Housing: I Have Housing Concerned About Future Housing: No Difficulty Paying Gas/Electric Bills: No Difficulty Paying for Meds: No Currently Unemployed: No Education: High School Diploma/GED Difficulty w/ Childcare or Family Care: No Living arrangements: alone Additional living arrangements comments: The patient lives in her own home in [place]. in June 2021. Occupation/Education: retired Additional occupation/education comments: [employer] Gender identity (if verbalized by the patient): Female Spiritual care concerns: No Comments At the time of my signature, I reviewed and agree with the nursing past medical, surgical, social, and family history. There is no relevant family history pertinent to the patient complaint. Exam Const: General: cooperative, no acute distress, alert and awake Orientation/consciousness: oriented to person, oriented to place and oriented to time HENMT: Head: normal to inspection Mouth: Yes moist mucous membranes Resp: Effort & Inspection: normal respiratory effort, able to speak in complet e sentences, Actively coughing, no respiratory distress, no retractions and no tripod positioning Auscultation: clear to auscultation bilaterally, no crackles, no rales, no rhonchi, no wheezes and diminished lung sounds Other: Three L home O2 via nasal cannula Cardio: Palpation: normal PMI Rate: regular rate Rhythm: regular rhythm Heart sounds: S1 normal heart sound present and S2 normal heart sound present Neuro: General: oriented to person, oriented to place and oriented to time Cranial nerves: Yes CN's II-XII intact bilaterally Psych: Appearance: grossly normal Thought process: Normal thought process present Insight: Good insight present (Psych) Judgement: Good judgement present (Psych) Course Course Level of Care: Express Care Visit Vital Signs Vital signs: Vital Signs Temperature 97.1 F L 05/29/24 13:46 Pulse Rate 78 05/29/24 13:46 Respiratory Rate 16 05/29/24 13:46 Blood Pressure 148/72 H 05/29/24 13:46 Pulse Oximetry 93 05/29/24 13:46 Oxygen Delivery Room Air 05/29/24 13:46 Temperature 97.1 F L 05/29/24 13:51 Pulse Rate 78 05/29/24 13:51 Respiratory Rate 16 05/29/24 13:51 Blood Pressure 148/72 H 05/29/24 13:51 Pulse Oximetry 93 05/29/24 13:51 Oxygen Delivery Room Air 05/29/24 13:51 Reviewed MDM - URI/Sore Throat MDM Narrative Medical decision making narrative: Patient with no signs of respiratory distress, using home O2, speaking full sentences presents with history and exam consistent with COPD exacerbation. Has inhalers and nebulizer at home. Started azithromycin and prednisone. Patient advised to follow with office services associate and primary care provider. Emergency department for new or worse symptoms. Discharge instructions reviewed with patient, as well as provided in writing per nursing staff. The instructions also include specific and strict return/GO TO THE ER as well as f/u information. All questions have been answered, and the patient deny any further questions with discharge and discharge plan. Some parts of this dictation were generated by voice recognition software and may contain typographical and/or grammatical inaccuracies. Differential Diagnosis Differential diagnosis: Likely upper respiratory infection, viral infection and bronchitis Medical Records Attestation: I reviewed the patient's medical records. Discharge Plan Discharge Clinical Impression: COPD exacerbation Patient Disposition: Home, Self-Care Condition: Stable Instructions: Antibiotic Form Additional Instructions: Take all medications as prescribed. Follow with primary care provider and office services associate. Emergency department immediately for new or worse symptoms Patient Language: German Prescriptions: New azithromycin 250 mg tablet See Rx Instructions .ROUTE .COMPLEX Qty: 6 0RF Rx Instructions: For 250 mg dose pack: take 500 mg today (day 1), then 250 mg for 4 days (days 2-5) prednisone 50 mg tablet 50 mg PO DAILY Qty: 5 0RF No Action epinephrine [EpiPen] 0.3 mg/0.3 mL auto-injector 0.3 ml subcut Q5-15M PRN (Reason: anaphylaxis) Qty: 2 0RF Rx Instructions: do not exceed 2 doses per episode aspirin [Adult Aspirin Regimen] 81 mg tablet,delayed release (DR/EC) 81 mg PO DAILY ibuprofen 600 mg tablet 600 mg PO TID cholecalciferol (vitamin D3) 50 mcg (2,000 unit) Tablet 50 mcg PO DAILY Patient Comments: QAM hydrochlorothiazide 12.5 mg tablet 12.5 mg PO DAILY Qty: 90 1RF pantoprazole 40 mg tablet,delayed release (DR/EC) See Rx Instructions .ROUTE .COMPLEX Qty: 90 1RF Dose Instruction: TAKE 1 TABLET BY MOUTH EVERY DAY Rx Instructions: TAKE 1 TABLET BY MOUTH EVERY DAY Trelegy Ellipta 100-62.5-25 mcg blister with device 1 inh inhalation Q24H Qty: 60 11RF Rx Instructions: rinse and spit amlodipine 5 mg tablet 5 mg PO DAILY Qty: 90 1RF Patient Comments: QAM albuterol sulfate 90 mcg/actuation HFA aerosol inhaler 2 inh inhalation Q4H PRN (Reason: shortness of breath or wheezing) Qty: 8.5 2RF atorvastatin 20 mg tablet 20 mg PO DAILY 90 Days Qty: 90 1RF Patient Comments: HS perindopril erbumine 8 mg tablet 8 mg PO DAILY 90 Days Qty: 90 1RF Patient Comments: QAM Follow-up/Referrals: Rober Seaman APRN [Primary Care Provider] - 3 Days Manny Doan APRN [Advanced Practice Nurse] - 3 Days Time of Disposition: 14:08
== END 2024-05-29 14:15 | disposition home or self-care (01) ==
PROVIDERS: Emergency Provider Nurse Practitioner Family; PCP Nurse Practitioner
DX: J44.1 Chronic obstructive pulmonary disease with (acute) exacerbation (principal); Z99.81 Dependence on supplemental oxygen; Z87.891 Personal history of nicotine dependence; K21.9 Gastro-esophageal reflux disease without esophagitis; E78.5 Hyperlipidemia, unspecified; I10 Essential (primary) hypertension; M19.90 Unspecified osteoarthritis, unspecified site
CPT/HCPCS: 99213; G0463

== ENCOUNTER 2024-06-13 10:33 | Outpatient (CLI) | payer MEDICARE, SELFPAY ==
--- NOTE | ~2024-06-13 | CT_ITS ---
CT Scan of the Chest without Contrast: Clinical Indication: Lung cancer screening, nicotine dependence Technique: Contiguous sections were acquired throughout the chest without intravenous contrast. Dose reduction technique was used on this scan by utilizing automated exposure control and iterative recon struction technique. The dose-length product (DLP) was 62.28 mGy-cm. COMPARISON: 06/09/2023 Findings: There is no evidence of any significant mediastinal, hilar or axillary lymphadenopathy. Coronary katy ry calcifications are present.. There is no evidence of pleural or pericardial effusion. There is linear scarring or atelectasis left lung base. No pulmonary nodule evident. There is advance d emphysema. Images through the upper abdomen reveal no abnormalities. Impression: Lung RADS 2: Benign appearance. 12 month follow-up screening CT advised. Advanced emphysema. Reviewed, dictated and finalized at [facility]. RRER STRIP Impression: Lung RADS 2: Benign appearance. 12 month follow-up screening CT advised. Advanced emphysema.
== END 2024-06-13 10:34 | disposition home or self-care (01) ==
PROVIDERS: PCP Nurse Practitioner; Visit Provider Nurse Practitioner Family
DX: Z12.2 Encounter for screening for malignant neoplasm of respiratory organs (principal); J43.9 Emphysema, unspecified; Z87.891 Personal history of nicotine dependence
CPT/HCPCS: 71271

== ENCOUNTER 2024-08-26 08:32 | Outpatient (CLI) | payer MEDICARE, SELFPAY ==
--- OUTSIDE RECORDS SUMMARY | 2024-08-26 08:38 | XMS_ITS | Clinical Summary ---
Author Organization [facility] [employer] Address [address] [place] [address] Care Team Providers Care Religion Instructor Name Role Phone Rickie Alatorre DO Primary Care Provider [phone] Source Comments [facility] [employer]non-owned Affiliates and Associated Physician Practices is amultiple site organization consisting of ambulatory clinics and hospital sitesin [place], [place], [place] and [place]. This disclosure is being madepursuant to the Care Everywhere program and may not contain all information available regarding this patient. Last updated 18.[facility] [employer] Allergies Active Allergy Reactions Criticality Noted Date Comments Celecoxib Urticaria Medium 12/31/2021 Levofloxacin Itching 03/26/2022 Sulfa Drugs Other Low 12/31/2021 Medications * Be aware that medications may not be up to date on this document. Alwaysverify current medications with the patient. Medication Sig Dispensed Refills Start Date End Date Status atorvastatin (Lipitor) 20 MG tablet Take 20 mg by mouth at bedtime Active pantoprazole EC (Protonix) 40 MG tablet Take 40 mg by mouth once daily Active amLODIPine (Norvasc) 5 MG tablet Take 5 mg by mouth once daily Active Perindopril Erbumine 8 MG Take 8 mg by mouth once daily Active meloxicam (Mobic) 7.5 MG tablet Take 7.5 mg by mouth once daily Active ondansetron (Zofran) 8 MG tablet Take 8 mg by mouth 2 times daily Active apixaban (Eliquis) 2.5 MG tablet Take 2.5 mg by mouth 2 times daily Active HYDROcodone-acetaminop hen ([place]) 7.5-325 MG tablet Take 1 tablet by mouth as needed for Pain Active Cholecalciferol (Vitamin D) 125 MCG (5000 UT) CAPS Take 5,000 Units by mouth once daily Active Tiotropium Dysart-Olodaterol (Stiolto Respimat) 2.5-2.5 MCG/ACT Inhale 1 puff by mouth once daily Active Active Problems Problem Noted Date Diagnosed Date Abdominal aortic aneurysm (AAA) without rupture 03/26/2022 Femoral artery stenosis, right 03/26/2022 Right iliac artery stenosis 03/26/2022 Family History Medical History Relation Name Comments None Known Father None Known Mother Relation Name Status Comments Father Mother Social History Tobacco Use Types Packs/Day Years Used Date Smoking Tobacco: Former Tobacco Cessation:Counseling Given: No Alcohol Use Standard Drinks/Week Comments Not Currently 0 (1 standard drink = 0.6 oz pur e alcohol) Sex and Gender Information Value Date Recorded Sex Assigned at Not on file Gender Identity Not on file Sexual Orientation Not on file Last Filed Vital Signs Vital Sign Reading Time Taken Comments Blood Pressure - - Pulse - - Temperature - - Respiratory Rate - - Oxygen Saturation - - Inhaled Oxygen Concentration - - Weight 55.3 kg (122 lb) 03/26/2022 1:27 PM CDT Height 157.5 cm (5' 2 ) 03/26/2022 1:27 PM CDT Body Mass Index 22.31 03/26/2022 1:27 PM CDT Plan of Treatment Health Maintenance Due Date Last Done Comments BONE DENSITY TESTING 1950 COLOGUARD (AGES 45-75) - COL ON CA SCREENING 1950 COLON MONITORING 1950 COLONOSCOPY - COLON CA SCREENING 1950 CT COLONOGRAPHY - COLON CA SCREENING 1950 Colorectal Cancer Screening 1950 FIT - COLON CA SCREENING 1950 FLEX SIG - COLON CA SCREENING 1950 MAMMOGRAM 1950 HEPATITIS C SCREENING 03/23/1968 DTAP/TDAP/TD VACCINES (1 - Tdap) 1969 PNEUMOCOCCAL VACCINE 50+ (1 of 1 - PCV) 2000 ZOSTER VACCINE (1 of 2) 2000 COVID-19 VACCINE ( - 2023-2 5 season) 2024 INFLUENZA VACCINE (#1) 2024 DEPRESSION SCREENING 07/13/2024 MEDICARE AWV CALENDAR YEAR 2024 Respiratory Syncytial Virus (RSV) Vaccine Pt: or over 60 yrs (1 - 1-dose 75+ series) 2025 HEPATITIS B VACCINE Aged Out No longe r eligible based on patient's age to complete this topic HIB VACCINE Aged Out No longer eligi ble based on patient's age to complete this topic HPV VACCINE Aged Out No longer eligi ble based on patient's age to complete this topic MENINGOCOCCAL (Group B) VACCINE Aged Out No longer eligible based on patient's age to complete this topic MENINGOCOCCAL VACCINE Aged Out No rogers gonzales eligible based on patient's age to complete this topic Care Teams Religion Instructor Relationship Specialty Start Date End Date Rickie Alatorre DO [address] [place] [address] PCP - General Internal Medicine 03/26/22
--- OUTSIDE RECORDS SUMMARY | 2024-08-26 08:38 | XMS_ITS | Referral Summary ---
Author Organization [facility] Address [address] [place] [id number] Care Team Providers Care Brake Mechanic Name Role Phone Jared Nick MD Primary Care Provider [phone] Allergies Active Allergy Reactions Criticality Noted Date Comments Celecoxib Hives Medium 12/31/2021 Sulfa (Sulfonamide Antibiotics) Nausea only Low Medications albuterol HFA (PROVENTIL HFA,VENTOLIN HFA,PROAIR HFA) 90 mcg/actuation inhaler Inhale 2 puffs every 6 (six) hours as needed Active amLODIPine (NORVASC) 5 mg tablet Take 1 tablet (5 mg total) by mouth daily Active atorvastatin (LIPITOR) 20 mg tablet Take 1 tablet (20 mg total) by mouth daily Active ibuprofen (ADVIL,MOTRIN) 200 mg tab/cap Take by mouth every 6 (six) hours as needed Active pantoprazole DR (PROTONIX) 40 mg EC tablet Take 1 tablet (40 mg total) by mouth daily Active tiotropium Br/olodaterol HCl (STIOLTO RESPIMAT INHAL) Inhale Acti ve vit D3-vit [id number]-mg tablet Take by mouth Active perindopril (ACEON) 8 mg tablet Take 1 tablet (8 mg total) by mouth daily 11/18/2021 Active Active Problems Problem Noted Date Diagnosed Date Infrarenal abdominal aortic aneurysm (AAA) witho ut rupture 03/30/2024 Assessment & Plan (03/30/2024 9:15 AM CDT): 3.4 cm from outside reference CTA of abd/pelvis. Follow up 1 year with aortic duplex continue good blood pressure control and asa and statin therapy. Pre-operative cardiovascular examination 022 Essential hypertension 12/31/2021 Mixed hyperlipidemia 12/31/2021 Chronic obstructive pulmonary disease 12/31/2021 History of tobacco abuse 12/31/2021 Social History Tobacco Use Types Packs/Day Years Used Date Smoking Tobacco: Former Cigarettes Q uit: 2020 Personal Safety Answer Date Recorded Getting School Help Needed Not on file 09/12 Comments Unknown Sex and Gender Information Value Date Recorded Sex Assigned at Not on file Legal Sex Female 10:48 AM CDT Gender Identity Not on file Sexual Orientation Not on file Last Filed Vital Signs Vital Sign Reading Time Taken Comments Blood Pressure 160/71 03/30/2024 8:28 AM CDT Pulse 69 03/30/2024 8:28 AM CDT Temperature - - Respiratory Rate - - Oxygen Saturation 98% 03/30/2024 8:28 AM CDT Inhaled Oxygen Concentration - - Weight 56.5 kg (124 lb 9 oz) 12/31/2021 8:05 AM CDT Height 157.5 cm (5' 2 ) 12/31/2021 8:05 AM CDT Body Mass Index 22.78 12/31/2021 8:05 AM CDT Plan of Treatment Not on file Insurance [employer] MEDICARE Care Teams Brake Mechanic Relationship Specialty Start Date End Date Jared Nick MD [address] [place] [address] PCP - General Internal Medicine 11/28/21
--- OUTSIDE RECORDS SUMMARY | 2024-08-26 08:38 | XMS_ITS | Clinical Summary ---
Author Organization [facility] Address [address] [place] [id number] Care Team Providers Care Sitecore Developer Name Role Phone Unavailable Primary Care Provider Unavailabl e Social History Tobacco Use Types Packs/Day Years Used Date Smoking Tobacco: Never Assessed Comments Unknown Sex and Gender Information Value Date Recorded Sex Assigned at Not on file Legal Sex Female 5:09 PM CDT Gender Identity Not on file Sexual Orientation Not on file Plan of Treatment Health Maintenance Due Date Last Done Comments Colorectal Cancer Screening Colonoscopy (10 Years) 1950 Hepatitis C 1968 DTaP, Tdap and Td Vaccines ( 1 - Tdap) 1969 Mammogram Screening 1990 Zoster Vaccines (1 of 2) 2000 Dexa Scan (General) 2015 Pneumococcal Vaccine: 65+ Ye ars (1 of 1 - PCV) 2015 COVID-19 Vaccine ( - 2023-2 5 season) 2024 Influenza Adult (#1) 2024 RSV Immunization or 60+ Years (1 - 1-dose 75+ series) 2025 Meningococcal B Vaccine Aged Out No l onger eligible based on patient's age to complete this topic Meningococcal Vaccine Aged Out No rogers gonzales eligible based on patient's age to complete this topic RSV Immunizations Under 20 Months Aged Out No longer eligible based on patient's age to complete this topic
--- OUTSIDE RECORDS SUMMARY | 2024-08-26 08:38 | XMS_ITS | Referral Summary ---
Author Organization [email or web address] Address [address] [place] [place] [address] Care Team Providers Care Butt Sawyer Name Role Phone Rickie Alatorre DO Primary Care Provider [phone] Source Comments [email or web address],non-owned Affiliates and Associated Physician Practices is amultiple site organization consisting of ambulatory clinics and hospital sitesin [place], [place], [place] and [place]. This disclosure is being madepursuant to the Care Everywhere program and may not contain all information available regarding this patient. Last updated 18.[email or web address] Allergies Active Allergy Reactions Criticality Noted Date [...] mouth 2 times daily Active HYDROcodone-acetaminop hen ([place]) 7.5-325 MG tablet Take 1 tablet by mouth as needed for Pain Active Cholecalciferol (Vitamin D) 125 MCG (5000 UT) CAPS Take 5,000 Units by mouth once daily Active Tiotropium [place]-Olodaterol (Stiolto Respimat) 2.5-2.5 MCG/ACT Inhale 1 puff by mouth once daily Active Active Problems Problem Noted Date Diagnosed Date Abdominal aortic aneurysm (AAA) without rupture 03/26/2022 Femoral artery stenosis, right 03/26/2022 Right iliac artery stenosis 03/26/2022 Social History Tobacco Use Types Packs/Day Years [...] 03/26/2022 1:27 PM CDT Plan of Treatment Not on file Care Teams Butt Sawyer Relationship Specialty Start Date End Date Rickie Alatorre DO [address] [place] [address] PCP - General Internal Medicine 03/26/22
--- OUTSIDE RECORDS SUMMARY | 2024-08-26 08:39 | XMS_ITS | Clinical Summary ---
Author Organization [facility] Address [address] [place] [id number] Care Team Providers Care Ed Tech Name Role Phone Jared Nick MD Primary Care Provider [phone] Allergies Active Allergy Reactions Criticality Noted Date [...] RESPIMAT INHAL) Inhale Acti ve vit D3-vit Q-lwbjdvfcs-qmam [id number] adnw-hee-vk-mg tablet Take by mouth Active perindopril (ACEON) [...] disease 12/31/2021 History of tobacco abuse 12/31/2021 Surgical History Surgery Date Site/Laterality Comments TONSILLECTOMY Medical History Medical History Date Comments Hypertension Hyperlipidemia Wears dentures Acid indigestion COPD (chronic obstructive pulmonary disease) (HC C) Pneumonia Family History Medical History Relation Name Comments Colon cancer Father Colon cancer Mother No Known Problems Sister Relation Name Status Comments Father Mother Sister Alive Social History Tobacco Use Types Packs/Day Years Used Date Smoking Tobacco: Former Cigarettes Q uit: 2020 Personal Safety Answer Date Recorded Getting School Help Needed Not on file 09/12 Comments Unknown Sex and Gender Information Value Date Recorded Sex Assigned at Not on file Legal Sex Female 10:48 AM CDT Gender Identity Not on file Sexual Orientation Not on file Obstetrics History Last Filed Vital Signs Vital Sign Reading [...] 12/31/2021 8:05 AM CDT Plan of Treatment Health Maintenance Due Date Last Done Comments Breast Cancer Screening-Mammogram 1950 Colon Cancer Screening-Colonoscopy 1950 Depression Screening 1950 Fall Risk Assessment 1950 Hepatitis C Screening 1950 Osteoporosis Screening-Bone Density Scan 1950 Hepatitis B Screening 1968 Well Visit 65+ 2015 Zoster Vaccine (2 of 3) 02/04/2019 12/10/2018 Pneumococcal vaccine 65+ (2 of 2 - PCV) 12/11/2019 12/10/2018 Covid-19 Vaccine (5 - 2023-2 5 season) 2024 10/30/2021, 04/19/2021, 09/27/2020, Additional history exists Influenza Vaccine (#1) 2024 04/01/2020 DTaP/Tdap/Td Vaccine (2 - Td or Tdap) 12/10/2028 12/10/2018, 12/10/2018 [place] [address] [employer] MEDICARE Care Teams Ed Tech Relationship Specialty Start Date End Date Jared Nick MD [address] [place] [address] PCP - General Internal Medicine 11/28/21
--- OUTSIDE RECORDS SUMMARY | 2024-08-26 08:39 | XMS_ITS | Data Portability ---
Author Organization [place] - [facility], Main Office Address [address] [place] [address] Care Team Providers Care Ic Design Manager Name Role Phone NICOLE BRADEN Primary Care Provider [phone] NICOLE BRADEN Referring Provider [phone] Assessment Encounter Date Assessment Date Assessment LastModified by Organization Details LastModified Time 09/17/2022 09/17/2022 HPI: Patient returns. She is here for cortisone injection left knee. Last shot was 3 months ago and lasted about 2 months. She wished to have additional injections today. She is not ready to talk about surgery on the left knee. She had her right 1 done in February of last year and she still has little bit of symptoms in it at times particularly at night and therefore she is waiting until right feels better before talking about the left. She also had terrible nausea recovering from her total knee due to pain pills anesthesia. Previous x-rays showed severe medial compartment osteoarthritis in left knee. Physical exam 72-year-old female alert pleasant. She has mild effusion left knee. Range motion from 0-135 degrees. She has mild tenderness over the medial joint line palpation. She walks well limp her assistance. No increased swelling in either lower extremity. No pain with patellofemoral grind ChloraPrep was used on the skin 20 mg Kenalog and 3 cc of 0.5% ropivacaine was injected into the left knee. Risk infection discussed. Impression: 72-year-old female who has severe medial compartment osteoarthritis left knee. She is still getting satisfactory improvement from the injections at this point. We will see her back in 3 months repeat injection. 20 minutes was spent in treatment patient than half of this in [id number] conversation Not available 09/17/2022 08:44:34 12/17/2022 12/17/2022 Patient returns requesting another cortisone shot in her left knee. His history of severe me to compartment osteoarthritis left knee is getting cortisone shots every 3 months and to help temporarily. The she had new x-rays left knee today which show [id number] medial compartment osteoarthritis left knee with sclerosis of the medial compartment. There has been a little bit of progression compared to the x-rays that showed her left knee after her Right knee replacement in April of 2002. On exam today she has a trace effusion left range of motion from 3-135 degrees and moderate tenderness over the medial joint line. Patient would like to continue with cortisone shots. She is 10 months after her right knee replacement and she has no discomfort during the day but she still has some aching at night if she moves the wrong way. Hopefully this will continue to improve in study showed continued improvement of soft tissue irritability for 12-18 months after surgery. She would like cortisone shot today in the left knee. Risk of side effects including risk of infection discussed. After ChloraPrep prep, 20 mg of Kenalog and 4 cc of 0.5% ropivacaine were injected the left knee without difficulty. I will see her back in 3 months to assess her progress. Not available 12/17/2022 09:02:01 03/18/2023 03/18/2023 patient returns. She is here for 1 year follow-up after right total knee arthroplasty and also here for cortisone shot left knee which has severe medial compartment osteoarthritis. With respect to her knee replacement, she has no symptoms whatsoever and climb stairs normally active and does not know his any symptoms during the day but, approximately 3 times per week she will notice the pain it seems to be in the center of her right knee and radiates to her ankle and this will force her to either sit up right that does not bring relief she gets out of bed and stands for about 1 minute and then the pain goes away completely. She sleeps on her side usually left side. She has tried sleeping her back on the right side does not seem to alter the symptoms and she has not noticed any change from the symptoms from shortly after the knee replacement. On exam today she has range of motion right knee 0-140 degrees. She has excellent stability in all positions. She has no tenderness about the knee no pain with patellofemoral grind no effusion no warmth. Range of motion of right hip causes no discomfort negative Stinchfield maneuver. She denies any numbness or tingling. Her left knee has a trace effusion today moderate medial joint line tenderness. Impression: 1. Patient is 1 year out after right total knee arthroplasty. She still has pain in the center of her knee wakes her up at night approximately 3 nights per week causing her to either sit up or stand up which brings relief after 1 minute and she is asymptomatic again. She has no symptoms whatsoever during the daytime. Her examination is completely normal. It is hard to know whether this is being referred from some other location. For example, she could have radicular pain that affects her at night that would explain her distribution of symptoms from the Center for knee down to her ankle. Year patient is possible that she is placing her leg in a position that is unusual and she speculates that maybe she holes hyperflexed 1 position for so long that it makes any sore that is possible. There I have discussed with her that she should pay close attention to her symptoms and what seems to aggravated with seems to alleviate it night. If it is from irritation the knee from sleeping with the knee hyperflexed, she may see improvement to 18 months after surgery for that phenomena. For her left knee she would like another cortisone shot today. Risks of complications injection discussed. After ChloraPrep prep, 20 mg of Kenalog and 4 cc of 0.5% ropivacaine were injected into the left knee without difficulty. I will see her back in 3 months to assess her progress. Probable cortisone shot the left knee at that time will ask her how right knee is doing as well. If anything changes the meantime she will call [facility] Not available 03/18/2023 09:19:15 06/17/2023 06/17/2023 The patient has severe primary osteoarthritis left knee joint. At her request under sterile conditions I injected the patient's left knee joint in the office today with 4 cc of 0.5% bupivacaine and 20 mg of Kenalog. Patient tolerated the procedure well. we will see her back as needed she voiced understanding agrees above plan she will call for any further problems difficulties or questions. [email or web address] Not available 06/17/2023 14:39:54 09/16/2023 09/16/2023 Impression: 1. Patient notes anterior knee pain right knee at night time sometimes with pain that seems to radiate proximally and distally at night for the last 2 months. Etiology of this is unclear. I was unable to reproduce her symptoms today. This may be anterior knee soreness associated with overuse compensating for left knee potentially. Also she has been riding a stationary bike which can contribute anterior knee soreness. Is possible that may be from some occult problem causing pain to radiate but clinically the Her exam in the right knee is quite benign. The I have suggested that she try holding off on the exercise bike riding for 1 month and see what happens. She would like cortisone shot left knee they. Risk of side effects including risk of infection discussed. After Betadine and alcohol prep, 20 mg of Kenalog and 4 cc of 0.5% ropivacaine were injected into the left knee without difficulty With respect to her right knee I would like her to monitor her symptoms in her left knee and any other symptoms that might give us more information to help isolate the source of the symptoms which I could not elicit today. I will see her back in 6 weeks assess her progress. If anything changes the meantime she will call 30 minutes were spent total care this patient more than half the time spent in [id number] care. Not available 09/17/2023 13:58:31 Plan of Treatment Reminders Order Date Submit Date Provider Last Modified By Organization Details Last Modified Time Details Appointments None recorded. Lab None recorded. Referral None recorded. Procedures injection/a spiration joint/bursa (PROC) - in office procedure, administere d by provider 2023 024 [email or web address] In-Office Order, Internal Use Only DO Not Attach Compendium DO Not Attach Compendium, Do Not Delete/merge, [id number] 09:49:07 injection/a spiration joint/bursa (PROC) 2022 023 [email or web address] In-Office Order, Internal Use Only DO Not Attach Compendium DO Not Attach Compendium, Do Not Delete/merge, [id number] 3 14:13:18 injection/a spiration joint/bursa (PROC) - in office procedure, administere d by provider 2022 023 [email or web address] In-Office Order, Internal Use Only DO Not Attach Compendium DO Not Attach Compendium, Do Not Delete/merge, [id number] 3 08:41:18 injection/a spiration joint/bursa (PROC) - in office procedure, administere d by provider 2022 023 [email or web address] In-Office Order, Internal Use Only DO Not Attach Compendium DO Not Attach Compendium, Do Not Delete/merge, [id number] 3 08:35:23 injection/a spiration joint/bursa (PROC) - in office procedure, administere d by provider 2022 023 [email or web address] Not available 3 08:36:20 Surgeries None recorded. Imaging XR, knee 2022 023 [facility] [place], [address], [place], [address], 3 12:01:09 XR, knee 2022 023 [facility] [place], [address], [place], [address], 3 16:12:26 Medication Orders Kenalog 10 mg/mL suspension for injection 2023 024 [place] [address] [facility], [address], [place], [place], [id number], 4 14:13:50 ropivacaine (PF) 5 mg/mL (0.5 %) injection solution 2023 [facility]24 [facility], [address], [place], [place], [id number], 4 14:13:50 bupivacaine HCl 0.5 % (5 mg/mL) injection solution 2022 023 [email or web address] [facility] #[facility]222, [address], [place], [place], [id number], 4 09:46:20 Kenalog 10 mg/mL suspension for injection 2022 023 [place] [address] [facility], [address], [place], [place], [id number], 4 09:46:38 Kenalog 10 mg/mL suspension for injection [address] [facility]07, [address], [place], [place], [id number], 4 09:46:38 ropivacaine (PF) 5 mg/mL (0.5 %) injection solution 2022 023 [facility], [address], [place], [place], [id number], 3 12:01:09 Kenalog 10 mg/mL suspension for injection 2022 023 [place] [address] [facility], [address], [place], [place], [id number], 4 09:46:38 ropivacaine (PF) 5 mg/mL (0.5 %) injection solution 2022 023 [facility], [address], [place], [place], [id number], 3 16:12:26 Kenalog 10 mg/mL suspension for injection 2022 023 [email or web address] [facility], [address], [place], [place], [id number], 4 09:46:38 ropivacaine (PF) 5 mg/mL (0.5 %) injection solution 2022 023 [facility], [address], [place], [id number], 3 16:32:10 Patient TargetsNo targets recorded. Patient InstructionsNo instructions recorded. Reason for Referral None Reported. Results Created Date Observation Date Name Description Value Unit Range Abnormal Flag Note LastModifiedBy Organization Detail LastModifiedTime 12/18/19 XR, knee No observ ation record ed. [facility] [place] [address], [place], [address], 12/17/2022 09:02:25 03/18/20 XR, knee No observ ation record ed. [facility] [place] [address], [place], [address], 03/18/2023 09:14:48 Result Notes None recorded. Problems Name Problem SNOMED Code Status Onset Date Resolution Date Notes Provider Name and Address Organization Details Recorded Time Osteoarthr itis of left knee joint 4819841571783 09 Active 2022 NIEVES Li, [place] [employer] [facility] 3 08:35:00 Osteoarthr itis of knee 724157300 Active Not Available [facility] 3 04:52:03 Osteoarthr itis 571669773 Active Not Available [facility] 3 04:52:03 Pain of left knee joint 8533453794341 07 Active 2021 Not Available [facility] 3 04:52:03 Problem Notes None recorded. Procedures Surgical History Date Name Laterality Status Provider Name and Address Organization Details Recorded Time procedure on tonsils completed Not Available [facility] 09/10/2022 04:42:09 Knee Replacement completed Not Available [facility] 09/10/2022 04:42:09 Imaging Results Imaging Date Name Status LastModified by Organ [facility] Details LastModified Time 12/17/2022 XR, knee completed [facility] [place] [address], [place], [address], 12/17/2022 09:02:25 03/18/2023 XR, knee completed [facility] [place] [address], [place], [address], 03/18/2023 09:14:48 Procedure Notes None recorded. Medical Equipment None Reported. Allergies Allergen ID Allergen Name Allergen Category Reaction Reaction Severity Criticality Documentation Date Start Date Code Code System Note Provider Name and Address Organization Details Recorded Time 9043 Substance with sulfonami de structure and antibacte rial mechanism of action (substanc e) medicatio n Not available Not available Not available 09/10/2022 29242 8003 SNOMED Not Available [facility] 3 05:07:47 9044 Celebrex medicatio n hives Not available Not available 09/10/2022 18742 7 RxNorm Not Available [facility] 3 05:07:47 Medications Name Sig Start Date Stop Date Status Note LastModified by Organization Details LastModified Time prednisone 10 mg tablet 09/15 completed Not Available Not Available Not Available rabeprazole 20 mg tablet,lore yed release 05/09 completed Not Available Not Available Not Available doxycycline hyclate 100 mg capsule TAKE 1 CAPSULE BY MOUTH TWICE DAILY 09/15 completed Not Available Not Available Not Available atorvastati n 20 mg tablet TAKE 1 TABLET BY MOUTH DAILY active Not Available Not Available No t Available ipratropium 0.5 mg-albutero l 3 mg (2.5 mg base)/3 mL nebulizatio n soln 11/28 completed Not Available Not Available Not Available azithromyci n 250 mg tablet 05/09 completed Not Available Not Available Not Available valacyclovi r 1 gram tablet 11/28 completed Not Available Not Available Not Available ondansetron HCl 8 mg tablet Take 1 tablet twice a day by oral route. active Not Available Not Available No t Available ibuprofen 200 mg capsule Take 1 capsule every 6 hours by oral route. 04/09 completed Not Available Not Available Not Available bupivacaine HCl 0.5 % (5 mg/mL) injection solution Take 20 mg by injection route. 09/15 completed Not Available Not Available Not Available prednisone 20 mg tablet active Not Available Not Available Not Available perindopril erbumine 4 mg tablet 05/09 completed Not Available Not Available Not Available Nexium 40 mg capsule,del ayed release 05/09 completed Not Available Not Available Not Available amlodipine 5 mg tablet TAKE 1 TABLET BY MOUTH DAILY 09/15 completed Not Available Not Available Not Available prochlorper azine maleate 10 mg tablet 05/09 completed Not Available Not Available Not Available ciprofloxac in 500 mg tablet 05/09 completed Not Available Not Available Not Available doxycycline monohydrate 100 mg tablet TAKE 1 TABLET BY MOUTH TWICE DAILY 09/17 completed Not Available Not Available Not Available meloxicam 7.5 mg tablet TAKE 1 TABLET PO BID active Not Available Not Available No t Available Kenalog 10 mg/mL suspension for injection in office 2023 active [facility]: [phone] Not Available Not Available Not Available hydrocodone 7.5 mg-acetamin ophen 325 mg tablet take 1 tablet q 4hr prn pain active Not Available Not Available No t Available cephalexin 500 mg capsule 05/09 completed Not Available Not Available Not Available pantoprazol e 40 mg tablet,lore yed release TAKE 1 TABLET BY MOUTH EVERY DAY active Not Available Not Available No t Available oseltamivir 75 mg capsule 05/09 completed Not Available Not Available Not Available oxycodone-a cetaminophe n 2.5 mg-325 mg tablet TAKE 1 TABLET BY MOUTH EVERY 8 HOURS FOR 5 DAYS NEEDED FOR PAIN 04/09 completed Not Available Not Available Not Available azelastine 137 mcg (0.1 %) nasal spray USE 1 SPRAY IN EACH NOSTRIL EVERY 12 HOURS 09/15 completed Not Available Not Available Not Available prednisone 5 mg tablets in a dose pack TAKE BY MOUTH PER PACKAGE DIRECTION S 11/28 completed Not Available Not Available Not Available ibuprofen 600 mg tablet 05/09 completed Not Available Not Available Not Available levofloxaci n 500 mg tablet 02/28 completed Not Available Not Available Not Available methylpredn isolone 4 mg tablets in a dose pack FOLLOW PACKAGE DIRECTION S 09/15 completed Not Available Not Available Not Available albuterol sulfate HFA 90 mcg/actuati on aerosol inhaler INHALE 2 PUFFS BY MOUTH EVERY 4 HOURS NEEDED 09/15 completed Not Available Not Available Not Available Vitamin D2 1,250 mcg (50,000 unit) capsule 06/11 completed Not Available Not Available Not Available cefdinir 300 mg capsule TAKE 1 CAPSULE BY MOUTH EVERY 12 HOURS 09/15 completed Not Available Not Available Not Available fluticasone propionate 50 mcg/actuati on nasal spray,suspe nsion SHAKE LIQUID AND USE 2 SPRAYS IN EACH NOSTRIL DAILY 09/15 completed Not Available Not Available Not Available loratadine 10 mg tablet TK 1 T PO D PRF ALLERGY SYMPTOMS active Not Available Not Available No t Available naproxen 500 mg tablet TAKE 1 TABLET BY MOUTH TWICE DAILY FOR 7 DAYS NEEDED FOR PAIN 04/09 completed Not Available Not Available Not Available perindopril erbumine 8 mg tablet TAKE 1 TABLET BY MOUTH DAILY active Not Available Not Available No t Available amoxicillin 875 mg-potassiu m clavulanate 125 mg tablet TAKE 1 TABLET BY MOUTH EVERY 12 HOURS 03/18 completed Not Available Not Available Not Available oxycodone 5 mg tablet TAKE 1 TABLET BY MOUTH EVERY 4 HOURS 04/09 completed Not Available Not Available Not Available Boostrix Tdap 2.5 Lf unit-8 mcg-5 Lf/0.5 mL intramuscul ar syringe 05/29 completed Not Available Not Available Not Available doxycycline hyclate 100 mg tablet,lore yed release TAKE 1 TABLET BY MOUTH DAILY FOR 14 DAYS 11/28 completed Not Available Not Available Not Available ibuprofen 05/29 completed Not Available Not Available Not Available lidocaine (PF) 10 mg/mL (1 %) injection solution In office injection administe red by the provider 11/27 completed [facility]: [phone] Not Available Not Available Not Available Zostavax (PF) 19,400 unit/0.65 mL subcutaneou s suspension 05/09 completed Not Available Not Available Not Available GaviLyte-N 420 gram oral solution 05/09 completed Not Available Not Available Not Available Prevnar 13 (PF) 0.5 mL intramuscul ar syringe 05/29 completed Not Available Not Available Not Available Dexilant 30 mg capsule, delayed release 05/09 completed Not Available Not Available Not Available sodium,pota ssium,mag sulfates 17.5 gram-3.13 gram-1.6 gram oral soln MIX AND DRINK DIRECTED active Not Available Not Available No t Available ropivacaine (PF) 5 mg/mL (0.5 %) injection solution in office 2023 active [facility] [phone] Not Available Not Available Not Available Chantix Starting Month Box 0.5 mg (11)-1 mg (42) tablets in dose pack TAKE BY MOUTH PER PACKAGE DIRECTION S 02/27 completed Not Available Not Available Not Available Prepopik 10 mg-3.5 gram-12 gram oral powder packet 05/09 completed Not Available Not Available Not Available Eliquis 2.5 mg tablet Take by oral route for 13 days. active Not Available Not Available No t Available Stimulant Laxative Plus 8.6 mg-50 mg tablet TAKE 2 TABLETS BY MOUTH TWICE DAILY 04/09 completed Not Available Not Available Not Available ProAir RespiClick 90 mcg/actuati on breath activated INHALE 2 PUFFS BY MOUTH EVERY 4 TO 6 HOURS NEEDED FOR SHORTNESS OF BREATH 09/15 completed Not Available Not Available Not Available Stiolto Respimat 2.5 mcg-2.5 mcg/actuati on solution for inhalation INHALE 2 PUFFS BY MOUTH DAILY active Not Available Not Available No t Available perindopril arginine 7 mg-amlodipi ne 5 mg tablet Take 1 tablet every day by oral route. 05/29 completed Not Available Not Available Not Available Shingrix (PF) 50 mcg/0.5 mL intramuscul ar suspension, kit 02/28 completed Not Available Not Available Not Available Fluad Quad (6 5yr up)(PF) 60 mcg (15 mcg x 4)/0.5mL IM syringe ADM 0.5ML IM UTD 05/30 completed Not Available Not Available Not Available Vitals Date Recorded Body height Provider Name an d Address Organization Details Last Updated DateTime 09/17/2022 157.48 cm NIEVES Li [place] [facility] 09/17/2022 08:33:24 Date Recorded Body height Provider Name an d Address Organization Details Last Updated DateTime 12/17/2022 157.48 cm Dara Wallace Daniel [facility] 12/17/2022 08:33:00 Date Recorded Body height Provider Name an d Address Organization Details Last Updated DateTime 03/18/2023 157.48 cm Dara Wallace Daniel [facility] [employer] [facility] 03/18/2023 08:37:36 Date Recorded Body height Provider Name an d Address Organization Details Last Updated DateTime 06/17/2023 157.48 cm Tammie Webb [facility] 06/17/2023 14:10:59 Date Recorded Body height Body mass index (BMI) Body weight Provider Name and Address Organization Details Last Updated DateTime 09/16/2023 157.48 cm 24 kg/m2 75239.6 g Dara Wallace Daniel [facility] [employer] [facility] 09/16/2023 09:55:00 Social History Question Answer Notes LastModified by Organizat ion Details LastModified Time Tobacco Smoking Status Never Smoker Not Available [facility] 09/10/2022 04:19:28 What Is Your Level Of Alcohol Consumption? None [id number] Information not available 09/10/2022 Sex: Unknown Functional Status None recorded. Mental Status None recorded. Family History Relationship Description Onset Age of this Age Resolved Age Notes LastModified by Organization Details LastModified Time Father Family history of malignant neoplasm [id number] Not available 09/10/2022 04:42:12 Father Hypertensive disorder [id number] Not available 09/10/2022 04:42:12 Mother Family history of malignant neoplasm [id number] Not available 09/10/2022 04:42:12 Mother Hypertensive disorder [id number] Not available 09/10/2022 04:42:12 Medical History Condition Response BLINDNESS N KIDNEY STONES N MRSA N CARPAL TUNNEL SYNDROME N LUNG DISEASE/DISORDER N HISTORY OF DRUG ABUSE N RADIATION / CHEMOTHERAPY N COPD Y SPORTS INJURY N ANKLE PAIN N BLOOD DISEASES N SCHIZOPHRENIA N SHINGLES N BOWEL PROBLEMS N SHOULDER PAIN N DEPRESSION (INCLUDING POST ) N STROKE/TIA N KNEE PAIN N ULCERS N BENIGN PROSTATIC HYPERPLASIA N OBESITY N GERD/NAUSEA N ANEURYSM N URINARY/BLADDER/KIDNEY PROBLEMS N CORONARY ARTERY DISEASE (CAD) N ADDICTION CONCERNS N USE OF BLOOD THINNERS N SKIN PROBLEMS N EMPHYSEMA N MUSCLE,JOINT OR BONE PROBLEMS N DVT N STOMACH ULCERS N BLOOD CLOTS N USE OF NSAIDS N CONCUSSION OR SPINAL TRAUMA N NEUROPATHY N AIDS/HIV N FRACTURES N ELBOW PAIN N HYPERTENSION Y TOURETTE'S N ANXIETY DISORDER N Metal allergy N BLOOD TRANSFUSION N ANEMIA/BLOOD DISORDER N BIPOLAR DISORDER N BRONCHITIS N OSTEOARTHRITIS N TUBERCULOSIS N FOOT PROBLEM N HEART VALVE DISORDERS N ALLERGIES/HAYFEVER N SOFT TISSUE INJURY N INFECTIOUS DISEASE N HEART ARRHYTHMIA N INSOMNIA N RHEUMATOID ARTHRITIS N HIGH CHOLESTEROL / HYPERLIPIDEMIA N EDEMA N CHRONIC PAIN SYNDROME N CAROTID BLOCKAGE N BACK / NECK PROBLEMS N HAVE YOU BEEN HOSPITALIZED OR SEEN IN [facility] IN THE PAST YEAR ? N BURSITIS N HERNIATED DISC N DIALYSIS N FIBROMYALGIA N OSTEOPOROSIS N ARTHRITIS Y NO SIGNIFICANT PAST MEDICAL HISTORY N PERIPHERAL NEUROPATHY N DIABETES, TYPE N HEARTBURN / REFLUX N HEPATITIS / LIVER DISEASE N GOUT N SLEEP DISORDER N ALZHEIMER'S DISEASE N HERPES N SEIZURES/EPILEPSY N HEADACHES/MIGRAINES N VASCULAR DISEASE N HIP PAIN N Blood Disorder N DIZZINESS N HEAD TRAUMA OR INJURY N HEART DISEASE/HEART PROBLEMS N MULTIPLE SCLEROSIS N CARDIAC ARRHYTHMIA N CANCER: SPECIFY N ANESTHESIA COMPLICATIONS N ATRIAL FIBRILLATION N AUTOIMMUNE DISEASE N Gynecological HistoryNo gynecological history recorded. Obstetrics History GPAL:G 0 P 0 0 0 0 Past Encounters Encounter ID Performer Location Encounter Start Date Encounter Closed Date Diagnosis/Indication Diagnosis SNOMED-CT Code Diagnosis ICD10 Code Diagnosis Note [id number] [facility] [address] [facility] [address] [place] [address] 11/28/2020 00:00:00 11/28/2020 09:22:22 [id number] [facility] [address] [facility] [address] [place] [address] 02/27/2021 00:00:00 02/27/2021 09:10:43 [id number] [facility] [address] [facility] [place] [address] 05/29/2021 00:00:00 05/29/2021 09:14:04 [id number] [facility] [address] [facility] [address] [place] [address] 08/28/2021 00:00:00 08/28/2021 09:08:28 [id number] [facility] [address] [place] [address] 11/27/2021 00:00:00 11/28/2021 11:13:24 [id number] [facility] [address] [place] [address] 03/26/2022 00:00:00 03/26/2022 09:08:19 [id number] [facility] [address] [place] [address] 04/09/2022 00:00:00 04/09/2022 08:59:37 [id number] [facility] [address] [place] [address] 04/23/2022 00:00:00 04/23/2022 09:28:11 [id number] [facility] [address] [place] [address] 06/11/2022 00:00:00 06/11/2022 09:20:35 [id number] JENNIFER Sena [facility] [address] [place] [address] 09/17/2022 08:29:28 09/17/2022 08:45:55 Osteoarthritis of left knee joint [id number] 13634 M17.12 [id number] Chacorta Dunlap MD [facility] [address] [place] [address] 12/17/2022 08:29:28 12/17/2022 09:09:55 Osteoarthritis of left knee joint [id number] 77274 M17.12 [id number] Chacorta Dunlap MD [facility] [address] [place] [address] 03/18/2023 08:33:10 03/18/2023 09:24:01 History of right total knee replacement [id number] Z96.651 Osteoarthr itis of left knee joint 8933285375 40097 M17.12 [id number] JENNIFER Vanessa [facility] [address] [place] [address] 06/17/2023 14:06:51 06/17/2023 14:34:25 Osteoarthritis of left knee joint [id number] 94604 M17.12 History of right total knee replacement [id number] 517371 Z96.671 [id number] Chacorta Dunlap MD [facility] [address] [place] [address] 09/16/2023 09:17:38 09/17/2023 14:54:27 Osteoarthritis of left knee joint [id number] 92549 M17.12 Health Concerns Section Related Observation LastModified by Organization Detai ls LastModified Time None Recorded Concern Status LastModified by Organization Details LastModified Time None Recorded Advance Directives Directive None Recorded Payers Encounter Date Sequence Insurance Name Policy Number Policy Arce Covered Member ID Arce Member ID Guarantor Name 09/17/2022 1 [facility] - [employer] - [employer] - MEDICARE COMPLETE PLAN 2 (MEDICARE REPLACEMENT HMO) [id number] Delilah Baltazar [id number] Delilah Baltazar 12/17/2022 1 [facility] - [employer] - [employer] - MEDICARE COMPLETE PLAN 2 (MEDICARE REPLACEMENT HMO) [id number] Delilah Baltazar [id number] Delilah Baltazar 03/18/2023 1 [facility] - [employer] - [employer]URE [employer] - MEDICARE COMPLETE PLAN 2 (MEDICARE REPLACEMENT HMO) [id number] Delliah Baltazar [id number] Delilah Baltazar 06/17/2023 1 [facility] - AARP - SECURE [facility] - MEDICARE COMPLETE PLAN 2 (MEDICARE REPLACEMENT HMO) [id number] Delilah Baltazar [id number] Delilah Baltazar 09/16/2023 1 [employer] (MEDICARE REPLACEMENT PPO) [id number] Delilah Baltazar [id number] Delilah Baltazar Notes Date Note Type Note Provider Name and Address Organization Details Recorded Time 06/17/2023 text/html Patient returns with left knee pain she has had a previous right total knee arthroplasty this is being followed by Dr. Dunlap in the meantime her left knee continues to bother her she has severe medial compartment osteoarthritis with mubp-ts-jlfv changes left knee. It has been 3 months since she has had a shot of cortisone this does help quite a bit. The left knee limits her somewhat she cannot stand or walk for long periods. She has aching pain she states is about a 7 on a scale 1-10 denies any effusion or swelling no erythema heat or other signs of infection no new symptoms or complaints she would like another shot of cortisone today. JENNIFER Vanessa [address], [facility] [address], [place], [address], [email or web address] 06/17/2023 14:40:18 09/16/2023 text/html Patient returns. She would like to have another cortisone shot in her left knee. She has xwyu-pq-qgmb medial compartment osteoarthritis her left knee. Her last shot was 3 months ago and help for about 2 months and over the last month her symptoms have returned. The her left knee hurts during the day with activity. She also complains that her right knee hurts at night time only. It never hurts during the day. She underwent right knee replacement approximately 18 months ago on 03/03/2022 for severe medial compartment osteoarthritis. Approximately 2 months ago she started feeling pain from the anterior knee to the medial ankle and anterolateral thigh to the anterolateral hip. She has been walking 15 20 minutes a day and riding a stationary bike 15 minutes a day for exercise to stabilize her COPD symptoms. She complains that when she 1st gets up in the morning for about a minute she has a lot of soreness in the front of her knee and she will feel this at night sometimes if she gets up another night. She has been taking ibuprofen 600 mg 3 times a day for years. She has regular testing in which show her liver and kidney function is normal. I reviewed her x-rays from March 18, 2023 which showed normal appearing total knee replacement on the right without radiographic complication and ytdw-bo-fonb medial compartment osteoarthritis left knee. Chacorta Dunlap MD [address], [facility] [address], [place], [address], [email or web address] 09/17/2023 13:58:47 OBGyn Episode No OBEpisode recorded.
--- OUTSIDE RECORDS SUMMARY | 2024-08-26 08:39 | XMS_ITS | Patient Health Summary ---
Author Organization [facility] Address [address] [place] [address] Care Team Providers Care Cereal Miller Name Role Phone Rickie Alatorre DO Primary Care Provider [phone] Note from [facility],non-owned Affiliates and Associated Physician Practices is amultiple site organization consisting of ambulatory clinics and hospital sitesin [place], [place], [place] and [place]. This disclosure is being madepursuant to the Care Everywhere program and may not contain all information available regarding this patient. Last updated 18.[facility] Allergies * Celecoxib(Urticaria) -Medium Criticality * Levofloxacin(Itching) * Sulfa Drugs(Other) -Low Criticality Medications * Be aware that medications may not be up to date on this document. Alwaysverify current medications with the patient. * atorvastatin (Lipitor) 20 MG tablet Take 20 mg by mouth at bedtime * pantoprazole EC (Protonix) 40 MG tablet Take 40 mg by mouth once daily * amLODIPine (Norvasc) 5 MG tablet Take 5 mg by mouth once daily * Perindopril Erbumine 8 MG Take 8 mg by mouth once daily * meloxicam (Mobic) 7.5 MG tablet Take 7.5 mg by mouth once daily * ondansetron (Zofran) 8 MG tablet Take 8 mg by mouth 2 times daily * apixaban (Eliquis) 2.5 MG tablet Take 2.5 mg by mouth 2 times daily * HYDROcodone-acetaminophen ([place]) 7.5-325 MG tablet Take 1 tablet by mouth as needed for Pain * Cholecalciferol (Vitamin D) 125 MCG (5000 UT) CAPS Take 5,000 Units by mouth once daily * Tiotropium [place]-Olodaterol (Stiolto Respimat) 2.5-2.5 MCG/ACT Inhale 1 puff by mouth once daily Active Problems Problem Noted Date Diagnosed Date [...] Mass Index 22.31 03/26/2022 1:27 PM CDT Care Teams Cereal Miller Relationship Specialty Start Date End Date Rickie Alatorre DO [address] [place] [address] PCP - General Internal Medicine 03/26/22
--- NOTE | 2024-08-26 08:58 | ECG_ITS ---
Test Date: 2024-08-26 09:12:00 Measurements Intervals [place] Rate: 70 P: 78 GA: 169 QRS: 58 QRSD: 94 T: 7 QT: 370 QTc: 402 Interpretive Statements SINUS RHYTHM BORDERLINE ST-T WAVE ABNORMALITY- INFERIOR LEADS BASELINE ARTIFACT- I, II, III, AVR, AVL, AVF, V1-V6 BORDERLINE ECG No previous ECG available for comparison Electronically Signed On 08-26-2024 10:02:09 SENIOR VICE PRESIDENT & GENERAL COUNSEL by Giorgio Jay D.O.
[2024-08-26 09:17] LABS: Add Urine Microscopic? YES; Appearance Urine Cloudy (Clear); Bacteria Urine 4+ /hpf; Bilirubin Urine Negative (Negative); Blood Urine Negative (Negative); Color Urine Yellow (Yellow); Glucose Urine UA Negative (Negative); Ketones Urine Negative (Negative); Leukocyte Esterase Ur 2+ LEU/UL (Negative); Need Manual Microscopic Reviewed; Nitrate Urine Negative (Negative); Protein Urine Negative (Negative); RBC Urine 0-2 /hpf (0-2); Specific Grav Ur 1.023 (1.001-1.035); Squamous Epithelial Cell Urine Many /hpf (Few); Urobilinogen Urine 0.2 mg/dL (<2.0); WBC Urine 21-50 /hpf (0-3)
[2024-08-26 09:44] LABS: Basophils Absolute Auto 0.1 K/mm3 (0.0-0.1); Basophils Percent Auto 0.9 % (0.2-1.2); Eosinophils Absolute Auto 0.2 K/mm3 (0-0.3); Eosinophils Percent Auto 3.8 % (0-4.4); Hematocrit 40.5 % (37.0-47.0); Hemoglobin 12.6 g/dL (12.0-15.0); Immature Granulocyte Absolute 0.02 K/mm3 (0.00-0.031); Immature Granulocyte Percent A 0.3 % (0-0.5); Lymphocytes Absolute Auto 1.33 K/mm3 (0.9-3.2); Lymphocytes Percent Auto 22.9 % (18.3-44.2); Mean Corpuscular HGB Conc 31.1 g/dl (32-36); Mean Corpuscular Hemoglobin 30.1 pg (26-34); Mean Corpuscular Volume 96.7 fl (80-100); Mean Platelet Volume 10.9 fl (7.4-10.4); Monocytes Absolute Auto 0.8 K/mm3 (0.1-0.6); Neutrophils Absolute Auto 3.4 K/mm3 (1.3-6.7); Neutrophils Percent Auto 58.1 % (45.5-73.1); Platelet Count Result 238 k/mm3 (150-375); Red Blood Count 4.19 M/mm3 (4.2-5.4); White Blood Count 5.8 K/mm3 (4.5-10.0)
[2024-08-26 09:57] LABS: Anion Gap 11 mmol/L (4-12); Blood Urea Nitrogen 24 mg/dL (7-17); Calcium 9.4 mg/dL (8.4-10.2); Carbon Dioxide 27 mmol/L (22-30); Chloride 101 mmol/L (98-107); Estimated Glomerular Filt Rate > 60; Glucose 86 mg/dL (65-110); Potassium 4.3 mmol/L (3.4-5.0); Sodium 139 mmol/L (137-145)
== END 2024-08-26 08:33 | disposition home or self-care (01) ==
LOC: ANHLAB 08:34
PROVIDERS: PCP Nurse Practitioner; Visit Provider Orthopaedic Surgery
DX: J43.9 Emphysema, unspecified (principal); E78.2 Mixed hyperlipidemia; I10 Essential (primary) hypertension; R53.83 Other fatigue; Z79.01 Long term (current) use of anticoagulants
CPT/HCPCS: 36415; 80048; 81001; 85025; 93005

== ENCOUNTER 2024-10-13 11:09 | Outpatient (CLI) | payer MEDICARE, SELFPAY ==
--- OUTSIDE RECORDS SUMMARY | 2024-10-13 12:04 | XMS_ITS | Referral Summary ---
Author Organization [facility] Address [address] [place] [address] Care Team Providers Care Posting Machine Operator Name Role Phone Jared Nick MD Primary Care Provider [phone] Allergies Active Allergy Reactions Criticality Noted Date [...] RESPIMAT INHAL) Inhale Acti ve vit D3-vit G-afzetodew-mbqx [id number] tsub-jlu-tn-mg tablet Take by mouth Active perindopril (ACEON) [...] Plan of Treatment Not on file Insurance DUAL COMPLETE OOS [id number] [place] [facility] MEDICARE Care Teams Posting Machine Operator Relationship Specialty Start Date End Date Jared Nick MD [address] [facility] [address] [place] [address] PCP - General Internal Medicine 11/28/21
--- OUTSIDE RECORDS SUMMARY | 2024-10-13 12:04 | XMS_ITS | Data Portability ---
Author Organization [place] [facility] [employer], Main Office Address [address] [place] [address] Care Team Providers Care Bowling Ball Assembler Name Role Phone NICOLE BRADEN Primary Care Provider NICOLE BRADEN Referring Provider [phone] Assessment Encounter Date Assessment Date Assessment LastModified [...] treatment patient than half of this in kkim-pl-vtaq conversation Not available 09/17/2022 08:44:34 12/17/2022 12/17/2022 Patient returns requesting another cortisone shot in her left knee. His history of severe me to compartment osteoarthritis left knee is getting cortisone shots every 3 months and to help temporarily. The she had new x-rays left knee today which show jzkq-ws-wqro medial compartment osteoarthritis left knee with sclerosis [...] anything changes the meantime [facility] [place] [facility] Not available 03/18/2023 09:19:15 06/17/2023 06/17/2023 The [...] more than half the time spent in xfam-cb-jrkw care. Not available 09/17/2023 13:58:31 Plan of Treatment Reminders Order Date Submit Date Provider Last Modified By Organization Details Last Modified Time Details Appointments None recorded. Lab None recorded. Referral None recorded. Procedures injection/a spiration joint/bursa (PROC) - in office procedure, administere d by provider 2023 024 [email or web address] In-Office Order, Internal Use Only DO Not Attach Compendium DO Not Attach Compendium, Do Not Delete/merge, [id number] 09:49:07 injection/a spiration joint/bursa (PROC) 2022 023 [email or web address] In-Office Order, Internal Use Only DO Not Attach Compendium DO Not Attach Compendium, Do Not Delete/merge, [id number] 3 14:13:18 injection/a spiration joint/bursa (PROC) - in office procedure, administere d by provider 2022 023 [email or web address] In-Office Order, Internal Use Only DO Not Attach Compendium DO Not Attach Compendium, Do Not Delete/merge, [id number] 3 08:41:18 injection/a spiration joint/bursa (PROC) - in office procedure, administere d by provider 2022 023 [email or web address] In-Office Order, Internal Use Only DO Not Attach Compendium DO Not Attach Compendium, Do Not Delete/merge, [id number] 3 08:35:23 injection/a spiration joint/bursa (PROC) - in office procedure, administere d by provider 2022 023 [email or web address] Not available 3 08:36:20 Surgeries None recorded. Imaging XR, knee 2022 023 [facility] [place], [address], [place], [address], 3 12:01:09 XR, knee 2022 023 [facility] [place], [address], [place], [address], 3 16:12:26 Medication Orders Kenalog 10 mg/mL suspension for injection 2023 024 [place] [address] [facility] #45950, [address], [place], [place], [id number], 4 14:13:50 ropivacaine (PF) 5 mg/mL (0.5 %) injection solution 2023 024 [facility] #[facility], [address], [place], [place], [id number], 4 14:13:50 bupivacaine HCl 0.5 % (5 mg/mL) injection solution 2022 023 [email or web address] [facility] #95227, [address], [place], [place], [id number], 4 09:46:20 Kenalog 10 mg/mL suspension for injection 2022 023 [place] [address] [facility], [address], [place], [place], [id number], 4 09:46:38 Kenalog 10 mg/mL suspension for injection 2022 [address] [facility] [facility] #68882, [address], [place], [place], [id number], 4 09:46:38 ropivacaine (PF) 5 mg/mL (0.5 %) injection solution 2022 023 [facility], [address], [place], [place], [id number], 3 12:01:09 Kenalog 10 mg/mL suspension for injection 2022 023 [place] [address] [facility], [address], [place], [place], [id number], 4 09:46:38 ropivacaine (PF) 5 mg/mL (0.5 %) injection solution 2022 023 [facility], [address], [place], [place], [id number], 3 16:12:26 Kenalog 10 mg/mL suspension for injection 2022 023 [email or web address] [facility] #17418, [address], [place], [place], [id number], 4 09:46:38 ropivacaine (PF) 5 mg/mL (0.5 %) injection solution 2022 023 [facility], [address], [place], [id number], 3 16:32:10 Patient TargetsNo targets recorded. Patient InstructionsNo instructions recorded. Reason for Referral None Reported. Results Created Date Observation Date Name Description Value Unit Range Abnormal Flag Note LastModifiedBy Organization Detail LastModifiedTime 12/18/19 XR, knee No observ ation record ed. [facility] [place] [address], [place], [address], 12/17/2022 09:02:25 03/18/20 XR, knee No observ ation record ed. [facility] [place] [address], [place], [address], 03/18/2023 09:14:48 Result Notes None recorded. Problems Name Problem SNOMED Code Status Onset Date Resolution Date Notes Provider Name and Address Organization Details Recorded Time Osteoarthr itis of left knee joint 1332633664090 09 Active 2022 NIEVES Li[place] [facility] [facility] 3 08:35:00 Osteoarthr itis of knee 377828437 Active Not Available [facility] 3 04:52:03 Osteoarthr itis 406851450 Active Not Available [facility] 3 04:52:03 Pain of left knee joint 5366191264295 07 Active 2021 Not Available [facility] 3 04:52:03 Problem Notes None recorded. Procedures Surgical History Date Name Laterality Status Provider Name and Address Organization Details Recorded Time procedure on tonsils completed Not Available [facility] 09/10/2022 04:42:09 Knee Replacement completed Not Available [facility] 09/10/2022 04:42:09 Imaging Results Imaging Date Name Status [facility]Modified by [facility] Details LastModified Time 12/17/2022 XR, knee completed [facility] [place] [address], [place], [address], 12/17/2022 09:02:25 03/18/2023 XR, knee completed [facility] [place] [address], [place], [address], 03/18/2023 09:14:48 Procedure Notes None recorded. Medical Equipment None Reported. Allergies Allergen ID Allergen Name Allergen Category Reaction Reaction Severity Criticality Documentation Date Start Date Code Code System Note Provider Name and Address Organization Details Recorded Time 9043 Substance with sulfonami de structure and antibacte rial mechanism of action (substanc e) medicatio n Not available Not available Not available 09/10/2022 79400 8003 SNOMED Not Available [facility] 3 05:07:47 9044 Celebrex medicatio n hives Not available Not available 09/10/2022 27508 7 RxNorm Not Available [facility] 3 05:07:47 Medications Name Sig Start Date [...] suspension for injection in office 2023 active [facility]: 0003- 0494- 20 Not Available Not Available [...] administe red by the provider 11/27 completed [facility]: 0409- 4276- 17 Not Available Not Available [...] %) injection solution in office 2023 active [facility] 39931 -064- 01 Not Available Not Available Not [...] 09/17/2022 157.48 cm NIEVES Li [place] [facility] [employer] 09/17/2022 08:33:24 Date Recorded Body height Provider Name an d Address Organization Details Last Updated DateTime 12/17/2022 157.48 cm Dara Wallace Daniel [facility] 12/17/2022 08:33:00 Date Recorded Body height Provider Name an d Address Organization Details Last Updated DateTime 03/18/2023 157.48 cm Dara Wallace Daniel [facility] [employer] [facility] 03/18/2023 08:37:36 Date Recorded Body height Provider Name an d Address Organization Details Last Updated DateTime 06/17/2023 157.48 cm Tammie Webb [facility] 06/17/2023 14:10:59 Date Recorded Body height Body mass index (BMI) Body weight Provider Name and Address Organization Details Last Updated DateTime 09/16/2023 157.48 cm 24 kg/m2 72827.6 g Dara Wallace Daniel [facility] [employer] [facility] 09/16/2023 09:55:00 Social History Question Answer Notes LastModified by Organizat ion Details LastModified Time Tobacco Smoking Status Never Smoker Not Available [facility] 09/10/2022 04:19:28 What Is Your Level Of Alcohol Consumption? None [id number] Information not available 09/10/2022 Sex: Unknown Functional Status None recorded. Mental Status None recorded. Family History Relationship Description Onset Age of this Age Resolved Age Notes LastModified by Organization Details LastModified Time Father Family history of malignant neoplasm [id number] Not available 09/10/2022 04:42:12 Father Hypertensive disorder [id number].721 [id number] Not available 09/10/2022 04:42:12 Mother Family history of malignant neoplasm [id number].977 [id number] Not available 09/10/2022 04:42:12 Mother Hypertensive disorder [id number].193 [id number] Not available 09/10/2022 04:42:12 Medical History Condition [...] HAVE YOU BEEN HOSPITALIZED OR SEEN IN [facility] ER IN THE PAST YEAR ? N [...] SNOMED-CT Code Diagnosis ICD10 Code Diagnosis Note [id number] [facility] [place] [address] [facility] [address] [place] [address] 11/28/2020 00:00:00 11/28/2020 09:22:22 [id number] [facility] [place] [address] [facility] [address] [place] [address] 02/27/2021 00:00:00 02/27/2021 09:10:43 [id number] [facility] [place] [address] [facility] [place] [address] 05/29/2021 00:00:00 05/29/2021 09:14:04 [id number] [facility] [place] [address] [facility] [address] [place] [address] 08/28/2021 00:00:00 08/28/2021 09:08:28 [id number] [facility] [place] [address] [place] [address] 11/27/2021 00:00:00 11/28/2021 11:13:24 [id number] [facility] [place] [address] [place] [address] 03/26/2022 00:00:00 03/26/2022 09:08:19 [id number] [facility] [place] [address] [place] [address] 04/09/2022 00:00:00 04/09/2022 08:59:37 [id number] [facility] [place] [address] [place] [address] 04/23/2022 00:00:00 04/23/2022 09:28:11 [id number] [facility] [place] [address] [place] [address] 06/11/2022 00:00:00 06/11/2022 09:20:35 [id number] JENNIFER Sena [facility] [place] [address] [place] [address] 09/17/2022 08:29:28 09/17/2022 08:45:55 Osteoarthritis of left knee joint 1131371855 06198 M17.12 [id number] Chacorta Dunlap MD [facility] [place] [address] [place] [address] 12/17/2022 08:29:28 12/17/2022 09:09:55 Osteoarthritis of left knee joint 5896427601 64451 M17.12 [id number] Chacorta Dunlap MD [facility] [place] [address] [place] [address] 03/18/2023 08:33:10 03/18/2023 09:24:01 History of right total knee replacement 4119773151 128305 Z96.651 Osteoarthr itis of left knee joint 1102523215 90511 M17.12 [id number] JENNIFER Vanessa [facility] [place] [address] [place] [address] 06/17/2023 14:06:51 06/17/2023 14:34:25 Osteoarthritis of left knee joint 0738871552 13484 M17.12 History of right total knee replacement 6391734779 472063 Z96.722 [id number] Chacorta Dunlap MD [facility] [place] [address] [place] [address] 09/16/2023 09:17:38 09/17/2023 14:54:27 Osteoarthritis of left knee joint 0855797060 16376 M17.12 Health Concerns Section Related Observation LastModified by Organization Detai ls LastModified Time None Recorded Concern Status LastModified by Organization Details LastModified Time None Recorded Advance Directives Directive None Recorded Payers Encounter Date Sequence Insurance Name Policy Number Policy Arce Covered Member ID Arce Member ID Guarantor Name 09/17/2022 1 [facility] - [employer] - [employer] - MEDICARE COMPLETE PLAN 2 (MEDICARE REPLACEMENT HMO) [id number] Delilah Baltazar [id number] Delilah Baltazar 12/17/2022 1 [facility] - [employer] - [employer]URE [employer] - MEDICARE COMPLETE PLAN 2 (MEDICARE REPLACEMENT HMO) [id number] Delilah Baltazar [id number] Delilah Baltazar 03/18/2023 1 [facility] - [employer] - [employer]URE [employer] - MEDICARE COMPLETE PLAN 2 (MEDICARE REPLACEMENT HMO) [id number] Delilah Baltazar [id number] Delilah Baltazar 06/17/2023 1 [facility] - [employer] - [employer]URE [employer] - MEDICARE COMPLETE PLAN 2 (MEDICARE REPLACEMENT HMO) [id number] Delilah Baltazar [id number] [id number] Delilah Baltazar 09/16/2023 1 [employer] (MEDICARE REPLACEMENT PPO) [id number] Delilah Baltazar [id number] Delilah Baltazar Notes Date Note Type Note Provider Name and Address Organization Details Recorded Time 06/17/2023 text/html Patient returns with left knee pain she has had a previous right total knee arthroplasty this is being followed by Dr. Dunlap in the meantime her left knee continues to bother her she has severe medial compartment osteoarthritis with iyyu-sd-xvmt changes left knee. It has been 3 [...] shot of cortisone today. JENNIFER Vanessa [address] [facility], [facility] [address], [place], [address], [employer] 06/17/2023 14:40:18 09/16/2023 text/html Patient returns. She would like to have another cortisone shot in her left knee. She has wibe-qd-reot medial compartment osteoarthritis her left knee. Her [...] on the right without radiographic complication and mouh-ld-bcby medial compartment osteoarthritis left knee. Chacorta Dunlap MD [address], [place], [address], [employer] 09/17/2023 13:58:47 OBGyn Episode No OBEpisode recorded.
--- OUTSIDE RECORDS SUMMARY | 2024-10-13 12:04 | XMS_ITS | Clinical Summary ---
Author Organization [facility] Address [address] [place] [address] Care Team Providers Care Licensing And Registration Director Name Role Phone Rickie Alatorre DO Primary Care Provider [phone] Source Comments [facility],non-owned Affiliates and Associated Physician Practices is amultiple site organization consisting of ambulatory clinics and hospital sitesin [place], [place], [place] and [place]. This disclosure is being madepursuant to the Care Everywhere program and may not contain all information available regarding this patient. Last updated 18.[facility] Allergies Active Allergy Reactions Criticality Noted Date [...] mouth 2 times daily Active HYDROcodone-acetaminop hen ([place]) 7.5-325 MG tablet Take 1 tablet by mouth as needed for Pain Active Cholecalciferol (Vitamin D) 125 MCG (5000 UT) CAPS Take 5,000 Units by mouth once daily Active Tiotropium [place]-Olodaterol (Stiolto Respimat) 2.5-2.5 MCG/ACT Inhale 1 puff [...] to complete this topic MENINGOCOCCAL (Group B) VACC INE SHARED DECISION-MAKING Aged Out No longer eligibl e based on patient's age to complete this topic MENINGOCOCCAL GROUPS A/C/Y/W VACCINE Aged Out No longer eligible b ased on patient's age to complete this topic Care Teams Licensing And Registration Director Relationship Specialty Start Date End Date Rickie Alatorre DO [address] [place], [place] [id number] PCP - General Internal Medicine 03/26/22
--- OUTSIDE RECORDS SUMMARY | 2024-10-13 12:04 | XMS_ITS | Clinical Summary ---
Author Organization [facility] Address [address] [place] [address] Care Team Providers Care Planer Mill Grader Name Role Phone Jared Nick MD Primary Care Provider [phone] Allergies Active Allergy Reactions Criticality Noted Date [...] RESPIMAT INHAL) Inhale Acti ve vit D3-vit Z-aausvxhne-kfry 261-018-17-370 oqmu-mlr-aj-mg tablet Take by mouth Active perindopril (ACEON) [...] 04/19/2021, 09/27/2020, Additional history exists Influenza Vaccine (Season Ended) 2025 04/01/20 20 DTaP/Tdap/Td Vaccine (2 - Td or Tdap) 12/10/2028 12/10/2018, 12/10/2018 [place] Care Teams Planer Mill Grader Relationship Specialty Start Date End Date Jared Nick MD [address] [place] [address] PCP - General Internal Medicine 11/28/21
--- OUTSIDE RECORDS SUMMARY | 2024-10-13 12:04 | XMS_ITS | Clinical Summary ---
Author Organization [facility] Address [address] [place] [address] Care Team Providers Care Sole Rougher Name Role Phone Unavailable Primary Care Provider [...]
[2024-10-13 12:22] LABS: Basophils Absolute Auto 0.1 K/mm3 (0.0-0.1); Basophils Percent Auto 1.1 % (0.2-1.2); Eosinophils Absolute Auto 0.3 K/mm3 (0-0.3); Eosinophils Percent Auto 4.6 % (0-4.4); Hematocrit 39.5 % (37.0-47.0); Hemoglobin 12.4 g/dL (12.0-15.0); Immature Granulocyte Absolute 0.04 K/mm3 (0.00-0.031); Immature Granulocyte Percent A 0.7 % (0-0.5); Lymphocytes Absolute Auto 1.33 K/mm3 (0.9-3.2); Lymphocytes Percent Auto 21.7 % (18.3-44.2); Mean Corpuscular HGB Conc 31.4 g/dl (32-36); Mean Corpuscular Hemoglobin 29.7 pg (26-34); Mean Corpuscular Volume 94.5 fl (80-100); Monocytes Absolute Auto 0.8 K/mm3 (0.1-0.6); Monocytes Percent Auto 12.6 % (2.6-8.5); Neutrophils Absolute Auto 3.6 K/mm3 (1.3-6.7); Neutrophils Percent Auto 59.3 % (45.5-73.1); Platelet Count Result 235 k/mm3 (150-375); Red Blood Count 4.18 M/mm3 (4.2-5.4); Red Cell Distribution Width 12.6 % (11.5-14.5); White Blood Count 6.1 K/mm3 (4.5-10.0)
[2024-10-13 12:27] LABS: Add Urine Microscopic? YES; Appearance Urine Clear (Clear); Bacteria Urine 4+ /hpf; Bilirubin Urine Negative (Negative); Blood Urine Negative (Negative); Color Urine Yellow (Yellow); Glucose Urine UA Negative (Negative); Ketones Urine Negative (Negative); Leukocyte Esterase Ur Trace LEU/UL (Negative); Nitrate Urine Negative (Negative); Non Pathogenic Casts 0-2; Protein Urine Negative (Negative); RBC Urine 0-2 /hpf (0-2); Specific Grav Ur 1.015 (1.001-1.035); Squamous Epithelial Cell Urine None Seen /hpf (Few); Urobilinogen Urine 0.2 mg/dL (<2.0); WBC Urine 0-5 /hpf (0-3); pH Urine 5.5 (5.0-9.0)
[2024-10-13 12:35] LABS: INR 0.9; Partial Thromboplastin Time 26.4 Seconds (22.3-36.8); Prothrombin Time 12.1 Seconds (11.1-14.7)
[2024-10-13 12:38] LABS: Albumin Level 4.5 g/dL (3.5-5.1); Anion Gap 8 mmol/L (4-12); Blood Urea Nitrogen 17 mg/dL (7-17); Calcium 9.5 mg/dL (8.4-10.2); Carbon Dioxide 28 mmol/L (22-30); Chloride 101 mmol/L (98-107); Estimated Glomerular Filt Rate > 60; Glucose 88 mg/dL (65-110); Potassium 4.1 mmol/L (3.4-5.0); Sodium 137 mmol/L (137-145)
[2024-10-13 12:56] LABS: Urine Cotinine NEGATIVE
[2024-10-13 13:34] LABS: MRSA (PCR) NOT DETECTED (NOT DETECTE)
[2024-10-13 14:51] LABS: Hemoglobin A1C 5.5 % (<5.7)
== END 2024-10-13 11:10 | disposition home or self-care (01) ==
LOC: ANHSURGERY 11:12
PROVIDERS: PCP Nurse Practitioner; Visit Provider Orthopaedic Surgery
DX: Z01.812 Encounter for preprocedural laboratory examination (principal); M17.12 Unilateral primary osteoarthritis, left knee
CPT/HCPCS: 80048; 80307; 81001; 82040; 83036; 85025; 85610; 85730; 86850; 86900; 86901; 87641

== ENCOUNTER 2024-10-27 16:19 | Observation (INO) | payer MEDICARE, SELFPAY ==
[2024-10-13 11:23] VITALS: BP 140/63; PULSE 65; RESP 16; TEMP 36.5; O2SAT 92; BMI 23.9
--- NOTE | 2024-10-13 11:41 | PC.NURSE ---
Report to the Outpatient Waiting Room, entrance under the green pavilion located off [facility], at time __0600am___ on date _10/26/24 . Planned Procedure Time: ___0730am .? Time changes happen often and if your time is changed the preop area will call you the afternoon before. - You and your visitor will be asked to self-screen and do not enter if you have any COVID symptoms. Please call surgeon if you need to reschedule. - A mask is optional within the hospital at this time. Patients may have clear liquids (water, carbonated beverages, clear teas, apple juice) until 3 hours prior to surgery with a maximum of 20 ounces. - No food from midnight until time of surgery and no smoking, or chewing tobacco (or any form of nicotine). No chewing gum, candy or mints. (0430am) Take only the following medications with a SIP of water on the morning of surgery: ____Amlodipine and Breztri inhaler, and Tylenol and Albuteral inhaler if needed DO NOT STOP ANY OF YOUR OTHER PRESCRIPTION MEDICATIONS PRIOR TO SURGERY EXCEPT THE FOLLOWING Hold all vitamins and supplements for 3 days per anesthesiologist. Date to take last dose is 10/23/24 Medications to discontinue per physician Aspirin and NSAIDS ( MOTRIN) for [address] Croft Date to take last dose 10/17/24 Please no make-up, nail french, hairspray, perfume, deodorant, or body powder the day of surgery.? No jewelry (including any body piercings) or valuables the day of surgery, leave them at home.? Please take a shower or bath the night before, or the morning of, surgery with an antibacterial soap. Dr Croft ? Wear comfortable, loose fitting clothing.? Children are encouraged to wear pajamas. - Jewelry must be removed prior to entering the operating room.? Rings and piercings that are not removed may be cut off. - The hospital will not accept responsibility for valuables.? - Please leave all valuables, including medications, at home the day of surgery. If you are going home after surgery, a licensed dedicated driver must drive you home.? - NO public transportation without another adult if you receive anesthesia. - We recommend that an adult stay with you for 24 hours following discharge. - We also recommend that you do not drive, make important decision, drink alcoholic beverages, or take any drugs that were not prescribed by your health care provider for at least 24 hours after your discharge time. Follow any additional instructions given to you from your surgeon. Telephone instructions given to __Patient and asked if any additional questions and then verbalized understanding. Patient advised to call surgeon office or pre surgery nurse liaison [phone] if any additional questions.
[2024-10-26] VITALS (16 sets, daily range): BP systolic 125–158; BP diastolic 50–90; PULSE 84–95; RESP 12–18; TEMP 36.1–37.1; O2SAT 91–97
--- OUTSIDE RECORDS SUMMARY | 2024-10-26 00:17 | XMS_ITS | Referral Summary ---
Author Organization [facility] Address [address] [place] [address] Care Team Providers Care Gourmet Coffee Attendant Name Role Phone Jared Nick MD Primary Care Provider [phone] Allergies Active Allergy Reactions Criticality Noted Date [...] RESPIMAT INHAL) Inhale Acti ve vit D3-vit Q-qpgqtplne-klxb 121-459-53-370 isnf-fis-bt-mg tablet Take by mouth Active perindopril (ACEON) [...] Not on file Insurance DUAL COMPLETE OOS [id number] [place] [address] [facility] MEDICARE Care Teams Gourmet Coffee Attendant Relationship Specialty Start Date End Date Jared Nick MD [address] [facility] [address] [place] [address] PCP - General Internal Medicine 11/28/21
--- OUTSIDE RECORDS SUMMARY | 2024-10-26 00:17 | XMS_ITS | Data Portability ---
Author Organization [place] [employer], Main Office Address [address] [place] [address] Care Team Providers Care Car Tester Name Role Phone NICOLE BRADEN Primary Care Provider NICOLE BRADEN Referring Provider [phone] Assessment Encounter Date Assessment Date Assessment LastModified [...] treatment patient than half of this in nbvi-bu-nytr conversation Not available 09/17/2022 08:44:34 12/17/2022 12/17/2022 Patient returns requesting another cortisone shot in her left knee. His history of severe me to compartment osteoarthritis left knee is getting cortisone shots every 3 months and to help temporarily. The she had new x-rays left knee today which show bctk-yc-avxo medial compartment osteoarthritis left knee with sclerosis [...] anything changes the meantime she will call [facility] Not available 03/18/2023 09:19:15 06/17/2023 06/17/2023 The [...] more than half the time spent in nnrn-rs-rbyg care. Not available 09/17/2023 13:58:31 Plan of Treatment Reminders Order Date Submit Date Provider Last Modified By Organization Details Last Modified Time Details Appointments None recorded. Lab None recorded. Referral None recorded. Procedures injection/a spiration joint/bursa (PROC) - in office procedure, administere d by provider 2023 024 [email or web address] In-Office Order, Internal Use Only DO Not Attach Compendium DO Not Attach Compendium, Do Not Delete/merge, [id number] 09:49:07 injection/a spiration joint/bursa (PROC) 2022 023 [email or web address] In-Office Order, Internal Use Only DO Not Attach Compendium DO Not Attach Compendium, Do Not Delete/merge, [id number] 3 14:13:18 injection/a spiration joint/bursa (PROC) - in office procedure, administere d by provider 2022 023 [email or web address] In-Office Order, Internal Use Only DO Not Attach Compendium DO Not Attach Compendium, Do Not Delete/merge, [id number] 3 08:41:18 injection/a spiration joint/bursa (PROC) - in office procedure, administere d by provider 2022 023 [email or web address] In-Office Order, Internal Use Only DO Not Attach Compendium DO Not Attach Compendium, Do Not Delete/merge, [id number] 3 08:35:23 injection/a spiration joint/bursa (PROC) - in office procedure, administere d by provider 2022 023 Not available 3 08:36:20 Surgeries None recorded. Imaging XR, knee 2022 023 [facility] [place], [address], [place], [address], 3 12:01:09 XR, knee 2022 023 [facility] [place], [address], [place], [address], 3 16:12:26 Medication Orders Kenalog 10 mg/mL suspension for injection 2023 024 [email or web address] [address] [facility], [address], [place], [place], [id number], 4 14:13:50 ropivacaine (PF) 5 mg/mL (0.5 %) injection solution 2023 024 [facility] #97490, [address], [place], [place], [id number], 4 14:13:50 bupivacaine HCl 0.5 % (5 mg/mL) injection solution 2022 023 [email or web address] [facility] #63911, [address], [place], [place], [id number], 4 09:46:20 Kenalog 10 mg/mL suspension for injection 2022 023 [place] [address] [facility], [address], [place], [place], [id number], 4 09:46:38 Kenalog 10 mg/mL suspension for injection [address] [facility]43202, [address], [place], [place], [id number], 4 09:46:38 ropivacaine (PF) 5 mg/mL (0.5 %) injection solution 2022 023 [facility], [address], [place], [place], [id number], 3 12:01:09 Kenalog 10 mg/mL suspension for injection 2022 023 [place] [address] [facility], [address], [place], [place], [id number], 4 09:46:38 ropivacaine (PF) 5 mg/mL (0.5 %) injection solution 2022 023 [address] [facility], [address], [place], [place], [id number], 3 16:12:26 Kenalog 10 mg/mL suspension for injection 2022 023 [email or web address] [facility]55939, [address], [place], [place], [id number], 4 09:46:38 ropivacaine (PF) 5 mg/mL (0.5 %) injection solution 2022 023 [address] [facility], [address], [place], [id number], 3 16:32:10 Patient TargetsNo targets recorded. Patient InstructionsNo instructions recorded. Reason for Referral None Reported. Results Created Date Observation Date Name Description Value Unit Range Abnormal Flag Note LastModifiedBy Organization Detail LastModifiedTime 12/18/19 XR, knee No observ ation record ed. [facility] [place] [address], [place], [address], 12/17/2022 09:02:25 03/18/20 XR, knee No observ ation record ed. [facility] [place] [address], [place], [address], 03/18/2023 09:14:48 Result Notes None recorded. Problems Name Problem SNOMED Code Status Onset Date Resolution Date Notes Provider Name and Address Organization Details Recorded Time Osteoarthr itis of left knee joint 9277975663714 09 Active 2022 NIEVES Li, [place] [employer] [facility] 3 08:35:00 Osteoarthr itis of knee 892388147 Active Not Available [facility] 3 04:52:03 Osteoarthr itis 902675134 Active Not Available [facility] 3 04:52:03 Pain of left knee joint 5205461703602 07 Active 2021 Not Available [facility] 3 04:52:03 Problem Notes None recorded. Procedures Surgical History Date Name Laterality Status Provider Name and Address Organization Details Recorded Time procedure on tonsils completed Not Available [facility] 09/10/2022 04:42:09 Knee Replacement completed Not Available [facility] 09/10/2022 04:42:09 Imaging Results Imaging Date Name Status LastModified by [facility] Details LastModified Time 12/17/2022 XR, knee completed [facility] [place] [address], [place], [address], 12/17/2022 09:02:25 03/18/2023 XR, knee completed [facility] [place] [address], [place], [address], 03/18/2023 09:14:48 Procedure Notes None recorded. Medical Equipment None Reported. Allergies Allergen ID Allergen Name Allergen Category Reaction Reaction Severity Criticality Documentation Date Start Date Code Code System Note Provider Name and Address Organization Details Recorded Time 9043 Substance with sulfonami de structure and antibacte rial mechanism of action (substanc e) medicatio n Not available Not available Not available 09/10/2022 68697 8003 SNOMED Not Available [facility] 3 05:07:47 9044 Celebrex medicatio n hives Not available Not available 09/10/2022 88517 7 RxNorm Not Available [facility] 3 05:07:47 Medications Name Sig Start Date [...] suspension for injection in office 2023 active [facility]: 0003- 0494- 20 Not Available Not Available [...] administe red by the provider 11/27 completed [facility]: 0409- 4276- 17 Not Available Not Available [...] %) injection solution in office 2023 active [facility] 35780 -064- 01 Not Available Not Available Not [...] 09/17/2022 157.48 cm NIEVES Li [place] [facility] [employer] 09/17/2022 08:33:24 Date Recorded Body height Provider Name an d Address Organization Details Last Updated DateTime 12/17/2022 157.48 cm Dara Wallace Daniel [facility] 12/17/2022 08:33:00 Date Recorded Body height Provider Name an d Address Organization Details Last Updated DateTime 03/18/2023 157.48 cm Dara Wallace Daniel [facility] [employer] [facility] 03/18/2023 08:37:36 Date Recorded Body height Provider Name an d Address Organization Details Last Updated DateTime 06/17/2023 157.48 cm Tammie Webb [facility] 06/17/2023 14:10:59 Date Recorded Body height Body mass index (BMI) Body weight Provider Name and Address Organization Details Last Updated DateTime 09/16/2023 157.48 cm 24 kg/m2 82657.6 g Dara Wallace Daniel [facility] [employer] [facility] 09/16/2023 09:55:00 Social History Question Answer Notes LastModified by Organizat ion Details LastModified Time Tobacco Smoking Status Never Smoker Not Available [facility] 09/10/2022 04:19:28 What Is Your Level Of Alcohol Consumption? None [id number] Information not available 09/10/2022 Sex: Unknown Functional Status None recorded. Mental Status None recorded. Family History Relationship Description Onset Age of this Age Resolved Age Notes LastModified by Organization Details LastModified Time Father Family history of malignant neoplasm [id number].033 [id number] Not available 09/10/2022 04:42:12 Father Hypertensive disorder MIGRATION.850 [id number] Not available 09/10/2022 04:42:12 Mother Family history of malignant neoplasm MIGRATION.110 [id number] Not available 09/10/2022 04:42:12 Mother Hypertensive disorder [id number].335 [id number] Not available 09/10/2022 04:42:12 Medical History Condition Response BLINDNESS N KIDNEY STONES N MRSA N CARPAL TUNNEL SYNDROME N LUNG DISEASE/DISORDER N HISTORY OF DRUG ABUSE N COPD Y RADIATION / CHEMOTHERAPY N SPORTS INJURY N ANKLE PAIN N BLOOD DISEASES N SCHIZOPHRENIA N SHINGLES N SHOULDER PAIN N DEPRESSION (INCLUDING POST ) N BOWEL PROBLEMS N STROKE/TIA N KNEE PAIN N ULCERS [...] N NEUROPATHY N AIDS/HIV N FRACTURES N HYPERTENSION Y ELBOW PAIN N TOURETTE'S N Metal allergy N ANXIETY DISORDER N BLOOD TRANSFUSION N ANEMIA/BLOOD DISORDER N BIPOLAR DISORDER N BRONCHITIS N OSTEOARTHRITIS N TUBERCULOSIS N FOOT PROBLEM N HEART VALVE DISORDERS N ALLERGIES/HAYFEVER N SOFT TISSUE INJURY N INFECTIOUS DISEASE N HEART ARRHYTHMIA N INSOMNIA N HIGH CHOLESTEROL / HYPERLIPIDEMIA N RHEUMATOID ARTHRITIS N EDEMA N CHRONIC PAIN SYNDROME N CAROTID BLOCKAGE N BACK / NECK PROBLEMS N HAVE YOU BEEN HOSPITALIZED OR SEEN IN [facility] ER IN THE PAST YEAR ? N BURSITIS N HERNIATED DISC N DIALYSIS N FIBROMYALGIA N OSTEOPOROSIS N ARTHRITIS Y NO SIGNIFICANT PAST MEDICAL HISTORY N PERIPHERAL NEUROPATHY N DIABETES, TYPE N HEARTBURN / REFLUX N HEPATITIS / LIVER DISEASE N GOUT N ALZHEIMER'S DISEASE N SLEEP DISORDER N HERPES N HEADACHES/MIGRAINES N SEIZURES/EPILEPSY N VASCULAR DISEASE N Blood Disorder N HIP PAIN N DIZZINESS N HEAD TRAUMA OR INJURY [...] SNOMED-CT Code Diagnosis ICD10 Code Diagnosis Note [id number] [facility] [place] [address] [facility] [address] [place] [address] 11/28/2020 00:00:00 11/28/2020 09:22:22 [id number] [facility] [place] [address] [facility] [address] [place] [address] 02/27/2021 00:00:00 02/27/2021 09:10:43 [id number] [facility] [place] [address] [facility] [place] [address] 05/29/2021 00:00:00 05/29/2021 09:14:04 [id number] [facility] [place] [address] [facility] [address] [place] [address] 08/28/2021 00:00:00 08/28/2021 09:08:28 [id number] [facility] [place] [address] [place] [address] 11/27/2021 00:00:00 11/28/2021 11:13:24 [id number] [facility] [place] [address] [place] [address] 03/26/2022 00:00:00 03/26/2022 09:08:19 [id number] [facility] [place] [address] [place] [address] 04/09/2022 00:00:00 04/09/2022 08:59:37 [id number] [facility] [place] [address] [place] [address] 04/23/2022 00:00:00 04/23/2022 09:28:11 [id number] [facility] [place] [address] [place] [address] 06/11/2022 00:00:00 06/11/2022 09:20:35 [id number] JENNIFER Sena [facility] [place] [address] [place] [address] 09/17/2022 08:29:28 09/17/2022 08:45:55 Osteoarthritis of left knee joint 2501469544 71231 M17.12 [id number] Chacorta Dunlap MD [facility] [place] [address] [place] [address] 12/17/2022 08:29:28 12/17/2022 09:09:55 Osteoarthritis of left knee joint 4339210094 22234 M17.12 [id number] Chacorta Dunlap MD [facility] [place] [address] [place] [address] 03/18/2023 08:33:10 03/18/2023 09:24:01 History of right total knee replacement 3898982253 207068 Z96.651 Osteoarthr itis of left knee joint 1916772048 77451 M17.12 [id number] JENNIFER Vanessa [facility] [place] [address] [place] [address] 06/17/2023 14:06:51 06/17/2023 14:34:25 Osteoarthritis of left knee joint 5235447276 18638 M17.12 History of right total knee replacement 2809958157 634470 Z96.196 [id number] Chacorta Dunlap MD [facility] [place] [address] [place] [address] 09/16/2023 09:17:38 09/17/2023 14:54:27 Osteoarthritis of left knee joint 5632880069 01289 M17.12 Health Concerns Section Related Observation LastModified by Organization Detai ls LastModified Time None Recorded Concern Status LastModified by Organization Details LastModified Time None Recorded Advance Directives Directive None Recorded Payers Encounter Date Sequence Insurance Name Policy Number Policy Arce Covered Member ID Arce Member ID Guarantor Name 09/17/2022 1 [facility] - [employer] - [employer] - MEDICARE COMPLETE PLAN 2 (MEDICARE REPLACEMENT HMO) [id number] Delilah Baltazar [id number] Delilah Baltazar 12/17/2022 1 [facility] - [employer] - SECURE [employer] - MEDICARE COMPLETE PLAN 2 (MEDICARE REPLACEMENT HMO) [id number] Delilah Baltazar [id number] Delilah Baltazar 03/18/2023 1 [facility] - [employer] - SECURE [employer] - MEDICARE COMPLETE PLAN 2 (MEDICARE REPLACEMENT HMO) [id number] Delilah Baltazar [id number] Delilah Baltazar 06/17/2023 1 [facility] - [employer] - SECURE [employer]IZ[employer] - MEDICARE COMPLETE PLAN 2 (MEDICARE REPLACEMENT HMO) [id number] Delilah Baltazar [id number] [id number] Delilah Baltazar 09/16/2023 1 [employer] (MEDICARE REPLACEMENT PPO) [id number] Delilah Baltazar [id number] Delilah Baltazar Notes Date Note Type Note Provider Name and Address Organization Details Recorded Time 06/17/2023 text/html Patient returns with left knee pain she has had a previous right total knee arthroplasty this is being followed by Dr. Dunlap in the meantime her left knee continues to bother her she has severe medial compartment osteoarthritis with ylvh-ie-sclw changes left knee. It has been 3 [...] shot of cortisone today. JENNIFER Vanessa [address] [facility], [place], [address], [employer] 06/17/2023 14:40:18 09/16/2023 text/html Patient returns. She would like to have another cortisone shot in her left knee. She has jdhx-tj-dsum medial compartment osteoarthritis her left knee. Her [...] on the right without radiographic complication and nfbl-uk-hmwy medial compartment osteoarthritis left knee. Chacorta Dunlap MD [address], [place], [address], [employer] 09/17/2023 13:58:47 OBGyn Episode No OBEpisode recorded.
--- OUTSIDE RECORDS SUMMARY | 2024-10-26 00:17 | XMS_ITS | Clinical Summary ---
Author Organization [facility] Address [address] [place] [address] Care Team Providers Care Train Braker Name Role Phone Unavailable Primary Care Provider [...] 2000 Dexa Scan (General) 2015 Pneumococcal Vaccine: 50+ Ye ars (1 of 1 - PCV) 2015 COVID-19 Vaccine ( - 2023-2 5 season) 2024 RSV Immunization or 60+ Years (1 [...]
--- OUTSIDE RECORDS SUMMARY | 2024-10-26 00:17 | XMS_ITS | Clinical Summary ---
Author Organization [facility] Address [address] [place] [address] Care Team Providers Care Video Machines Mechanic Name Role Phone Jared Nick MD Primary Care Provider [phone] Allergies Active Allergy Reactions Criticality Noted Date [...] RESPIMAT INHAL) Inhale Acti ve vit D3-vit X-ninhjyabk-dfts [phone] aroe-rcs-ua-mg tablet Take by mouth Active perindopril (ACEON) [...] Td or Tdap) 12/10/2028 12/10/2018, 12/10/[address] Care Teams Video Machines Mechanic Relationship Specialty Start Date End Date Jared Nick MD [address] [place] [address] PCP - General Internal Medicine 11/28/21
--- OUTSIDE RECORDS SUMMARY | 2024-10-26 00:17 | XMS_ITS | Clinical Summary ---
Author Organization [facility] Address [address] [place] [address] Care Team Providers Care Supply Chain Buyer Name Role Phone Rickie Alatorre DO Primary Care Provider [phone] Source Comments [facility],non-owned Affiliates and Associated Physician Practices is amultiple site organization consisting of ambulatory clinics and hospital sitesin [place], [place], [place] and [place]. This disclosure is being madepursuant to the Care Everywhere program and may not contain all information available regarding this patient. Last updated 18.[facility] Allergies Active Allergy Reactions Criticality Noted Date Comments Celecoxib Urticaria Medium 12/31/2021 Levofloxacin Itching 03/26/2022 Sulfa Drugs Other Low 12/31/2021 Medications * Be aware that medications may not be up to date on this document. Alwaysverify current medications with the patient. atorvastatin (Lipitor) 20 MG tablet Take 20 [...] mg by mouth 2 times daily Active HYDROcodone-mayo taminophen ([place]) 7.5-325 MG tablet Take 1 tablet by mouth as needed for Pain Active Cholecalciferol (Vitamin D) 125 MCG (5000 UT) CAPS Take 5,000 Units by mouth once daily Active Tiotropium [place]-Olodate rol (Stiolto Respimat) 2.5-2.5 MCG/ACT Inhale 1 puff [...] drink = 0.6 oz pur e alcohol) Comments Unknown Sex and Gender Information Value Date Recorded Sex Assigned at Not on file Legal Sex Female 11:51 AM CDT Gender Identity Not on file [...] VACCINE ( - 2023-2 5 season) 2024 DEPRESSION SCREENING 07/13/2024 MEDICARE AWV CALENDAR YEAR 2024 INFLUENZA VACCINE (Season Ended) 2025 Respiratory Syncytial Virus (RSV) Vaccine Pt: or [...] on patient's age to complete this topic Insurance [facility] [employer] MEDICARE ADV * Guarantor: TONY BALTAZAR Account Type Relation to Patient Date of Phone Billing Address Personal/Family [address] [place] [address] [employer] MEDICARE ADV SELF PAY NO INSURANCE Member Subscriber Plan / Payer (Ef fective for All Dates) Name:Tony Baltazar Member ID:Not on file Relation to Subscriber:Not on file Name:TONY BALTAZAR Subscriber ID:Not on file Address: [address] [place] [address] Payer ID:Not on file Group ID:Not on file Type:Self Pay Address: [place], [place] * Guarantor: TONY BALTAZAR Account Type Relation to Patient Date of Phone Billing Address Personal/Family [address] [place] [address] [facility] MEDICARE ADV SELF PAY NO INSURANCE Member Subscriber Plan / Payer (Ef fective for All Dates) Name:Tony Baltazar Member ID:Not on file Relation to Subscriber:Not on file Name:TONY BALTAZAR Subscriber ID:Not on file Address: [address] [place] [address] Payer ID:Not on file Group ID:Not on file Type:Self Pay Address: [place], [place] * Guarantor: TONY BALTAZAR Account Type Relation to Patient Date of Phone Billing Address Personal/Family [address] [place] [address] [facility] MEDICARE ADV SELF PAY NO INSURANCE Member Subscriber Plan / Payer (Ef fective for All Dates) Name:Tony Baltazar Member ID:Not on file Relation to Subscriber:Not on file Name:TONY BALTAZAR Subscriber ID:Not on file Address: [place] [address] Payer ID:Not on file Group ID:Not on file Type:Self Pay Address: [place], [place] Care Teams Supply Chain Buyer Relationship Specialty Start Date End Date Rickie Alatorre DO [address] [place], [place] [id number] PCP - General Internal Medicine 03/26/22
[2024-10-26] MEDS: LACTATED RINGERS 1,000 ML 30 ML IV CONT ×2 (06:45→09:11)
[2024-10-26] MEDS: TRANEXAMIC ACID 1,000MG/ISO100 1,000 MG/100 ML BAG 200 MG IVPB (06:53)
[2024-10-26] MEDS: ACETAMINOPHEN 500 MG TABLET 1000 MG PO (06:53)
--- NOTE | 2024-10-26 06:55 | WPDANESEPPF ---
Anes - Initial Pre Proc Eval Procedure: Operation Date: 10/26/24 07:30 Proposed Procedures p Left Total Knee Arthroplasty - Bry Croft MD Date/Time: 10/26/24 06:55 Surgeon: Bry Croft MD Pre Op Diagnosis: Lt Knee DJD Patient Data Age: 74 Gender: F Height: 1.57 m Weight: 58.2 kg Last Vital Signs Temp 37.1 C 10/26/24 06:47 Pulse 84 10/26/24 06:47 Resp 16 10/26/24 06:47 BP 145/71 H 10/26/24 06:47 Pulse Ox 96 10/26/24 06:47 O2 Del Method Room Air 10/26/24 06:47 Allergies Allergy/AdvReac Type Severity Reaction Status Date / Time celecoxib Allergy Severe Hives Verified 10/26/24 06:42 levofloxacin Allergy Intermediate Nausea Verified 10/26/24 06:42 Sulfa (Sulfonamide Allergy Intermediate Nausea Verified 10/26/24 06:42 Antibiotics) doxycycline Allergy Nausea and Verified 10/26/24 06:42 Vomiting Home Medications ?Medication ?Instructions ?Recorded ?Confirmed ?Type cholecalciferol (vitamin D3) 50 50 mcg PO DAILY 02/24/22 10/26/24 History mcg (2,000 unit) tablet ibuprofen 600 mg tablet 600 mg PO TID 12/04/22 10/26/24 History epinephrine 0.3 mg/0.3 mL 0.3 ml subcut Q5-15M PRN 12/23/23 10/13/24 Rx injection, auto-injector (EpiPen) anaphylaxis #2 ea albuterol sulfate 90 mcg/actuation 2 inh inhalation Q4H PRN shortness 04/05/24 10/13/24 Rx aerosol inhaler of breath or wheezing #8.5 grams atorvastatin 20 mg tablet 20 mg PO DAILY 90 days #90 tabs 05/03/24 10/26/24 Rx aspirin 81 mg tablet,delayed 81 mg PO DAILY 05/05/24 10/26/24 History release (Adult Aspirin Regimen) perindopril erbumine 8 mg tablet 8 mg PO DAILY 90 days #90 tabs 05/24/24 10/26/24 Rx Breztri Aerosphere 160 2 inh inhalation QAM AND QPM #10.7 06/22/24 10/26/24 Rx mcg-9mcg-4.8mcg/actuation HFA grams aerosol inhaler (vlgxealvcj-extehzjn-hqehxvrfnq) pantoprazole 40 mg tablet,delayed See Rx Instructions .Route 07/08/24 10/26/24 Rx release .COMPLEX #90 tabs amlodipine 5 mg tablet 5 mg PO DAILY #90 tabs 10/03/24 10/26/24 Rx clindamycin HCl 300 mg capsule 300 mg PO ONCE UTI 10 days #10 caps 10/18/24 10/26/24 Rx chlorhexidine gluconate 4 % 1 applic topical ONCE #237 mL 10/19/24 10/26/24 Rx topical liquid (Hibiclens) ondansetron 4 mg disintegrating 4 mg PO Q8H #20 tabs 10/21/24 10/26/24 Rx tablet Patient hx anesthesia problems: none Family hx anesthesia problems: none Results Review: All pre-operative results and documents have been reviewed as part of the pre-operative evaluation. [facility] Past Medical History Medical History (Updated 10/26/24 @ 06:55 by Ambrocio Duran MD) Chronic obstructive pulmonary disease Hyperlipidemia History of tobacco use Tobacco use disorder Screening mammogram, encounter for Osteoarthritis Atypical pigmented lesion Establishing care with new doctor, encounter for Encounter for colonoscopy in patient with family history of colon cancer Hypertension Chronic GERD Surgical History Surgical History S/P total knee arthroplasty Right knee 03/12/2022 History of colonoscopy with polypectomy History of tonsillectomy Family History Family History Mother Carcinoma of colon Hypertension Father Carcinoma of colon Sibling No problems noted. 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 She is a former smoker and only has 1 child. She is . She denies any alcohol marijuana or illicit drug Surrogate medical decision maker: Cristine Baltazar, daughter. Code status: Full code. Smoking packs per day: 1 Smoking cigarettes per day: 20.0 Years smoked: 50 Smoking pack-years: 50.00 Smoking status: Former smoker Tobacco type: cigarettes Second hand tobacco smoke exposure: No Smoking end date: 07/13/19 Alcohol intake: never Substance use: never Substance use type: does not use Do You Feel Safe in your Home?: Yes Lack of Transportation: No Lack of Food: Never True Current Housing: I Have Housing Concerned About Future Housing: No Difficulty Paying Gas/Electric Bills: No Difficulty Paying for Meds: No Currently Unemployed: No Education: High School Diploma/GED Difficulty w/ Childcare or Family Care: No Living arrangements: alone Additional living arrangements comments: The patient lives in her own home in [place]. in June 2021. Occupation/Education: retired Additional occupation/education comments: [employer] Gender identity (if verbalized by the patient): Female Spiritual care concerns: No Anes - Eval Final PreProcedure Day of Procedure 10/26/24 06:55 Patient weight: normal Heart: regular rate and rhythm Lungs: decreased breath sounds Airway: Mallampati scale class II Neurological: alert and oriented Last oral intake: >/= 8 hours ASA classification: IV Emergent: no Anesthetic plan: proceed Anesthesia type and monitoring: general LMA and standard monitoring Results Review: All pre-operative results and documents have been reviewed as part of the pre-operative evaluation. Informed Consent: The patient's anesthetic plan and its attendant risks and benefits were discussed with the patient/family/POA. Questions were solicited and answers provided to the satisfaction of the patient/family/POA.
--- NOTE | 2024-10-26 07:19 | WPDHPUPDATE1 ---
History and Physical Update Update Date/Time: 10/26/24 07:19 History and Physical has been reviewed, including an updated exam of the patient. There are NO changes in the patient's condition. Risks, benefits, and alternatives have been discussed and questions answered. Patient agrees to proceed with procedure.
[2024-10-26] MEDS: ceFAZolin 2 GM/D5W 50 ML 2 GM/50 ML BAG IVPB ×3 (07:40→23:48)
[2024-10-26] MEDS: SODIUM CHLORIDE 0.9% IV 38.7 ML, MORPHINE SULFATE INJ (*CRX) 2 MG, ROPivacaine HCL 1% 2... INFILTRATE (08:36)
[2024-10-26] MEDS: TRANEXAMIC ACID 1,000 MG/10 ML AMPUL 1000 MG IV PUSH (08:40)
--- NOTE | 2024-10-26 09:05 | P.OP_ITS ---
Procedure Note - Detailed Date of Procedure 10/26/24 Pre-op Diagnosis Lt Knee DJD Post-op Diagnosis Same Procedure Performed L TKA Surgeon Bry Croft MD Anesthesia General Description of Procedure THE LEFT KNEE WAS PREPPED AND DRAPED IN THE STERILE FASHION. A MIDLINE SKIN INCISION WAS MADE. A MEDIAL PARAPATELLAR ARTHROTOMY WAS MADE. THE PATELLA WAS EVERTED. THERE WAS TRICOMPARTMENT DJD. THERE WAS MINIMAL PATELLA DJD. AN INTRAMEDULLARY PAUL WAS PLACED IN THE FEMUR. A DISTAL FEMORAL CUT WAS MADE IN 5 DEGREES OF VALGUS REMOVING APPROXIMATELY 9 MM OF BONE FROM THE DISTAL FEMUR. THE FEMUR WAS SIZED TO 62.5. A 62.5 FEMORAL CUTTING BLOCK WAS PLACED IN 3 DEGREES OF EXTERNAL ROTATION AND IN ALIGNMENT WITH AMANDA'S LINE AND THE TRANSEPICONDYLAR AXIS. ANTERIOR POSTERIOR AND CHAMFER CUTS WERE MADE. THE CUTS WERE EXCELLENT. NEXT AN INTRAMEDULLARY CUTTING GUIDE WAS PLACED IN THE TIBIA. A TRANS TIBIAL CUT WAS MADE ALONG THE LONG AXIS OF THE TIBIA. APPROXIMATELY 10 MM OF BONE WAS REMOVED FROM THE HIGH SIDE OF THE TIBIA. THE TIBIA WAS THEN PLANED TO A SMOOTH SURFACE. POSTERIOR FEMORAL OSTEOPHYTES WERE REMOVED FROM THE FEMORAL CONDYLES. A 67 TIBIAL TRIAL WAS PLACED IN ALIGNMENT WITH THE 1/3 MEDIAL ASPECT OF THE TIBIAL TUBERCLE. THEN A 62.5 FEMORAL TRIAL COMPONENT WAS PLACED. BOTH HAD EXCELLENT FITS. A 10 MM POLYETHYLENE TRIAL COMPONENT WAS PLACED. THE KNEE WAS TAKEN THROUGH A RANGE OF MOTION. THE KNEE CAME OUT TO FULL EXTENSION. THERE WAS NO ABNORMAL TILT TO THE PATELLA. THERE WAS GOOD A/P AND VARUS/VALGUS STABILITY. THERE WAS NO EXCESSIVE ROLL BACK WITH FLEXION. THE TRIAL COMPONENTS WERE REMOVED. THEN A 62.5 FEMORAL COMPONENT AND 67 TIBIAL COMPONENT WITH A 10 POLYETHYLENE COMPONENT WERE CEMENTED INTO PLACE. ONCE THE CEMENT WAS HARD THE KNEE WAS TAKEN THROUGH A ROM AGAIN AND FOUND TO BE STABLE WITH NO PATELLA TILT NO EXCESSIVE ROLL BACK WITH FLEXION AND GOOD S TABILITY WITH COMPLETE AND FULL EXTENSION. THE KNEE WAS IRRIGATED WITH STERILE BETADINE AND WATER FOR ABOUT 3 MINUTES. THE BLEEDERS WERE CAUTERIZED. THE ARTHROTOMY WAS REPAIRED WITH NUMBER 1 VICRYL. THE SUB CUTANEOUS LAYER WITH 2-0 VICRYL AND THE SKIN WITH VARINDER. THE WOUND WAS WASHED AND A STERILE DRESSING WAS APPLIED. PATIENT WAS EXTUBATED. Estimated Blood Loss -150.0 Pathology None sent Complications No immediate complications Condition Stable Disposition PACU
[2024-10-26] MEDS: ONDANSETRON INJ 4 MG/2 ML VIAL IV PUSH ×2 (09:30→23:45)
[2024-10-26] MEDS: HYDROmorphone HCL INJ (*CRX) 1 MG/ML SYR 0.25 MG IV PUSH ×4 (09:39→10:03)
[2024-10-26] MEDS: diazePAM INJ (*CRX) 10 MG/2 ML SYRINGE 2.5 MG IV PUSH (10:12)
[2024-10-26] MEDS: SENNA/DOCUSATE SODIUM TABLET 2 TAB PO ×2 (11:14→17:27)
[2024-10-26] MEDS: CHOLECALCIFEROL 1,000 UNITS TABLET 2000 UNITS PO (11:14)
[2024-10-26] MEDS: amLODIPine BESYLATE 5 MG TABLET PO (11:15)
[2024-10-26] MEDS: ONDANSETRON HCL ODT 4 MG TABLET PO ×2 (11:15→17:27)
[2024-10-26] MEDS: polyethylene glycoL 3350 17 GM POWD.PACK PO (11:15)
[2024-10-26] MEDS: ASPIRIN 81 MG ENTERIC TABLET PO ×2 (11:15→21:33)
[2024-10-26] MEDS: SODIUM CHLORIDE 0.9% IV 1,000 ML 125 ML IV CONT (11:16)
[2024-10-26] MEDS: oxyCODONE/ACETAMINOPHEN (*CRX) 5-325 MG TABLET 1 TABLET PO (11:27)
[2024-10-26] MEDS: HYDROmorphone HCL INJ (*CRX) 1 MG/ML SYR IV PUSH ×2 (13:58→23:45)
[2024-10-26] MEDS: ATORVASTATIN 20 MG TABLET PO (21:33)
[2024-10-26] MEDS: oxyCODONE/ACETAMINOPHEN (*CRX) 10-325 MG TABLET 1 TAB PO (21:33)
[2024-10-27] VITALS (9 sets, daily range): BP systolic 106–116; BP diastolic 45–59; PULSE 77–98; RESP 16–20; TEMP 36.8–37; O2SAT 91–97
--- NOTE | ~2024-10-27 | XR_ITS ---
EXAMINATION: [id number] DATE: 10/26/2024 09:27 INDICATION: Postoperative evaluation following right total knee arthroplasty. TECHNIQUE: Anteroposterior and lateral views of the right knee were obtained. COMPARISON: None. FINDINGS: Right total knee arthroplasty without patellar resurfacing appears well seated and in near anatomic a lignment. No fractures identified. Anterior skin joce and expected postoperative subcutaneous, in tramedullary and intra-articular gas. IMPRESSION: 1. Right total knee arthroplasty, negative for postoperative purposes. Reviewed, dictated and finalized at location A.
[2024-10-27] MEDS: HYDROmorphone HCL INJ (*CRX) 1 MG/ML SYR 0.5 MG IV PUSH (05:50)
[2024-10-27] MEDS: ONDANSETRON INJ 4 MG/2 ML VIAL IV PUSH ×2 (05:55→10:52)
[2024-10-27 06:06] LABS: Basophils Percent Auto 0.3 % (0.2-1.2); Hematocrit 34.4 % (37.0-47.0); Hemoglobin 10.7 g/dL (12.0-15.0); Immature Granulocyte Absolute 0.04 K/mm3 (0.00-0.031); Immature Granulocyte Percent A 0.4 % (0-0.5); Lymphocytes Absolute Auto 1.46 K/mm3 (0.9-3.2); Lymphocytes Percent Auto 15.8 % (18.3-44.2); Mean Corpuscular HGB Conc 31.1 g/dl (32-36); Mean Corpuscular Volume 96.4 fl (80-100); Mean Platelet Volume 10.5 fl (7.4-10.4); Monocytes Absolute Auto 1.4 K/mm3 (0.1-0.6); Monocytes Percent Auto 14.8 % (2.6-8.5); Neutrophils Absolute Auto 6.3 K/mm3 (1.3-6.7); Neutrophils Percent Auto 68.7 % (45.5-73.1); Platelet Count Result 245 k/mm3 (150-375); Red Blood Count 3.57 M/mm3 (4.2-5.4); Red Cell Distribution Width 12.4 % (11.5-14.5); White Blood Count 9.2 K/mm3 (4.5-10.0)
[2024-10-27 06:14] LABS: Anion Gap 7 mmol/L (4-12); Blood Urea Nitrogen 14 mg/dL (7-17); Calcium 8.7 mg/dL (8.4-10.2); Carbon Dioxide 24 mmol/L (22-30); Chloride 101 mmol/L (98-107); Estimated CRCL calculation 58 ml/min; Estimated Glomerular Filt Rate > 60; Glucose 102 mg/dL (65-110); Potassium 3.8 mmol/L (3.4-5.0); Sodium 132 mmol/L (137-145)
[2024-10-27] MEDS: diazePAM (*CRX) 5 MG TABLET PO (07:37)
[2024-10-27] MEDS: ceFAZolin 2 GM/D5W 50 ML 2 GM/50 ML BAG IVPB (07:38)
[2024-10-27] MEDS: PANTOPRAZOLE 40 MG TABLET BY MOUTH (07:41)
[2024-10-27] MEDS: oxyCODONE/ACETAMINOPHEN (*CRX) 5-325 MG TABLET 1 TABLET PO ×2 (08:47→17:36)
[2024-10-27] MEDS: FLUTICASONE/UMECLIDIN/VILANTER 100-62.5-25 MCG ELLIPTA 1 PUFF INHALATION (09:11)
[2024-10-27] MEDS: SIMETHICONE 125 MG CHEW TAB PO ×2 (09:27→18:31)
[2024-10-27] MEDS: PROMETHAZINE HCL 25 MG/ML AMPUL IM ×2 (09:28→22:11)
[2024-10-27] MEDS: HYDROmorphone HCL INJ (*CRX) 2 MG/ML VIAL 0.5 MG IV PUSH (10:56)
--- NOTE | 2024-10-27 12:34 | PC.NURSE ---
Am meds given late due to patient nausea
[2024-10-27] MEDS: oxyCODONE/ACETAMINOPHEN (*CRX) 10-325 MG TABLET 1 TAB PO ×2 (13:36→22:18)
[2024-10-27] MEDS: ASPIRIN 81 MG ENTERIC TABLET PO ×2 (13:39→20:27)
[2024-10-27] MEDS: CHOLECALCIFEROL 1,000 UNITS TABLET 2000 UNITS PO (13:40)
--- NOTE | 2024-10-27 16:16 | P.PNOP_ITS ---
Progress Note: A&P Assessment and Plan (1) Left knee DJD: Qualifiers: Osteoarthritis type: primary Qualified Code(s): M17.12 - Unilateral primary osteoarthritis, left knee Code(s): M17.12 - Unilateral primary osteoarthritis, left knee Status: Acute Assessment and Plan: POD 1 IMPROVING. SHE WILL NEED FOR TIME FOR IMPROVEMENT WITH PT. SHE HAS NOT PROGRESSED ENOUGH TO BE INDEPENDENT. WE WILL REEVALUATE HER TMRW FOR DISCHARGE Subjective Subjective Date/Time Seen: 10/27/24 16:16 Interval history: POD DOING WELL. SHE HAS MADE PROGRESS WITH PT. HER NAUSEA AND VOMITING HAVE IMPROVED. 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 INTACT [employer] SIGN Objective Data Vital Signs Vital Signs: Vital Signs - 24 hr 10/26/24 16:23 10/26/24 20:23 10/27/24 00:23 Temperature 36.2 C L 37.0 C 37.0 C Pulse Rate 88 90 88 Respiratory Rate 16 16 16 Blood Pressure 137/65 128/62 112/59 L Pulse Oximetry 91 93 97 Oxygen Delivery Oxygen Flow Rate 10/27/24 04:23 10/27/24 07:40 10/27/24 08:00 Temperature 36.8 C Pulse Rate 98 Respiratory Rate 16 Blood Pressure 106/55 L Pulse Oximetry 96 95 93 Oxygen Delivery Nasal Cannula Nasal Cannula Oxygen Flow Rate 4 2 10/27/24 08:23 10/27/24 09:12 10/27/24 09:47 Temperature 36.9 C Pulse Rate 77 Respiratory Rate 16 Blood Pressure 116/58 L Pulse Oximetry 97 91 Oxygen Delivery Nasal Cannula Nasal Cannula Oxygen Flow Rate 2 2 10/27/24 12:23 Temperature 37.0 C Pulse Rate 88 Respiratory Rate 18 Blood Pressure 114/45 L Pulse Oximetry 96 Oxygen Delivery Oxygen Flow Rate Intake/Output Intake/Output: Intake & Output 10/24/24 10/25/24 10/26/24 10/27/24 23:59 23:59 23:59 23:59 Intake Total 500 440 Balance 500 440 Meds/Results Medications: Active Medications Generic Name Dose Route Start Last Admin Trade Name Freq PRN Reason Stop Dose Admin Acetaminophen 500 mg 10/26/24 10:38 Acetaminophen 500 Mg Tablet PO Q6H PRN Pain Rated 1-3 Albuterol 2 puff 10/26/24 10:38 Albuterol Sulfate (*Sp) Aerosol 1 Puff INHALATION Q4H PRN shortness of breath or wheezing Amlodipine Besylate 5 mg 10/26/24 10:38 10/27/24 13:40 Amlodipine Besylate 5 Mg Tablet PO Not Given DAILY KRISTEN Aspirin 81 mg 10/26/24 10:38 10/27/24 13:39 Aspirin 81 Mg Enteric Tablet PO 81 mg Q12HR KRISTEN Administration Atorvastatin Calcium 20 mg 10/26/24 21:00 10/26/24 21:33 Atorvastatin 20 Mg Tablet PO 20 mg HS KRISTEN Administration Diazepam 5 mg 10/26/24 10:38 10/27/24 07:37 Diazepam (*Crx) 5 Mg Tablet PO 5 mg Q8H PRN Administration Spasms Diphenhydramine HCl 25 mg 10/26/24 10:38 Diphenhydramine Hcl Inj 50 Mg/Ml Vial IV PUSH Q6H PRN Itching Fluticasone/Umeclidinium/Vilanterol 1 puff 10/27/24 08:00 10/27/24 09:11 Fluticasone/Umeclidin/Vilanter 100-62.5-25 Mcg Ellipta INHALATION 1 puff DAILYRT [facility] Administration Hydromorphone HCl 1 mg 10/27/24 08:10 Hydromorphone Hcl Inj (*Crx) 2 Mg/Ml Vial IV PUSH Q2H PRN Breakthrough Pain Rated 7-10 or NPO Hydromorphone HCl 0.5 mg 10/27/24 08:11 10/27/24 10:56 Hydromorphone Hcl Inj (*Crx) 2 Mg/Ml Vial IV PUSH 0.5 mg Q2H PRN Administration Breakthrough Pain Rated 4-6 or NPO Lisinopril 20 mg 10/27/24 09:00 10/27/24 13:40 Lisinopril 20 Mg Tablet PO Not Given QAM KRISTEN Naloxone HCl 0.1 mg 10/26/24 10:38 Naloxone Hcl 0.4 Mg/Ml Vial IV PUSH Q2M PRN Opiate Reversal Ondansetron HCl 4 mg 10/26/24 10:38 10/27/24 10:53 Ondansetron Hcl Odt 4 Mg Tablet PO Not Given Q8H KRISTEN Ondansetron HCl 4 mg 10/26/24 10:38 10/27/24 10:52 Ondansetron Inj 4 Mg/2 Ml Vial IV PUSH 4 mg Q4H PRN Administration Nausea And Vomiting Oxycodone/Acetaminophen 1 tablet 10/26/24 10:38 10/27/24 08:47 Oxycodone/Acetaminophen (*Crx) 5-325 Mg Tablet PO 1 tablet Q4H PRN Administration Pain Rated 4-6 Oxycodone/Acetaminophen 1 tab 10/26/24 10:38 10/27/24 13:36 Oxycodone/Acetaminophen (*Crx) 10-325 Mg Tablet PO 1 tab Q6H PRN Administration Pain Rated 7-10 Pantoprazole Sodium 40 mg 10/27/24 09:00 10/27/24 07:41 Pantoprazole 40 Mg Tablet BY MOUTH 40 mg DAILY [facility] Administration Polyethylene Glycol 17 gm 10/26/24 10:38 10/27/24 10:53 Polyethylene Glycol 3350 17 Gm Powd.Pack PO Not Given QAM RKISTEN Promethazine HCl 25 mg 10/27/24 09:08 10/27/24 09:28 Promethazine Hcl 25 Mg/Ml Ampul IM 25 mg Q6H PRN Administration Nausea And Vomiting Senna/Docusate Sodium 2 tab 10/26/24 10:38 10/27/24 10:53 Senna/Docusate Sodium Tablet PO Not Given BID KRISTNE Simethicone 125 mg 10/27/24 09:13 10/27/24 09:27 Simethicone 125 Mg Chew Tab PO 125 mg QID PRN Administration Heartburn Vitamin D 2,000 units 10/26/24 10:38 10/27/24 13:40 Cholecalciferol 1,000 Units Tablet PO 2,000 units DAILY KRISTEN Administration Radiology Results: ITS Impressions Knee X-Ray 10/26/24 11:47 IMPRESSION: 1. Right total knee arthroplasty, negative for postoperative purposes. Labs Labs: Laboratory Results - last 24 hr 10/27/24 05:20 WBC 9.2 RBC 3.57 L Hgb 10.7 L Hct 34.4 L MCV 96.4 MCH 30.0 MCHC 31.1 L RDW 12.4 Plt Count 245 MPV 10.5 H Immature Gran % (Auto) 0.4 Neut % (Auto) 68.7 Lymph % (Auto) 15.8 L [place] % (Auto) 14.8 H Eos % (Auto) 0.0 Baso % (Auto) 0.3 Lymph # (Auto) 1.46 [place] # (Auto) 1.4 H Eos # (Auto) 0.0 Baso # (Auto) 0.0 Abs Immat Gran (auto) 0.04 H Absolute Neuts (auto) 6.3 Absolute Nucleated RBC 0.000 Nucleated RBC % 0.0 Sodium 132 L Potassium 3.8 Chloride 101 Carbon Dioxide 24 Anion Gap 7 BUN 14 Creatinine 0.57 L Estim Creat Clear Calc 58 Estimated GFR > 60 Glucose 102 Calcium 8.7
[2024-10-27] MEDS: ATORVASTATIN 20 MG TABLET PO (20:27)
[2024-10-28] MEDS: PROMETHAZINE HCL 25 MG/ML AMPUL IM (04:30)
[2024-10-28] MEDS: oxyCODONE/ACETAMINOPHEN (*CRX) 10-325 MG TABLET 1 TAB PO ×2 (04:30→11:15)
[2024-10-28 06:00] VITALS: BP 120/54; PULSE 108; RESP 20; TEMP 36.8; O2SAT 94
[2024-10-28] MEDS: oxyCODONE/ACETAMINOPHEN (*CRX) 5-325 MG TABLET 1 TABLET PO ×2 (08:28→16:07)
[2024-10-28] MEDS: CHOLECALCIFEROL 1,000 UNITS TABLET 2000 UNITS PO (08:29)
[2024-10-28] MEDS: lisinopriL 20 MG TABLET PO (08:29)
[2024-10-28] MEDS: amLODIPine BESYLATE 5 MG TABLET PO (08:29)
[2024-10-28] MEDS: PANTOPRAZOLE 40 MG TABLET BY MOUTH (08:29)
[2024-10-28] MEDS: polyethylene glycoL 3350 17 GM POWD.PACK PO (08:29)
[2024-10-28] MEDS: ASPIRIN 81 MG ENTERIC TABLET PO (08:29)
[2024-10-28] MEDS: SENNA/DOCUSATE SODIUM TABLET 2 TAB PO (08:29)
[2024-10-28 08:30] VITALS: O2SAT 94
[2024-10-28] MEDS: FLUTICASONE/UMECLIDIN/VILANTER 100-62.5-25 MCG ELLIPTA 1 PUFF INHALATION (09:09)
[2024-10-28 09:10] VITALS: PULSE 99; RESP 20; O2SAT 85
[2024-10-28] MEDS: ONDANSETRON HCL ODT 4 MG TABLET PO (11:11)
[2024-10-28 15:01] VITALS: BP 100/38; PULSE 94; RESP 20; TEMP 36.4; O2SAT 98
--- NOTE | 2024-11-21 12:53 | PM.DS ---
DS: Admitting Diagnosis Discharge Date 10/28/24 Admitting Diagnosis LEFT KNEE DJD DS: Discharge Diagnosis Discharge Diagnosis (1) Right knee DJD: Code(s): M17.11 - Unilateral primary osteoarthritis, right knee Status: Acute DS: Summary Hospital Course Reason for hospitalization: LEFT TKA Hospital Course: PATIENT WAS ADMITTED S/P TOTAL KNEE ARTHROPLASTY FOR POSTOPERATIVE MEDICAL MANAGEMENT, PAIN CONTROL AND MOBILIZATION WITH PHYSICAL AND OCCUPATIONAL THERAPY. THE PATIENT PROGRESSED WELL WITH PT/OT. LABS AND VITALS REMAINED STABLE AND PAIN WELL CONTROLLED. THE PATIENT HAS BEEN CLEARED TO BE DISCHARGED HOME. FOLLOW UP APPOINTMENT SCHEDULED. DISCHARGE INSTRUCTIONS DISCUSSED AT LENGTH WITH THE PATIENT. MEDICATIONS REVIEWED. Status at Discharge Cognitive/behavioral status at discharge: STABLE Time Spent with Patient Time attestation: Total time spent providing and/or coordinating discharge services: DS: Data Procedures/Treatments: LEFT TKA Discharge Plan Discharge Attending physician on discharge: Bry Croft Consulting providers: Ambrocio Duran; Chacorta Perez Discharging Clinician: Bry Croft Anticipated Discharge Date/Time: 10/28/24 16:00 Patient Disposition: Home with Home Health Service Activity: may shower and follow weight bearing status Diet: as tolerated Wound Care Instructions: follow printed instructions Discharge Instructions: Per Care Coordination, patient to discharge with [facility] for PT/ OT and alf services. Agency will call to arrange the initial visit. Patient Instructions: Antibiotic Form Patient Language: Indonesian Stand Alone Forms: General Discharge Information Follow-up/Referrals: Bry Croft MD [Physician] - Discharge Medications: New aspirin [Adult Aspirin Regimen] 81 mg tablet,delayed release (DR/EC) 162 mg PO DAILY Qty: 45 0RF ondansetron 4 mg tablet,disintegrating 4 mg PO Q6H PRN (Reason: nausea) Qty: 30 0RF Continued epinephrine [EpiPen] 0.3 mg/0.3 mL auto-injector 0.3 ml subcut Q5-15M PRN (Reason: anaphylaxis) Qty: 2 0RF Rx Instructions: do not exceed 2 doses per episode ibuprofen 600 mg tablet 600 mg PO TID Patient Comments: PT TO HOLD PREOP 7 days Breztri Aerosphere 160-9-4.8 mcg/actuation HFA aerosol inhaler 2 inh inhalation QAM AND QPM Qty: 10.7 11RF Rx Instructions: rinse and spit cholecalciferol (vitamin D3) 50 mcg (2,000 unit) Tablet 50 mcg PO DAILY Patient Comments: QAM albuterol sulfate 90 mcg/actuation HFA aerosol inhaler 2 inh inhalation Q4H PRN (Reason: shortness of breath or wheezing) Qty: 8.5 2RF perindopril erbumine 8 mg tablet 8 mg PO DAILY 90 Days Qty: 90 1RF Patient Comments: QAM pantoprazole 40 mg tablet,delayed release (DR/EC) See Rx Instructions .ROUTE .COMPLEX Qty: 90 1RF Dose Instruction: TAKE 1 TABLET BY MOUTH EVERY DAY Rx Instructions: TAKE 1 TABLET BY MOUTH EVERY DAY amlodipine 5 mg tablet 5 mg PO DAILY Qty: 90 1RF Patient Comments: QAM ondansetron 4 mg tablet,disintegrating 4 mg PO Q8H Qty: 20 0RF Rx Instructions: PRN nauseous Discontinued aspirin [Adult Aspirin Regimen] 81 mg tablet,delayed release (DR/EC) 81 mg PO DAILY chlorhexidine gluconate [Hibiclens] 4 % liquid 1 applic topical ONCE Qty: 237 0RF Rx Instructions: Cleanse operative extremity, in shower, every day for 1 week prior to surgical procedure. No Action oxycodone-acetaminophen [Percocet] 5-325 mg tablet 1 tablet PO Q8H PRN (Reason: pain) Qty: 40 0RF atorvastatin 20 mg tablet 20 mg PO DAILY 90 Days Qty: 90 1RF Patient Comments: Date of admission: 10/27/24 16:19 Primary Care Provider: Rober Seaman Admitting Provider: Bry Croft Attending physician on admission: Bry Croft Condition: Stable
== END 2024-10-28 16:40 | disposition home health service (06) ==
LOC: ANHSURGERY 16:23 → ANH3MEDSUR 16:23
PROVIDERS: Admitting Provider Orthopaedic Surgery; PCP Nurse Practitioner; Visit Provider Orthopaedic Surgery
PROC: (CPT 27447; principal; 2024-10-26 07:30)
DX: M17.12 Unilateral primary osteoarthritis, left knee (principal); R11.2 Nausea with vomiting, unspecified; I10 Essential (primary) hypertension; J44.9 Chronic obstructive pulmonary disease, unspecified; E78.5 Hyperlipidemia, unspecified; K21.9 Gastro-esophageal reflux disease without esophagitis; Z87.891 Personal history of nicotine dependence; Z96.651 Presence of right artificial knee joint
CPT/HCPCS: 27447; 36415; 73560; 80048; 85025; 94640; 97110; 97116; 97161; 97165; 97530; 97535; A9270; C1713; C1776; G0378; J0171; J0690; J1100; J1171; J2003; J2270; J2405; J2550; J2704; J2795; J3010; J3360; J7030; J7120

== ENCOUNTER 2025-07-09 09:06 | Outpatient (CLI) | payer MEDICARE, SELFPAY ==
--- NOTE | ~2025-07-09 | CT_ITS ---
CT lung screening INDICATION: Personal history of nicotine dependence, screening COMPARISON: 06/13/2024. TECHNIQUE: CT examination of the entire thorax without contrast was performed using low dose technique. Thin section axial, sagittal and coronal images were included to increase sensitivity for small lung nodules. FINDINGS: PULMONARY NODULES: No suspicious noncalcified pulmonary nodules. OTHER PULMONARY FINDINGS: Scarring or atelectasis are present at the lung bases. There are centrilobular emphysema. . No pathologically enlarged lymph nodes are present. Normal heart size. Within the limits of this nondedicated CT there are coronary artery calcifications. UPPER ABDOMEN AND PERIPHERAL SOFT TISSUE: There is a 2.2 x 1.7 cm right hepatic lobe cyst. Calcified granulomas within the spleen. OSSEOUS STRUCTURES: Bone window shows no aggressive blastic or lytic lesions. IMPRESSION: 1. Lung-RADS category 1: No nodules or definitely benign nodules. Recommendations: 1 or 2: Annual screening with low-dose CT in 12 months. 2. Centrilobular emphysematous changes are present. All CT scans at this facility are performed using low dose modulation techniques as appropriate to perform exam including the following: automated exposure control; use of iterative reconstruction technique; adjustment of the mA and/or kV according to patient size (this includes techniques or standardized protocols for targeted exams where dose is matched to indication/reason for exam). Reviewed, dictated and finalized at location S. [facility] PH[facility]AC[facility] IMPRESSION: 1. Lung-RADS category 1: No nodules or definitely benign nodules. Recommendations: 1 or 2: Annual screening with low-dose CT in 12 months. 2. Centrilobular emphysematous changes are present. All CT scans at this facility are performed using low dose modulation techniqu es as appropriate to perform exam including the following: automated exposure c ontrol; use of iterative reconstruction technique; adjustment of the mA and/or kV according to patient size (this includes techniques or standardized protocol s for targeted exams where dose is matched to indication/reason for exam).
--- OUTSIDE RECORDS SUMMARY | 2025-07-09 09:20 | XMS_ITS | Data Portability ---
Author Organization [place] [facility], Main Office Address [address] [place] [address] Care Team Providers Care Paint Brush Maker Name Role Phone ASIYA NICOLE Primary Care Provider [phone] ASIYA NICOLE Referring Provider [phone] Assessment Encounter Date Assessment Date Assessment LastModified [...] treatment patient than half of this in grin-dx-oedh conversation Not available 09/17/2022 08:44:34 12/17/2022 12/17/2022 Patient returns requesting another cortisone shot in her left knee. His history of severe me to compartment osteoarthritis left knee is getting cortisone shots every 3 months and to help temporarily. The she had new x-rays left knee today which show amde-jq-tzfy medial compartment osteoarthritis left knee with sclerosis [...] anything changes the meantime she will call [facility] Not available 03/18/2023 09:19:15 06/17/2023 06/17/2023 The [...] more than half the time spent in lqkv-lu-gfqz care. Not available 09/17/2023 13:58:31 Plan of Treatment Reminders Order Date Submit Date Provider Last Modified By Organization Details Last Modified Time Details Appointments None recorded. Lab None recorded. Referral None recorded. Procedures injection/a spiration joint/bursa (PROC) - in office procedure, administere d by provider 2023 024 In-Office Order, Internal Use Only DO Not Attach Compendium DO Not Attach Compendium, Do Not Delete/merge, [id number] 09:49:07 injection/a spiration joint/bursa (PROC) 2022 023 [email or web address] In-Office Order, Internal Use Only DO Not Attach Compendium DO Not Attach Compendium, Do Not Delete/merge, [id number] 3 14:13:18 injection/a spiration joint/bursa (PROC) - in office procedure, administere d by provider 2022 023 [email or web address] In-Office Order, Internal Use Only DO Not Attach Compendium DO Not Attach Compendium, Do Not Delete/merge, [id number] 08:41:18 injection/a spiration joint/bursa (PROC) - in office procedure, administere d by provider 2022 023 [email or web address] In-Office Order, Internal Use Only DO Not Attach Compendium DO Not Attach Compendium, Do Not Delete/merge, [id number] 3 08:35:23 injection/a spiration joint/bursa (PROC) - in office procedure, administere d by provider 2022 023 [email or web address] Not available 3 08:36:20 Surgeries None recorded. Imaging XR, knee 2022 023 [facility] [place], [address], [place], [address], 3 12:01:09 XR, knee 2022 023 [facility] [place], [address], [place], [address], 3 16:12:26 Medication Orders Kenalog 10 mg/mL suspension for injection 2023 024 [email or web address] [address] [facility]46196, [address] [facility], [place], [id number], 4 14:13:50 ropivacaine (PF) 5 mg/mL (0.5 %) injection solution 2023 [facility]24 [facility], [address] [facility], [place], [place], [id number], 4 14:13:50 bupivacaine HCl 0.5 % (5 mg/mL) injection solution 2022 023 [email or web address] [facility] #20938, [address], [place], [place], [id number], 4 09:46:20 Kenalog 10 mg/mL suspension for injection [address] [facility]60653, [address], [place], [place], [id number], 4 09:46:38 Kenalog 10 mg/mL suspension for injection [address] [facility]68768, [address], [place], [place], [id number], 4 09:46:38 ropivacaine (PF) 5 mg/mL (0.5 %) injection solution [address] [facility]59804, [address], [place], [place], [id number], 3 12:01:09 Kenalog 10 mg/mL suspension for injection 2022 023 [facility], [address], [place], [place], [id number], 4 09:46:38 ropivacaine (PF) 5 mg/mL (0.5 %) injection solution 2022 023 [facility], [address], [place], [place], [id number], 3 16:12:26 Kenalog 10 mg/mL suspension for injection [address] [facility]10040, [address], [place], [place], [id number], 4 09:46:38 ropivacaine (PF) 5 mg/mL (0.5 %) injection solution 2022 023 [email or web address] [address] [facility]23049, [address], [place], [id number], 3 16:32:10 Patient TargetsNo targets recorded. Patient InstructionsNo instructions recorded. Reason for Referral None Reported. Results Created Date Observation Date Name Description Value Unit Range Abnormal Flag Note LastModifiedBy Organization Detail LastModifiedTime 12/18/19 23 XR, knee No observ ation record ed. [facility] [place] [address], [place], [address], 12/17/2022 09:02:25 03/18/20 23 XR, knee No observ ation record ed. [facility] [place] [address], [place], [address], 03/18/2023 09:14:48 Result Notes None recorded. Problems Name Problem SNOMED Code Status Onset Date Resolution Date Notes Provider Name and Address Organization Details Recorded Time Osteoarthr itis of knee 490176078 Active Not Available [facility] 3 04:52:03 Osteoarthr itis 860432852 Active Not Available [facility] 3 04:52:03 Pain of left knee joint 3314519334608 07 Active 2021 Not Available [facility] 3 04:52:03 Osteoarthr itis of left knee joint 6050009270864 09 Active 2022 NIEVES Li, [place] [facility] 3 08:35:00 Problem Notes None recorded. Procedures Surgical History Date Name Laterality Status Provider Name and Address Organization Details Recorded Time procedure on tonsils completed Not Available [facility] 09/10/2022 04:42:09 Knee Replacement completed Not Available [facility] 09/10/2022 04:42:09 Imaging Results None recorded. Procedure Notes None recorded. Medical Equipment None Reported. Allergies Allergen ID Allergen Name Allergen Category Reaction Reaction Severity Criticality Documentation Date Start Date Code Code System Note Provider Name and Address Organization Details Recorded Time 9043 Substance with sulfonami de structure and antibacte rial mechanism of action (substanc e) medicatio n Not available Not available Not available 09/10/2022 21328 8003 SNOMED Not Available [facility] 3 05:07:47 9044 Celebrex medicatio n hives Not available Not available 09/10/2022 05173 7 RxNorm Not Available [facility] 3 05:07:47 Medications Name Sig Start [...] suspension for injection in office 2023 active [facility]: 0003- 0494- 20 Not Available Not Available [...] administe red by the provider 11/27 completed [facility]: 0409- 4276- 17 Not Available Not Available [...] %) injection solution in office 2023 active [facility] 81720 -064- 01 Not Available Not Available Not [...] Not Available Vitals Date Recorded Body height Body mass index (BMI) Body weight Provider Name and Address Organization Details Last Updated DateTime 09/16/2023 157.48 cm 24 kg/m2 01222.6 g Dara Wallace Daniel Mob[facility] 09/16/2023 09:55:00 Date Recorded Body height Provider Name an d Address Organization Details Last Updated DateTime 09/17/2022 157.48 cm Dara Wallace [facility] [employer] [facility] 09/17/2022 08:33:24 Date Recorded Body height Provider Name an d Address Organization Details Last Updated DateTime 12/17/2022 157.48 cm Dara Wallace [facility] 12/17/2022 08:33:00 Date Recorded Body height Provider Name an d Address Organization Details Last Updated DateTime 03/18/2023 157.48 cm NIEVES Li [facility] 03/18/2023 08:37:36 Date Recorded Body height Provider Name an d Address Organization Details Last Updated DateTime 06/17/2023 157.48 cm Tammie Webb [facility] [employer] 06/17/2023 14:10:59 Social History None recorded. Functional Status Question Answer Note LastModified by Organizat ion Details LastModified Time What is your level of alcohol consumption? None [id number] Information not available 09/10/2022 Mental Status None recorded. Family History Relationship Description Onset Age of this Age Resolved Age Notes LastModified by Organization Details LastModified Time Father Family history of malignant neoplasm [id number] Not available 09/10/2022 04:42:12 Father Hypertensive disorder [id number] Not available 09/10/2022 04:42:12 Mother Family history of malignant neoplasm [id number] [id number] Not available 09/10/2022 04:42:12 Mother Hypertensive disorder [id number] [id number] Not available 09/10/2022 04:42:12 Medical History Condition Response BLINDNESS N KIDNEY STONES N MRSA N CARPAL TUNNEL SYNDROME N LUNG DISEASE/DISORDER N HISTORY OF DRUG ABUSE N RADIATION / CHEMOTHERAPY N COPD Y SPORTS INJURY N ANKLE PAIN N BLOOD DISEASES N SCHIZOPHRENIA N SHINGLES N SHOULDER PAIN N BOWEL PROBLEMS N DEPRESSION (INCLUDING POST ) N STROKE/TIA N ULCERS N KNEE PAIN N BENIGN PROSTATIC HYPERPLASIA N OBESITY N [...] HAVE YOU BEEN HOSPITALIZED OR SEEN IN [facility] IN THE PAST YEAR ? N BURSITIS [...] HEART DISEASE/HEART PROBLEMS N MULTIPLE SCLEROSIS N CANCER: SPECIFY N CARDIAC ARRHYTHMIA N ANESTHESIA COMPLICATIONS N ATRIAL FIBRILLATION N AUTOIMMUNE DISEASE N Gynecological HistoryNo gynecological history recorded. Obstetrics History GPAL:G 0 P 0 0 0 0 Past Encounters Encounter ID Performer Location Encounter Start Date Encounter Closed Date Diagnosis/Indication Diagnosis SNOMED-CT Code Diagnosis ICD10 Code Diagnosis IMO Codes Diagnosis Note [id number] Chacorta Dunlap MD [facility] [place] [address] [facility] [address] [place] [address] 11/28/2020 00:00:00 11/28/2020 09:22:22 [id number] Chacorta Dunlap MD [facility] [place] [address] [place] [address] 02/27/2021 00:00:00 02/27/2021 09:10:43 [id number] Chacorta Dunlap MD [facility] [place] [address] [place] [address] 05/29/2021 00:00:00 05/29/2021 09:14:04 [id number] Chacorta Dunlap MD [facility] [place] [address] [place] [address] 08/28/2021 00:00:00 08/28/2021 09:08:28 [id number] Chacorta Dunlap MD [facility] [place] [address] [place] [address] 11/27/2021 00:00:00 11/28/2021 11:13:24 [id number] Chacorta Dunlap MD [facility] [place] [address] [place] [address] 03/26/2022 00:00:00 03/26/2022 09:08:19 [id number] Chacorta Dunlap MD [facility] [place] [address] [place] [address] 04/09/2022 00:00:00 04/09/2022 08:59:37 [id number] Chacorta Dunlap MD [facility] [place] [address] [place] [address] 04/23/2022 00:00:00 04/23/2022 09:28:11 [id number] Chacorta Dunlap MD [facility] [place] [address] [place] [address] 06/11/2022 00:00:00 06/11/2022 09:20:35 [id number] Chacorta Dunlap MD [facility] [place] [address] [place] [address] 09/17/2022 08:29:28 09/17/2022 08:45:55 Osteoarthritis of left knee joint 0809399828 99026 M17.12 [id number] Chacorta Dunlap MD [facility] [place] [address] [place] [address] 12/17/2022 08:29:28 12/17/2022 09:09:55 Osteoarthritis of left knee joint 6771472802 57054 M17.12 [id number] Chacorta Dnulap MD [facility] [place] [address] [place] [address] 03/18/2023 08:33:10 03/18/2023 09:24:01 History of right total knee replacement 5366553949 635529 Z96.651 Osteoarthr itis of left knee joint 0394128530 96345 M17.12 [id number] JENNIFER Vanessa [facility] [place] [address] [place] [address] 06/17/2023 14:06:51 06/17/2023 14:34:25 Osteoarthritis of left knee joint 2115786728 80784 M17.12 History of right total knee replacement 1870790838 576719 Z96.781 [id number] Chacorta Dunlap MD [facility] [place] [address] [place] [address] 09/16/2023 09:17:38 09/17/2023 14:54:27 Osteoarthritis of left knee joint 1480871954 17787 M17.12 Health Concerns Section Related Observation LastModified by Organization Detai ls LastModified Time None Recorded Concern Status LastModified by Organization Details LastModified Time None Recorded Advance Directives Directive None Recorded Payers Insurance Date Sequence Insurance Name Policy Number Policy Arce Covered Member ID Arce Member ID Guarantor Name 09/16/2023 1 [employer] (PPO) [id number] 1 Delilah Baltazar [id number] Delilah Baltazar 09/16/2023 1 UHC - AARP - SECURE HORIZONS - MEDICARE COMPLETE PLAN 2 (MEDICARE REPLACEMENT HMO) [id number] Delilah Baltazar [id number] 4- Delilah Baltazar 09/16/2023 1 [employer] (MEDICARE REPLACEMENT/AD VANTAGE - PPO) [id number] 1 Delilah Baltazar [id number] Delilah Baltazar Notes Date Note Type Note Provider Name and Address Organization Details Recorded Time 06/17/2023 text/html Patient returns with left knee pain she has had a previous right total knee arthroplasty this is being followed by Dr. Dunlap in the meantime her left knee continues to bother her she has severe medial compartment osteoarthritis with nvub-db-gjci changes left knee. It has been 3 [...] shot of cortisone today. JENNIFER Vanessa [address] [facility], [facility] [address], [place], [address], [facility] 06/17/2023 14:40:18 09/16/2023 text/html Patient returns. She would like to have another cortisone shot in her left knee. She has icie-el-abwh medial compartment osteoarthritis her left knee. Her [...] on the right without radiographic complication and rfkx-mb-ocbq medial compartment osteoarthritis left knee. Chacorta Dunlap MD [address] [place] [address], [place], [address], [place] [facility] 09/17/2023 13:58:47 OBGyn Episode No OBEpisode recorded.
--- OUTSIDE RECORDS SUMMARY | 2025-07-09 09:20 | XMS_ITS | Clinical Summary ---
Author Organization [facility] Address [address] [place] [address] Care Team Providers Care Pan Reclaim Processor Name Role Phone Jared Nick MD Primary Care Provider [phone] Allergies Active Allergy Reactions Criticality Noted Date [...] RESPIMAT INHAL) Inhale Acti ve vit D3-vit D-sievnfttv-yosl 084-163-69-370 bkbx-wvx-ng-mg tablet Take by mouth Active perindopril (ACEON) 8 mg tablet Take 1 tablet (8 mg total) by mouth daily 11/18/2021 Active Active Problems Problem Noted Date Diagnosed Date Infrarenal abdominal aortic aneurysm (AAA) witho ut rupture 03/30/2024 Assessment & Plan (04/05/2025 10:00 AM CDT): Slight growth of her abdominal aortic aneurysm, now measuring 3.8 cm from 3.4 cm last year. Continue risk factor modification with ASA statin therapy and good blood pressure control. Follow up in 1 year with repeat aortoiliac duplex Assessment & Plan (03/30/2024 9:15 AM CDT): 3.4 cm from outside reference CTA of abd/pelvis. Follow up 1 year with aortic duplex continue good blood pressure control and asa and statin therapy. Pre-operative cardiovascular examination 022 Essential hypertension 12/31/2021 Assessment & Plan (04/05/2025 10:00 AM CDT): Stable continue amlodipine Mixed hyperlipidemia 12/31/2021 Assessment & Plan (04/05/2025 10:00 AM CDT): Stable continue Lipitor Chronic obstructive pulmonary disease 12/31/2021 History of tobacco abuse 12/31/2021 Surgical History Surgery Date Site/Laterality Comments TONSILLECTOMY Medical History Medical History Date Comments Hypertension Hyperlipidemia Wears dentures Acid indigestion COPD (chronic obstructive pulmonary disease) Pneumonia Family History Medical History Relation Name Comments Colon cancer Father Colon cancer Mother No Known Problems Sister Relation Name Status Comments Father Mother Sister Alive Social History Tobacco Use Types Packs/Day Years Used Date Smoking Tobacco: Former Cigarettes Q uit: 2020 Comments Unknown Sex and Gender Information Value Date Recorded Sex Assigned at Not on file Legal Sex Female 10:48 AM CDT Gender Identity Not on file Sexual Orientation Not on file Last Filed Vital Signs Vital Sign Reading Time Taken Comments Blood Pressure 158/71 04/05/2025 9:36 AM CDT Pulse 69 04/05/2025 9:36 AM CDT Temperature - - Respiratory Rate - - Oxygen Saturation 98% 03/30/2024 8:28 AM CDT Inhaled Oxygen Concentration - - Weight 58.5 kg (129 lb) 04/05/2025 9:36 AM CDT Height 157.5 cm (5' 2) 04/05/2025 9:36 AM CDT Body Mass Index 23.59 04/05/2025 9:36 AM CDT Plan of Treatment Health Maintenance Due Date Last Done Comments Colon Cancer Screening-Colonoscopy 1950 Depression Screening 1950 Fall Risk Assessment 1950 Hepatitis C Screening 1950 Osteoporosis Screening-Bone Density Scan 1950 Hepatitis B Screening 1968 Well Visit 65+ 2015 Zoster Vaccine (2 of 3) 02/04/2019 12/10/2018 Pneumococcal vaccine 65+ (2 of 2 - PCV) 12/11/2019 12/10/2018 Covid-19 Vaccine (5 - 2024-2 6 season) 2025 10/30/2021, 04/19/2021, 09/27/2020, Additional history exists Influenza Vaccine (#1) 2025 , 04/08/2023, 04/01/2020 DTaP/Tdap/Td Vaccine (2 - Td or Tdap) 12/10/2028 12/10/2018, 12/10/2018 Insurance AETNA MEDICARE Care Teams Pan Reclaim Processor Relationship Specialty Start Date End Date Jared Nick MD [address] [facility] [address] [place] [address] PCP - General Internal Medicine 11/28/21
--- OUTSIDE RECORDS SUMMARY | 2025-07-09 09:20 | XMS_ITS | Clinical Summary ---
Author Organization [email or web address] Address [address] [place] [address] Care Team Providers Care Roastmaster Name Role Phone Rickie Alatorre DO Primary Care Provider [phone] Source Comments [email or web address],non-owned Affiliates and Associated Physician Practices is amultiple site organization consisting of ambulatory clinics and hospital sitesin [place], [place], [place] and [place]. This disclosure is being madepursuant to the Care Everywhere program and may not contain all information available regarding this patient. Last updated 18.[email or web address] Allergies Active Allergy Reactions Criticality Noted Date [...] mouth 2 times daily Active HYDROcodone-mayo taminophen ([place]) 7.5-325 MG tablet Take 1 tablet by mouth as needed for Pain Active Cholecalciferol (Vitamin D) 125 MCG (5000 UT) CAPS Take 5,000 Units by mouth once daily Active Tiotropium [place]-Olodate rol (Stiolto Respimat) 2.5-2.5 MCG/ACT Inhale 1 [...] 1:27 PM CDT Height 157.5 cm (5' 2) 03/26/2022 1:27 PM CDT Body Mass Index [...] 2000 ZOSTER VACCINE (1 of 2) 2000 DEPRESSION SCREENING 07/13/2024 MEDICARE AWV CALENDAR YEAR 2024 COVID-19 VACCINE ( - 2024-2 6 season) 2025 INFLUENZA VACCINE (#1) 2025 Respiratory Syncytial Virus (RSV) Vaccine Pt: [...] patient's age to complete this topic Insurance [facility] AETNA MEDICARE ADV * Guarantor: TONY BALTAZAR Account Type Relation to Patient Date of Phone Billing Address Personal/Family [address] [place] [address] AETNA MEDICARE ADV SELF PAY NO INSURANCE Member Subscriber Plan / Payer (Ef fective for All Dates) Name:Tony Baltazar Member ID:Not on file Relation to Subscriber:Not on file Name:TONY BALTAZAR Subscriber ID:Not on file Address: [address] [address] Payer ID:Not on file Group ID:Not on file Type:Self Pay Address: [place], [place] * Guarantor: TONY BALTAZAR Account Type Relation to Patient Date of Phone Billing Address Personal/Family [address] [place] [address] [facility] MEDICARE ADV SELF PAY NO INSURANCE Member Subscriber Plan / Payer (Ef fective for All Dates) Name:Tony Baltazar Member ID:Not on file Relation to Subscriber:Not on file Name:TONY BALTAZAR Subscriber ID:Not on file Address: [address] [place] [address] Payer ID:Not on file Group ID:Not on file Type:Self Pay Address: [place], [place] * Guarantor: TONY BALTAZAR Account Type Relation to Patient Date of Phone Billing Address Personal/Family [address] [place] [address] [facility] MEDICARE ADV SELF PAY NO INSURANCE Member Subscriber Plan / Payer (Ef fective for All Dates) Name:Tony Baltazar Member ID:Not on file Relation to Subscriber:Not on file Name:TONY BALTAZAR Subscriber ID:Not on file Address: [place] [address] Payer ID:Not on file Group ID:Not on file Type:Self Pay Address: [place], [place] Care Teams Roastmaster Relationship Specialty Start Date End Date Rickie Alatorre DO [address] [place], [place] [phone] PCP - General Internal Medicine 03/26/22
== END 2025-07-09 09:07 | disposition home or self-care (01) ==
PROVIDERS: PCP Nurse Practitioner; Visit Provider Nurse Practitioner Family
DX: Z12.2 Encounter for screening for malignant neoplasm of respiratory organs (principal); Z87.891 Personal history of nicotine dependence
CPT/HCPCS: 71271